=== PATIENT | male | born 1950 | race Caucasian/White ===

== ENCOUNTER → 2016-09-26 | Outpatient (CLI) | payer MEDICARE, OTHER ==
--- NOTE | 2016-09-27 17:20 | CR ---
EXAM DATE: 09/26/16 PATIENT'S AGE: 66 Patient: KATHERYN RAMIREZ Facility: [place], [place] Site . Site : 1950 Study: XRay Knee Left [id number]/9/2017 10:50:38 AM Ordering Physician: Luisa Tam Final Report: Indication: Osteoarthritis. Technique: Weightbearing AP and lateral views of the left knee as well as a sunrise view. Comparison: None. Findings: No obvious joint effusion. Mild narrowing at all 3 compartments with early marginal osteophyte formation. Mild chondrocalcinosis. Possible 8 mm loose body in the posterolateral aspect of the medial compartment. Impression: 1. Osteoarthritis, as above. 2. Chondrocalcinosis. 3. Possible 8 mm loose body. Dictated by Wilson Layne MD @ Sep 27 2016 2:14PM (Electronic Signature) Report Signed by Proxy and Original Signed Document filed in the Medical Record. JOHN
== END ==
LOC: MW.CHFP 10:22
PROVIDERS: ATTEND Family Medicine
DX: M17.12 Unilateral primary osteoarthritis, left knee (principal); M11.262 Other chondrocalcinosis, left knee
CPT/HCPCS: 20610; 73562-26-LT; 73562-LT; G0463; J3301

== ENCOUNTER → 2016-09-27 | Outpatient (CLI) | payer MEDICARE, OTHER | LOC: MW.CHENT 08:00 | PROVIDERS: ATTEND Otolaryngology | DX: H91.90 Unspecified hearing loss, unspecified ear (principal); H61.20 Impacted cerumen, unspecified ear; Z98.890 Other specified postprocedural states | CPT/HCPCS: 69210; G0463 ==

== ENCOUNTER → 2016-10-10 | Outpatient (CLI) | payer MEDICARE, OTHER ==
--- NOTE | 2016-10-10 12:44 | CR ---
EXAMINATION: Left knee HISTORY: Osteoarthritis COMPARISON: 09/26/2016 TECHNIQUE: PA view FINDINGS/IMPRESSION: There is moderate joint space narrowing within the medial compartment and mild joint space narrowing within the lateral compartment. Chondrocalcinosis is noted, likely CPPD. No fr acture or acute osseous abnormality.
== END ==
LOC: MW.CHORTHO 07:47
PROVIDERS: ATTEND Orthopaedic Surgery
DX: M17.12 Unilateral primary osteoarthritis, left knee (principal)
CPT/HCPCS: 73560-26-LT; 73560-LT; 99203

== ENCOUNTER → 2016-11-05 | Outpatient (CLI) | payer MEDICARE, OTHER | LOC: MW.CHORTHO 08:00 | PROVIDERS: ATTEND Orthopaedic Surgery | DX: M17.12 Unilateral primary osteoarthritis, left knee (principal) | CPT/HCPCS: G0463 ==

== ENCOUNTER 2017-10-13 09:31 | Inpatient (IN) | payer MEDICARE, OTHER ==
[~2017-10-13 09:31] MED LIST: Acetaminophen 1,000 MG in Premix Bag 1 BAG IV SCH; Famotidine 20 MG/2 ML SDV IVPUSH SCH; Ketorolac 30 MG/ML SDV IVPUSH SCH; Ropivacaine 49.25 ML, Ketorolac 30 MG, EPINEPHrine 0.5 MG, cloNIDine 80 MCG in Sodium C... INJECT SCH; Scopolamine 1.5 MG Transdermal Patch TRDERM SCH; Tranexamic Acid 4,000 MG in Sodium Chloride 0.9% 100 ML IV SCH; ceFAZolin 2 GM in Premix Bag 1 BAG IV SCH; oxyCODONE ER 20 MG TAB.ER PO SCH
[2017-10-13] MEDS: Lactated Ringers 1,000 ML IV SCH ×2 (09:54→18:29)
[2017-10-13] MEDS: oxyCODONE ER 10 MG TAB.ER PO SCH ×2 (10:04→20:29)
[2017-10-13] MEDS ORDERED: Propofol 200 MG/20 ML SDV ONE (11:34)
[2017-10-13] MEDS ORDERED: Lidocaine 2% 5 ML SDV ONE (11:34)
--- NOTE | 2017-10-13 11:34 | PCM.PREANE ---
Preanesthetic Assessment - Procedure Proposed Procedure: Left TKR - Anesthesia/Transfusion/Family Hx Anesthesia History: Prior Anesthesia Without Reaction Family History of Anesthesia Reaction: No Intubation History: Unknown - Review of Systems General: Weakness (right side hemiplegia due to stroke >10 years ago) Pulmonary: Other (snores; per - he has sleep apnea but avoids Dx: no CPAP ) Cardiovascular: No Symptoms Gastrointestinal: No Symptoms Neurological: Pre-Existing Deficit (right hemiplegia) Other: Reports: Diabetes - Physical Assessment NPO Status Date: 10/12/17 NPO Status Time: 23:00 O2 Sat by Pulse Oximetry: 95 Respiratory Rate: 16 Vital Signs: Last Vital Signs Temp 96.8 F 10/13/17 09:54 Pulse 59 L 10/13/17 09:54 Resp 16 10/13/17 09:54 BP 147/70 H 10/13/17 09:54 Pulse Ox 95 10/13/17 09:54 Height: 5 ft 9 in Weight: 218 lb ASA Class: 3 Mental Status: Alert & Oriented x3 Airway Class: Mallampati = 2 Dentition: Reports: Normal Dentition, [place](s) (#11) Thyro-Mental Finger Breadths: 3 Mouth Opening Finger Breadths: 3 ROM/Head Extension: Limited/Partial Lungs: Clear to Auscultation, Normal Respiratory Effort Cardiovascular: Regular Rate, Regular Rhythm, No Murmurs - Lab Values: Laboratory Last Values Blood Type A POSITIVE 10/13/17 10:23 Antibody Screen NEGATIVE 10/13/17 10:23 - Allergies Allergies/Adverse Reactions: Allergies Allergy/AdvReac Type Severity Reaction Status Date / Time No Known Allergies Allergy Verified 10/08/17 14:35 - Blood Blood Available: No - Anesthesia Plan Pre-Op Medication Ordered: Other (per surgeon protocol) - Acknowledgements Anesthesia Type Planned: Spinal (sedation/genral PRN) Pt an Appropriate Candidate for the Planned Anesthesia: Yes Alternatives and Risks of Anesthesia Discussed w Pt/Guardian: Yes Pt/Guardian Understands and Agrees with Anesthesia Plan: Yes PreAnesthesia Questionnaire Other HEENT History: top permanent partial, has reading glasses Cardiovascular History: Reports: High Cholesterol, Hypertension Respiratory History: Reports: Sleep Apnea Other Respiratory History: does not use CPAP Gastrointestinal History: Reports: Other (See Below) Other Gastrointestinal History: occasional heartburn Genitourinary History: Reports: BPH Musculoskeletal History: Reports: Osteoarthritis Neurological History: Reports: CVA Other Neuro History: "stroke 12 yrs ago" Psychiatric History: Reports: Anxiety, Depression Endocrine/Metabolic History: Reports: Diabetes, Type II, Obesity/BMI 30+ - Past Surgical History Head Surgeries/Procedures: Reports: None GI Surgical History: Reports: Colonoscopy, Hernia, Abdominal Male Surgical History: Reports: Vasectomy Musculoskeletal Surgical History: Reports: Shoulder Surgery Other Musculoskeletal Surgeries/Procedures:: hx rt ankle fusion and rt rotator cuff repair - SUBSTANCE USE Smoking Status *Q: Never Smoker Recreational Drug Use History: No - HOME MEDS Home Medications: Home Meds Aspirin [[place] Aspirin] 81 mg PO DAILY 10/08/17 [History] Escitalopram Oxalate 20 mg PO DAILY 10/08/17 [History] Lisinopril 20 mg PO DAILY 10/08/17 [History] Meloxicam [Mobic] 7.5 mg PO DAILY 10/08/17 [History] Tamsulosin HCl [Flomax] 0.4 mg PO DAILY 10/08/17 [History] Tolterodine Tartrate [Tolterodine Tartrate ER] 4 mg PO DAILY 10/08/17 [History] atorvaSTATin Calcium [Atorvastatin Calcium] 40 mg PO BEDTIME 10/08/17 [History] metFORMIN HCl [Metformin HCl ER] 500 mg PO BID 10/08/17 [History] traMADol HCl [Tramadol HCl] 1 tab PO ASDIRECTED PRN 10/08/17 [History] - CURRENT (IN HOUSE) MEDS Current Meds: Current Medications Famotidine (Pepcid) 40 mg IVPUSH ONARRIVE [facility] Last Admin: 10/13/17 09:58 Dose: 40 mg Acetaminophen 1,000 mg/ Premix 100 mls @ 400 mls/hr IV ONARRIVE [facility] Last Admin: 10/13/17 10:05 Dose: 400 mls/hr Cefazolin Sodium/Dextrose 2 gm (/ Premix) 50 mls @ 100 mls/hr IV ONCALL [facility] Ropivacaine 49.25 ml/Ketorolac Tromethamine 30 mg/Epinephrine HCl 0.5 mg/ Clonidine HCl 80 mcg/ Sodium Chloride 100 mls @ 50 mls/sec INJECT ASDIRECTED [facility] Lactated Ringer's (Ringers, Lactated) 1,000 mls @ 100 mls/hr IV ASDIRECTED [facility] Last Admin: 10/13/17 09:54 Dose: 100 mls/hr Tranexamic Acid 4,000 mg/ (Sodium Chloride) 140 mls @ 600 mls/hr IV ASDIRECTED TAYE Ketorolac Tromethamine (Toradol) 30 mg IVPUSH ONARRIVE [facility] Last Admin: 10/13/17 09:59 Dose: 30 mg Oxycodone HCl (Oxycontin) 20 mg PO ONARRIVE TAYE Oxycodone HCl (Oxycontin) 10 mg PO ONARRIVE [facility] Last Admin: 10/13/17 10:04 Dose: 10 mg Scopolamine (Transderm-Scop) 1.5 mg TRDERM ONARRIVE [facility] Last Admin: 10/13/17 09:56 Dose: 1.5 mg Discontinued Medications Tranexamic Acid (Cyklokapron) Confirm Administered Dose 4,000 mg .ROUTE .STK- MED ONE Stop: 10/13/17 07:17
[2017-10-13] MEDS ORDERED: fentaNYL 100 MCG/2 ML SDV ONE (11:35)
[2017-10-13] MEDS ORDERED: Ondansetron 4 MG/2 ML SDV ONE (11:35)
[2017-10-13] MEDS ORDERED: ePHEDrine 50 MG/ML SDV ONE (11:35)
[2017-10-13] MEDS ORDERED: Midazolam 1 MG/ML 2 ML SDV ONE (11:35)
[2017-10-13] MEDS ORDERED: ceFAZolin/Dextrose,Iso-Osmotic 2 GM/50 ML Duplex Bag IV ONE (11:35)
[2017-10-13] MEDS ORDERED: Ketorolac 30 MG/ML SDV ONE (11:35)
[2017-10-13] MEDS ORDERED: fentaNYL 100 MCG/2 ML SDV IVPUSH PRN (14:00)
[2017-10-13] MEDS ORDERED: Ondansetron 4 MG/2 ML SDV IV PRN (14:35)
[2017-10-13] MEDS ORDERED: Bisacodyl 10 MG Supp RECTAL PRN (14:36)
[2017-10-13] MEDS ORDERED: Aluminum Hydroxide/Magnesium Hydroxide/Simethicone Susp 30 ML Cup PO PRN (14:36)
[2017-10-13] MEDS ORDERED: diphenhydrAMINE 25 MG Cap PO PRN (14:36)
[2017-10-13] MEDS ORDERED: oxyCODONE 5 MG Tab PO PRN (14:36)
--- NOTE | 2017-10-13 14:36 | PCM.OPNOTE ---
- General Post-Op/Procedure Note Date of Surgery/Procedure: 10/13/17 Operative Procedure(s): L TKA Post-Op Diagnosis: DJD left knee Anesthesia Technique: Moderate Sedation, Spinal Primary Surgeon: Liset Love Disaster Director: Hilda Newberry in mLs: 50 Condition: Good Free Text/Narrative:: tt=61 min #[id number]
[2017-10-13] MEDS ORDERED: Morphine PF 30 MG/30 ML PCA Vial IV SCH (14:45)
--- NOTE | 2017-10-13 15:16 | PCM.POSTAN ---
POST ANESTHESIA ASSESSMENT - MENTAL STATUS Mental Status: Alert, Oriented - RESPIRATORY Respiratory Status: Respiratory Rate WNL, Airway Patent, O2 Saturation Stable, Supplemental Oxygen - CARDIOVASCULAR CV Status: Pulse Rate WNL, Blood Pressure Stable - GASTROINTESTINAL GI Status: No Symptoms - PAIN Pain Score: 0 - POST OP HYDRATION Hydration Status: Adequate & Stable
--- NOTE | 2017-10-13 16:24 | OR ---
SURGEON: Liset Love MD DATE OF PROCEDURE: 10/13/2017 PREOPERATIVE DIAGNOSIS: Degenerative joint disease of left knee, tricompartmental. POSTOPERATIVE DIAGNOSIS: Degenerative joint disease of left knee, tricompartmental. PROCEDURE: Left total knee arthroplasty. BAKERY TEAM LEADER: Hilda Newberry PA-C. ANESTHESIA: Spinal with sedation. ESTIMATED BLOOD LOSS: 50 mL. TOURNIQUET TIME: 61 minutes. COMPLICATIONS: None. DVT PROPHYLAXIS: PAS boot and MIKE hose to the nonoperative leg. IMPLANTS USED: Janiya Persona femoral component size 10 standard (LPS), tibial component size G, 12 mm all-polyethylene articular surface, and 32 mm all-polyethylene patella. INTRAOPERATIVE FINDINGS: Showed severe tricompartmental degenerative changes with osteophyte formation. Multiple loose bodies were noted within the joint. No significant synovitis was noted. BRIEF HISTORY: Russell is a 67-year-old male, who has had complaint of progressive left knee pain. He has attempted conservative treatment, which did not give him lasting improvement. Due to his lack of response to conservative treatment, I did recommend surgical intervention. The risks and goals of the procedure were discussed with the patient and were documented preoperatively. He agreed to proceed. DESCRIPTION OF PROCEDURE: The patient was properly identified and brought to the operating room. The patient was then transferred from the operating room cart and placed on the operating table in a supine position. Anesthesia was administered by the anesthesia staff. After adequate anesthesia was obtained, a well-padded tourniquet was applied to the surgical lower extremity. Patiño catheter was placed. The lower extremity was then prepped in standard fashion using ChloraPrep solution. It was then sterilely draped. A time-out was performed to ensure correct site and procedure. Preoperative antibiotics were given along with one gram tranexamic acid IV. The surgical site had been marked preoperatively. An Esmarch was used to exsanguinate the right lower extremity and the tourniquet was inflated. An incision was made over the anterior aspect of the knee. The subcutaneous tissues were dissected down to the level of the fascia. A medial parapatellar approach to the knee was made. A portion of the infrapatellar fat pad was then excised. The distal femur was then exposed. The step reamer was used to gain access to the intramedullary canal. This was placed in 6 degrees of valgus. Pins were placed. The distal femoral cutting block was placed and the distal femoral cut was made. Instrumentation was then removed. The femur was then sized. Both Whitesides' line and the epicondylar axis were then marked with electrocautery. The 4-in-1 cutting block was placed. This was placed in a slightly externally rotated position, which corresponded well with the previously drawn lines. The cutting guide was then pinned into position. An Crispin wing guide was used to check the depth of resection of our anterior condylar cut and it was felt that no notching would occur. The anterior condylar cut was then made followed by the posterior condylar cut. Both the posterior chamfer and anterior chamfer cuts were then made. The cutting block was then removed along with the excess bony remnants. We then turned our attention to the tibia. The anterior cruciate ligament and posterior cruciate ligament were released and a posterior cruciate ligament retractor was placed to allow the tibia to be pulled anteriorly. The tibial extra-medullary guide was then positioned. We chose to take approximately 2 mm off the lowest side. The proximal tibia cutting guide was then placed and screwed into position. The proximal tibial resection was then made with care being taken to protect the patellar tendon. The bony resection was then removed. The remainder of the medial and lateral meniscus were then excised. Care was taken to protect the popliteus tendon. The tibia was then sized to the appropriate size. The distal femur was then elevated. The posterior capsule was stripped off the distal femur both medially and laterally. The posterior capsule along with the medial and lateral gutters were then injected with a standard mixture consisting of clonidine, epinephrine, Toradol, and ropivacaine unless any allergies were found preoperatively. The femoral component was then placed onto the distal femur in a slightly lateral position. This fit the femur well. A box cut was then made without difficulty. This was then removed. The tibial trial along with the polyethylene liner was then placed. The knee came easily into full extension and was stable to varus and valgus stressing both in full extension and flexion, any additional releases were performed at this time. We then returned our attention to the patella. The patella was everted and towel clamps were used to hold the patella in position. It was resected to a 15 millimeter thickness. It was then sized to the appropriate size. It was prepared in the usual fashion after placing the predetermined size clamps. This was placed in a slightly superior and medial position. The clamp was then removed. The patellar trial button was placed. The knee was taken through a range of motion using the no-touch technique. The patella tracked centrally. A drop keke was then placed to check alignment. All instruments were then removed from the knee. The tibial sizer was then placed on the tibia. The tibia was prepared in the usual fashion using the reamer and broach. This was then removed. All bony surfaces were copiously irrigated with Pulsavac solution. They were then suctioned dry. Cement was prepared on the back table in the usual manner. Antibiotic impregnated cement was used if the patient was diabetic. Once it was prepared, the bone ends were again suctioned dry. The tibia was cemented into place first. This was malleted into position. Excess cement was then cleared. The femur was then placed in a similar manner. We placed the polyethylene trial into place and the knee was brought into full extension. An axial load was placed while keeping the knee in full extension. The patella button was also cemented into position and the clamp was used to hold this in place as the cement was allowed to cure. The wound was copiously irrigated with saline using a Pulsavac supervisor fireworks assembly. Following this, 1 gram of tranexamic acid was applied topically to the wound during the curing process. After we had adequate curing of the cement, the knee was again taken through a range of motion. The size of the polyethylene was then determined. The polyethylene trial was then removed. The tibial tray was suctioned to make sure there was no remaining soft tissue or cement. Excess cement was cleared from around the edges of the prosthesis as well. The tourniquet was then deflated. We were able to observe for any excess bleeding and none was noted. Electrocautery was used to maintain hemostasis. An additional gram of tranexamic acid was given IV. The retractors were again placed and the predetermined polyethylene was then placed. This was locked into position without difficulty. The knee was again taken through a range of motion with no change from the prior exam. The fascial layer was closed with #1 Vicryl. The subcutaneous tissues were closed with 2-0 Vicryl. The skin was closed with daksha. Xeroform gauze was placed over the wound and a bulky dressing was applied. The patient was then awakened from anesthesia and transferred back to the operating room cart. They were brought to the recovery room in stable condition. All needle and sponge counts were correct. LAURITA / NATALIIA /[id number]
--- NOTE | 2017-10-13 16:27 | PCM.CONS ---
H&P History of Present Illness - General Date of Service: 10/13/17 Admit Problem/Dx: Admission Diagnosis/Problem Admission Diagnosis/Problem Replacement of total knee joint Source of Information: Patient, Old Records (Dr Justin Love pre-operative note reviewed) History Limitations: Reports: No Limitations - History of Present Illness Initial Comments - Free Text/Narative: This 67 year old male with pmh of CVA 10+ years ago, DM Type 2, HTN, dyslipidemia, and BPH presented today for L TKA with Dr Love. He recently has arrived to Med/Surg from PACU. He reports he is doing well, no pain at this time. Denies chest pain, SOB or N/V. He is alert, but drowsy from pain medications. and daughter at bedside. Hospitalist service consulted for medical management. - Related Data Allergies/Adverse Reactions: Allergies Allergy/AdvReac Type Severity Reaction Status Date / Time No Known Allergies Allergy Verified 10/13/17 11:55 Home Medications: Home Meds Aspirin [[place] Aspirin] 81 mg PO DAILY 10/08/17 [History] Escitalopram Oxalate 20 mg PO DAILY 10/08/17 [History] Lisinopril 20 mg PO DAILY 10/08/17 [History] Meloxicam [Mobic] 7.5 mg PO DAILY 10/08/17 [History] Tamsulosin HCl [Flomax] 0.4 mg PO DAILY 10/08/17 [History] Tolterodine Tartrate [Tolterodine Tartrate ER] 4 mg PO DAILY 10/08/17 [History] atorvaSTATin Calcium [Atorvastatin Calcium] 40 mg PO BEDTIME 10/08/17 [History] metFORMIN HCl [Metformin HCl ER] 500 mg PO BID 10/08/17 [History] traMADol HCl [Tramadol HCl] 1 tab PO ASDIRECTED PRN 10/08/17 [History] Past Medical History Other HEENT History: top permanent partial, has reading glasses Cardiovascular History: Reports: High Cholesterol, Hypertension. Denies: CAD Respiratory History: Reports: Sleep Apnea Other Respiratory History: does not use CPAP Gastrointestinal History: Reports: Other (See Below) Other Gastrointestinal History: occasional heartburn Genitourinary History: Reports: BPH Musculoskeletal History: Reports: Osteoarthritis Neurological History: Reports: CVA (12 years ago) Psychiatric History: Reports: Anxiety, Depression Endocrine/Metabolic History: Reports: Diabetes, Type II, Obesity/BMI 30+ Oncologic (Cancer) History: Reports: None - Past Surgical History Head Surgeries/Procedures: Reports: None GI Surgical History: Reports: Colonoscopy, Hernia, Abdominal Male Surgical History: Reports: Vasectomy Musculoskeletal Surgical History: Reports: Shoulder Surgery Other Musculoskeletal Surgeries/Procedures:: hx rt ankle fusion and rt rotator cuff repair Social & Family History - Tobacco Use Smoking Status *Q: Never Smoker - Alcohol Use Alcohol Use History: No - Recreational Drug Use Recreational Drug Use: No - Living Situation & Occupation Living situation: Reports: H&P Review of Systems - Review of Systems: Review Of Systems: See Below General: Reports: No Symptoms. Denies: Fever, Chills, Malaise, Weakness, Fatigue Pulmonary: Reports: No Symptoms. Denies: Shortness of Breath Cardiovascular: Reports: No Symptoms. Denies: Chest Pain, Palpitations, Edema, Lightheadedness Gastrointestinal: Reports: No Symptoms. Denies: Abdominal Pain, Black Stool, Bloody Stool, Nausea, Vomiting Genitourinary: Reports: No Symptoms. Denies: Dysuria, Frequency, Burning Musculoskeletal: Reports: No Symptoms. Denies: Joint Pain Skin: Reports: No Symptoms Neurological: Reports: No Symptoms. Denies: Confusion Exam - Exam Exam: See Below - Vital Signs Vital Signs: Last Vital Signs Temp 97.7 F 10/13/17 14:31 Pulse 61 10/13/17 15:06 Resp 13 10/13/17 15:11 BP 119/58 L 10/13/17 15:11 Pulse Ox 97 10/13/17 15:11 Weight: 98.883 kg - Exam Quality Assessment: Supplemental Oxygen, Urinary Catheter, DVT Prophylaxis General: Alert, Oriented, Cooperative HEENT: Conjunctiva Clear, Posterior Pharynx Clear Neck: Supple, Trachea Midline Lungs: Clear to Auscultation, Normal Respiratory Effort Cardiovascular: Regular Rate, Regular Rhythm, Normal S1, Normal S2. No: Systolic Murmur GI/Abdominal Exam: Normal Bowel Sounds, Soft, Non-Tender, No Organomegaly, No Distention, No Abnormal Bruit, No Mass, Pelvis Stable Extremities: Normal Inspection, Normal Range of Motion, Non-Tender, No Pedal Edema, Normal Capillary Refill Skin: Incision (Dressing intact to L knee, polar care in place) Neuro Extensive - Mental Status: Alert, Oriented x3, Normal Mood/Affect Neuro Extensive - Motor, Sensory, Reflexes: CN II-XII Intact Psychiatric: Alert, Normal Affect, Normal Mood - Patient Data Lab Results Last 24 hrs: Laboratory Results - last 24 hr 10/13/17 10/13/17 Range/Units 10:23 14:38 POC Glucose 100 (60-110) mg/dL Blood Type A POSITIVE Antibody Screen NEGATIVE Consult PN Assessment/Plan Procedures: Procedures ASSAY OF BLOOD/URIC ACID (07/02/16) COMPLETE CBC W/AUTO DIFF WBC (09/24/17) COMPREHEN METABOLIC PANEL (04/04/17) GLYCOSYLATED HEMOGLOBIN TEST (09/24/17) IIV4 VACC NO PRSV 0.5 ML IM (04/04/17) LIPID PANEL (04/04/17) METABOLIC PANEL TOTAL CA (09/24/17) MRI JNT OF LWR EXTRE W/O DYE (09/03/17) OFFICE/OUTPATIENT VISIT EST (09/24/17) OFFICE/OUTPATIENT VISIT EST (10/11/15) OFFICE/OUTPATIENT VISIT NEW (07/24/15) PPSV23 VACC 2 YRS+ SUBQ/IM (04/04/17) PROTHROMBIN TIME (09/24/17) RBC SED RATE AUTOMATED (07/02/16) ROUTINE VENIPUNCTURE (09/24/17) THER/PROPH/DIAG INJ SC/IM (04/16/16) UR ALBUMIN SEMIQUANTITATIVE (01/02/17) URINALYSIS AUTO W/SCOPE (09/24/17) X-RAY EXAM CHEST 2 VIEWS (09/24/17) X-RAY EXAM NECK SPINE 2-3 VW (02/06/17) X-RAY EXAM OF ANKLE (05/23/17) X-RAY EXAM OF KNEE 3 (09/26/16) X-RAY EXAM OF SHOULDER (02/06/17) (1) S/P total knee arthroplasty SNOMED Code(s): 6783274035542, 1497653615572 Code(s): Z96.659 - PRESENCE OF UNSPECIFIED ARTIFICIAL KNEE JOINT Current Visit: Yes Qualifiers: Laterality: left Qualified Code(s): Z96.652 - Presence of left artificial knee joint (2) DM type 2 (diabetes mellitus, type 2) SNOMED Code(s): 97888863 Code(s): E11.9 - TYPE 2 DIABETES MELLITUS WITHOUT COMPLICATIONS Current Visit: Yes Qualifiers: Diabetes mellitus chcf insulin use: without chcf use Diabetes mellitus complication status: without complication Qualified Code(s): E11.9 - Type 2 diabetes mellitus without complications (3) HTN (hypertension) SNOMED Code(s): 12192148 Code(s): I10 - ESSENTIAL (PRIMARY) HYPERTENSION Current Visit: Yes Qualifiers: Hypertension type: essential hypertension Qualified Code(s): I10 - Essential (primary) hypertension (4) Dyslipidemia SNOMED Code(s): 212129712 Code(s): E78.5 - HYPERLIPIDEMIA, UNSPECIFIED Current Visit: Yes (5) BPH (benign prostatic hyperplasia) SNOMED Code(s): 621954680 Code(s): N40.0 - BENIGN PROSTATIC HYPERPLASIA WITHOUT LOWER URINRY TRACT SYMP Current Visit: Yes Qualifiers: Lower urinary tract symptom presence: symptoms absent Qualified Code(s): N40.0 - Benign prostatic hyperplasia without lower urinary tract symptoms (6) History of CVA (cerebrovascular accident) SNOMED Code(s): 028579010 Code(s): Z86.73 - PRSNL HX OF TIA (TIA), AND CEREB INFRC W/O RESID DEFICITS Current Visit: Yes (7) Depression SNOMED Code(s): 46824848 Code(s): F32.9 - MAJOR DEPRESSIVE DISORDER, SINGLE EPISODE, UNSPECIFIED Current Visit: Yes Qualifiers: Depression Type: unspecified Qualified Code(s): F32.9 - Major depressive disorder, single episode, unspecified Problem List Initiated/Reviewed/Updated: Yes My Orders Last 24 Hours: My Active Orders 10/13/17 16:15 BMP [BASIC METABOLIC PANEL,BMP] [CHEM] Routine CBC WITH AUTO DIFF [HEME] Routine 10/13/17 16:19 Blood Glucose Check, Bedside [RC] TIDAC 10/13/17 17:00 Insulin Aspart [NovoLOG] See Protocol SUBCUT TIDAC Plan: This 67 year old male admitted with L TKA has pmh of HTN, DM type 2, Hx CVA and BPH. Hospitalist service consulted due to comorbidities 1. S/P L TKA: Per Orthopedics 2. DM Type 2: Controlled Hold Metformin post-operatively. May restart upon discharge home. Novolog SSI low with TIDAC blood sugar checks. Last A1c 6.1. Monitor BMP daily. Patient and family ( and daughter) educated on holding Metformin during stay. 3. HTN: Stable, continue Lisinopril. 4. Hx CVA: Stable. Due to adverse cardiovascular thrombotic events will stop Celebrex and Toradol. Monitor during stay. 5. BPH: Stable on Flomax, continue this during stay. VTE prophylaxis: Would recommended when deemed appropriate by Ortho, currently on ASA BID.
[2017-10-13] MEDS: Acetaminophen 1,000 MG in Premix Bag 1 BAG IV SCH ×2 (16:45→21:38)
--- NOTE | 2017-10-13 16:51 | CR ---
EXAMINATION: Left knee HISTORY: TKA COMPARISON: 09/03/2017 TECHNIQUE: 2 views FINDINGS/IMPRESSION: Left total knee hardware is demonstrated in good position and alignment. Postope rative soft tissue changes noted.
[2017-10-13] MEDS: Insulin Aspart 100 Units/ML 3 ML Pen SUBCUT SCH (17:11)
[2017-10-13 17:46] LABS: CHLORIDE,CL 108 mmol/L (98-107); SODIUM,NA 143 mmol/L (136-148)
[2017-10-13] MEDS ORDERED: Ketorolac 15 MG/ML SDV IVPUSH SCH (20:00)
[2017-10-13] MEDS: Docusate Sodium 100 MG Cap PO SCH (20:29)
[2017-10-13] MEDS: ceFAZolin 2 GM in Premix Bag 1 BAG IV SCH (20:30)
[2017-10-13] MEDS ORDERED: atorvaSTATin 40 MG Tab PO SCH (21:00)
[2017-10-13] MEDS ORDERED: metFORMIN 500 MG Tab.ER PO SCH (21:00)
[2017-10-14] MEDS: Insulin Aspart 100 Units/ML 3 ML Pen SUBCUT SCH ×3 (07:30→16:56)
[2017-10-14] MEDS ORDERED: Acetaminophen/oxyCODONE 325-5 MG Tab PO PRN (08:00)
[2017-10-14] MEDS ORDERED: Morphine 4 MG/ML Syringe IVPUSH PRN (08:00)
[2017-10-14] MEDS: Famotidine 20 MG Tab PO SCH (09:00)
[2017-10-14] MEDS ORDERED: Aspirin 325 MG Tab PO SCH (09:00)
[2017-10-14] MEDS: Docusate Sodium 100 MG Cap PO SCH ×2 (09:00→21:28)
[2017-10-14] MEDS: Tamsulosin 0.4 MG Cap.ER PO SCH (09:00)
[2017-10-14] MEDS: Lisinopril 10 MG Tab PO SCH (09:00)
[2017-10-14] MEDS: Escitalopram 10 MG Tab PO SCH (09:00)
[2017-10-14] MEDS: Tolterodine 2 MG Cap.ER PO SCH (09:00)
[2017-10-14] MEDS ORDERED: Celecoxib 100 MG Cap PO SCH (09:00)
[2017-10-14] MEDS ORDERED: Sodium Chloride 0.9% 10 ML Syringe FLUSH PRN (09:43)
[2017-10-14] MEDS ORDERED: Sodium Chloride 0.9% 2.5 ML Syringe FLUSH PRN (09:43)
--- NOTE | 2017-10-14 09:43 | PCM.CONSN ---
- General Info Date of Service: 10/14/17 Admission Dx/Problem (Free Text): Admission Diagnosis/Problem Admission Diagnosis/Problem Replacement of total knee joint Subjective Update: Laying in bed this morning, reports feeling ok. No chest pain or SOB. Knee pain is tolerable. Slight confusion noted. Encouraged to use IS. Functional Status: Reports: Pain Controlled, Tolerating Diet, Ambulating - Review of Systems General: Reports: No Symptoms. Denies: Fever, Fatigue Pulmonary: Reports: No Symptoms. Denies: Shortness of Breath Cardiovascular: Reports: No Symptoms. Denies: Chest Pain Gastrointestinal: Reports: No Symptoms. Denies: Abdominal Pain, Nausea, Vomiting Musculoskeletal: Reports: Joint Pain (L knee pain tolerable.) Neurological: Reports: Confusion. Denies: Dizziness, Numbness, Trouble Speaking , Weakness, Change in Speech - Patient Data Vitals - Most Recent: Last Vital Signs Temp 96.8 F 10/14/17 00:06 Pulse 62 10/14/17 00:06 Resp 18 10/14/17 00:06 BP 110/58 L 10/14/17 00:06 Pulse Ox 93 L 10/14/17 00:06 Weight - Most Recent: 98.883 kg I&O - Last 24 Hours: Intake & Output 10/13/17 10/14/17 10/14/17 22:59 06:59 14:59 Intake Total 2900 Output Total 290 Balance 2610 Lab Results Last 24 Hours: Laboratory Results - last 24 hr 10/13/17 10/13/17 10/13/17 Range/Units 10:23 14:38 16:43 WBC (4.0-11.0) K/uL RBC (4.50-5.90) M/uL Hgb (13.0-17.0) g/dL Hct (38.0-50.0) % MCV (80.0-98.0) fL MCH (27.0-32.0) pg MCHC (31.0-37.0) g/dL RDW Std Deviation (28.0-62.0) fl RDW Coeff of Shea (11.0-15.0) % Plt Count (150-400) K/uL MPV (7.40-12.00) fL Add Manual Diff Neutrophils % (Manual) (48.0-80.0) % Lymphocytes % (Manual) (16.0-40.0) % Monocytes % (Manual) (0.0-15.0) % Nucleated RBC % /100WBC Absolute Seg Neuts (1.4-5.7) Lymphocytes # (Manual) (0.6-2.4) Monocytes # (Manual) (0.0-0.8) Nucleated RBCs # K/uL Sodium (136-148) mmol/L Potassium (3.5-5.1) mmol/L Chloride (98-107) mmol/L Carbon Dioxide (21.0-32.0) mmol/L BUN (7.0-18.0) mg/dL Creatinine (0.8-1.3) mg/dL Est Cr Clr Drug Dosing mL/min Estimated GFR (MDRD) ml/min Glucose (74-106) mg/dL POC Glucose 100 84 (60-110) mg/dL Calcium (8.5-10.1) mg/dL Blood Type A POSITIVE Antibody Screen NEGATIVE 10/13/17 10/13/17 Range/Units 16:55 16:55 WBC 4.99 (4.0-11.0) K/uL RBC 4.03 L (4.50-5.90) M/uL Hgb 12.3 L (13.0-17.0) g/dL Hct 37.9 L (38.0-50.0) % MCV 94.0 (80.0-98.0) fL MCH 30.5 (27.0-32.0) pg MCHC 32.5 (31.0-37.0) g/dL RDW Std Deviation 47.3 (28.0-62.0) fl RDW Coeff of Shea 14 (11.0-15.0) % Plt Count 163 (150-400) K/uL MPV 8.90 (7.40-12.00) fL Add Manual Diff YES Neutrophils % (Manual) 38 L (48.0-80.0) % Lymphocytes % (Manual) 46 H (16.0-40.0) % Monocytes % (Manual) 16 H (0.0-15.0) % Nucleated RBC % 0.0 /100WBC Absolute Seg Neuts 1.9 (1.4-5.7) Lymphocytes # (Manual) 2.3 (0.6-2.4) Monocytes # (Manual) 0.8 (0.0-0.8) Nucleated RBCs # 0 K/uL Sodium 143 (136-148) mmol/L Potassium 4.6 (3.5-5.1) mmol/L Chloride 108 H (98-107) mmol/L Carbon Dioxide 29.5 (21.0-32.0) mmol/L BUN 22 H (7.0-18.0) mg/dL Creatinine 0.8 (0.8-1.3) mg/dL Est Cr Clr Drug Dosing 88.38 mL/min Estimated GFR (MDRD) > 60.0 ml/min Glucose 81 (74-106) mg/dL POC Glucose (60-110) mg/dL Calcium 8.0 L (8.5-10.1) mg/dL Blood Type Antibody Screen Med Orders - Current: Current Medications Al Hydroxide/Mg Hydroxide (Mag-Al Plus) 30 ml PO Q4H PRN PRN Reason: indigestion Aspirin (Aspirin) 325 mg PO BID [facility] Atorvastatin Calcium (Lipitor) 40 mg PO BEDTIME [facility] Last Admin: 10/13/17 20:30 Dose: 40 mg Bisacodyl (Dulcolax) 10 mg RECTAL DAILY PRN PRN Reason: Constipation Diphenhydramine HCl (Benadryl) 25 - 50 mg PO Q6H PRN PRN Reason: Itching Docusate Sodium (Colace) 100 mg PO BID [facility] Last Admin: 10/13/17 20:29 Dose: 100 mg Escitalopram Oxalate (Lexapro) 20 mg PO DAILY [facility] Famotidine (Pepcid) 40 mg IVPUSH ONARRIVE [facility] Last Admin: 10/13/17 09:58 Dose: 40 mg Famotidine (Pepcid) 40 mg PO DAILY [facility] Fentanyl (Sublimaze) 50 mcg IVPUSH Q5M PRN PRN Reason: Pain (severe 7-10) Stop: 10/14/17 14:00 Acetaminophen 1,000 mg/ Premix 100 mls @ 400 mls/hr IV ONARRIVE [facility] Last Admin: 10/13/17 10:05 Dose: 400 mls/hr Cefazolin Sodium/Dextrose 2 gm (/ Premix) 50 mls @ 100 mls/hr IV ONCALL [facility] Ropivacaine 49.25 ml/Ketorolac Tromethamine 30 mg/Epinephrine HCl 0.5 mg/ Clonidine HCl 80 mcg/ Sodium Chloride 100 mls @ 50 mls/sec INJECT ASDIRECTED [facility] Lactated Ringer's (Ringers, Lactated) 1,000 mls @ 100 mls/hr IV ASDIRECTED [facility] Last Admin: 10/13/17 18:29 Dose: 100 mls/hr Tranexamic Acid 4,000 mg/ (Sodium Chloride) 140 mls @ 600 mls/hr IV ASDIRECTED [facility] Insulin Aspart (Novolog) 0 unit SUBCUT TIDAC [facility]; Protocol Last Admin: 10/13/17 17:11 Dose: Not Given Ketorolac Tromethamine (Toradol) 30 mg IVPUSH ONARRIVE [facility] Last Admin: 10/13/17 09:59 Dose: 30 mg Lisinopril (Prinivil) 20 mg PO DAILY [facility] Morphine Sulfate (Morphine) 1 - 3 mg IVPUSH Q3H PRN PRN Reason: Pain Ondansetron HCl (Zofran) 4 mg IV Q6HR PRN PRN Reason: NAUSEA/VOMITING Oxycodone HCl (Oxycontin) 20 mg PO ONARRIVE [facility] Oxycodone HCl (Oxycontin) 10 mg PO ONARRIVE [facility] Last Admin: 10/13/17 10:04 Dose: 10 mg Oxycodone HCl (Oxycontin) 10 mg PO Q12HR [facility] Last Admin: 10/13/17 20:29 Dose: 10 mg Oxycodone/Acetaminophen (Percocet 325-5 Mg) 1 - 2 tab PO Q4H PRN PRN Reason: Pain Scopolamine (Transderm-Scop) 1.5 mg TRDERM ONARRIVE [facility] Last Admin: 10/13/17 09:56 Dose: 1.5 mg Tamsulosin HCl (Flomax) 0.4 mg PO DAILY [facility] Tolterodine Tartrate (Detrol La 24 Hr) 4 mg PO DAILY [facility] Discontinued Medications Cefazolin Sodium/Dextrose (Ancef) Confirm Administered Dose 2 gm IV .STK-MED ONE Stop: 10/13/17 11:36 Celecoxib (Celebrex) 200 mg PO BID [facility] Ephedrine Sulfate (Ephedrine Sulfate) Confirm Administered Dose 50 mg .ROUTE .STK-MED ONE Stop: 10/13/17 11:36 Fentanyl (Sublimaze) Confirm Administered Dose 100 mcg .ROUTE .STK-MED ONE Stop: 10/13/17 11:36 Acetaminophen 1,000 mg/ Premix 100 mls @ 400 mls/hr IV Q6H [facility] Stop: 10/14/17 04:14 Last Admin: 10/13/17 21:38 Dose: 400 mls/hr Cefazolin Sodium/Dextrose 2 gm (/ Premix) 50 mls @ 100 mls/hr IV Q8H [facility] Stop: 10/14/17 04:59 Last Admin: 10/13/17 20:30 Dose: 100 mls/hr Ketorolac Tromethamine (Toradol) Confirm Administered Dose 30 mg .ROUTE .STK- MED ONE Stop: 10/13/17 11:36 Ketorolac Tromethamine (Toradol) 15 mg IVPUSH Q6H [facility] Stop: 10/14/17 04:00 Lidocaine (Xylocaine-Mpf 2%) Confirm Administered Dose 10 ml .ROUTE .STK-MED ONE Stop: 10/13/17 11:35 Metformin HCl (Glucophage Xr) 500 mg PO BID [facility] Midazolam HCl (Versed 1 Mg/Ml) Confirm Administered Dose 2 mg .ROUTE .STK-MED ONE Stop: 10/13/17 11:36 Morphine Sulfate (Morphine [employer] 30 Mg In 30 Ml) 30 mg IV ASDIRECTED [facility]; Protocol Stop: 10/14/17 08:00 Last Admin: 10/13/17 14:56 Dose: 30 mg Ondansetron HCl (Zofran) Confirm Administered Dose 4 mg .ROUTE .STK-MED ONE Stop: 10/13/17 11:36 Oxycodone HCl (Oxycodone) 5 - 10 mg PO Q4H PRN PRN Reason: Pain Stop: 10/14/17 08:00 Propofol (Diprivan 20 Ml) Confirm Administered Dose 400 mg .ROUTE .STK-MED ONE Stop: 10/13/17 11:35 Tranexamic Acid (Cyklokapron) Confirm Administered Dose 4,000 mg .ROUTE .STK- MED ONE Stop: 10/13/17 07:17 - Exam Quality Assessment: Supplemental Oxygen, Urine Catheter, DVT Prophylaxis General: Alert, Oriented (but slightly confused, thinks he is going home and up moving in room without calling for assistance.), Cooperative, No Acute Distress Lungs: Clear to Auscultation, Normal Respiratory Effort Cardiovascular: Regular Rate, Regular Rhythm GI/Abdominal Exam: Normal Bowel Sounds, Soft, Non-Tender, No Organomegaly, No Distention, No Abnormal Bruit, No Mass, Pelvis Stable Extremities: Normal Inspection, Normal Range of Motion, Non-Tender, No Pedal Edema, Normal Capillary Refill Neurological: Normal Gait, Normal Speech, Normal Tone, Strength Equal Bilateral Psy/Mental Status: Alert Consult PN Assessment/Plan Procedures: Procedures ASSAY OF BLOOD/URIC ACID (07/02/16) COMPLETE CBC W/AUTO DIFF WBC (09/24/17) COMPREHEN METABOLIC PANEL (04/04/17) GLYCOSYLATED HEMOGLOBIN TEST (09/24/17) IIV4 VACC NO PRSV 0.5 ML IM (04/04/17) LIPID PANEL (04/04/17) METABOLIC PANEL TOTAL CA (09/24/17) MRI JNT OF LWR EXTRE W/O DYE (09/03/17) OFFICE/OUTPATIENT VISIT EST (09/24/17) OFFICE/OUTPATIENT VISIT EST (10/11/15) OFFICE/OUTPATIENT VISIT NEW (07/24/15) PPSV23 VACC 2 YRS+ SUBQ/IM (04/04/17) PROTHROMBIN TIME (09/24/17) RBC SED RATE AUTOMATED (07/02/16) ROUTINE VENIPUNCTURE (09/24/17) THER/PROPH/DIAG INJ SC/IM (04/16/16) UR ALBUMIN SEMIQUANTITATIVE (01/02/17) URINALYSIS AUTO W/SCOPE (09/24/17) X-RAY EXAM CHEST 2 VIEWS (09/24/17) X-RAY EXAM NECK SPINE 2-3 VW (02/06/17) X-RAY EXAM OF ANKLE (05/23/17) X-RAY EXAM OF KNEE 3 (09/26/16) X-RAY EXAM OF SHOULDER (02/06/17) (1) S/P total knee arthroplasty SNOMED Code(s): 5926111560160, 051426360, 3690138797144 Code(s): Z96.659 - PRESENCE OF UNSPECIFIED ARTIFICIAL KNEE JOINT Current Visit: Yes Qualifiers: Laterality: left Qualified Code(s): Z96.652 - Presence of left artificial knee joint (2) DM type 2 (diabetes mellitus, type 2) SNOMED Code(s): 09225657 Code(s): E11.9 - TYPE 2 DIABETES MELLITUS WITHOUT COMPLICATIONS Current Visit: Yes Qualifiers: Diabetes mellitus assisted insulin use: without assisted use Diabetes mellitus complication status: without complication Qualified Code(s): E11.9 - Type 2 diabetes mellitus without complications (3) HTN (hypertension) SNOMED Code(s): 88487722 Code(s): I10 - ESSENTIAL (PRIMARY) HYPERTENSION Current Visit: Yes Qualifiers: Hypertension type: essential hypertension Qualified Code(s): I10 - Essential (primary) hypertension (4) Dyslipidemia SNOMED Code(s): 690165846 Code(s): E78.5 - HYPERLIPIDEMIA, UNSPECIFIED Current Visit: Yes (5) BPH (benign prostatic hyperplasia) SNOMED Code(s): 298538087 Code(s): N40.0 - BENIGN PROSTATIC HYPERPLASIA WITHOUT LOWER URINRY TRACT SYMP Current Visit: Yes Qualifiers: Lower urinary tract symptom presence: symptoms absent Qualified Code(s): N40.0 - Benign prostatic hyperplasia without lower urinary tract symptoms (6) History of CVA (cerebrovascular accident) SNOMED Code(s): 176613554 Code(s): Z86.73 - PRSNL HX OF TIA (TIA), AND CEREB INFRC W/O RESID DEFICITS Current Visit: Yes (7) Depression SNOMED Code(s): 61071113 Code(s): F32.9 - MAJOR DEPRESSIVE DISORDER, SINGLE EPISODE, UNSPECIFIED Current Visit: Yes Qualifiers: Depression Type: unspecified Qualified Code(s): F32.9 - Major depressive disorder, single episode, unspecified Problem List Initiated/Reviewed/Updated: Yes My Orders Last 24 Hours: My Active Orders 10/13/17 16:19 Blood Glucose Check, Bedside [RC] TIDA 10/13/17 17:00 Insulin Aspart [NovoLOG] See Protocol SUBCUT [facility] 10/14/17 05:11 BMP [BASIC METABOLIC PANEL,BMP] [CHEM] AM 10/15/17 05:11 BMP [BASIC METABOLIC PANEL,BMP] [CHEM] AM 10/16/17 05:11 BMP [BASIC METABOLIC PANEL,BMP] [CHEM] AM Plan: This 67 year old male admitted with L TKA has pmh of HTN, DM type 2, Hx CVA and BPH. Hospitalist service consulted due to comorbidities 1. S/P L TKA: Per Orthopedics. Some confusion noted this morning. [employer] being discontinued, may be related to narcotics. Will monitor. Will have them remove scopalamine patch. Some hypoxia noted on room air, sats 88%. Monitor with decrease in narcotics, LS clear. Encouarge IS use 10 x Q1hr. 2. DM Type 2: Controlled Hold Metformin post-operatively. May restart upon discharge home. Novolog SSI low with TIDAC blood sugar checks. Last A1c 6.1. Monitor BMP daily. Patient and family ( and daughter) educated on holding Metformin during stay. 3. HTN: Stable, continue Lisinopril. 4. Hx CVA: Stable. Due to adverse cardiovascular thrombotic events will stop Celebrex and Toradol. Monitor during stay. 5. BPH: Stable on Flomax, continue this during stay. VTE prophylaxis: Would recommended when deemed appropriate by Ortho, currently on ASA BID.
[2017-10-14] MEDS: oxyCODONE ER 10 MG TAB.ER PO SCH ×3 (10:46→23:43)
--- NOTE | 2017-10-14 11:33 | PCM48HPAN ---
Post Anesthesia Note - EVALUATION WITHIN 48HRS OF ANESTHETIC Vital Signs in Normal Range: Yes Patient Participated in Evaluation: Yes Respiratory Function Stable: Yes Airway Patent: Yes Cardiovascular Function Stable: Yes Hydration Status Stable: Yes Pain Control Satisfactory: Yes Nausea and Vomiting Control Satisfactory: Yes Mental Status Recovered: No (family reports pt somewhat confused today) Resp Rate: 16 Blood Pressure: 110/54
[2017-10-14] MEDS: ceFAZolin 2 GM in Premix Bag 1 BAG IV SCH (12:44)
[2017-10-14] MEDS: Acetaminophen 1,000 MG in Premix Bag 1 BAG IV SCH (12:44)
[2017-10-14 13:17] LABS: CHLORIDE,CL 105 mmol/L (98-107); SODIUM,NA 140 mmol/L (136-148)
--- NOTE | 2017-10-14 17:00 | PCM.SURGPN ---
- General Info Date of Service: 10/14/17 POD#: 1 Functional Status: Reports: Pain Controlled - Review of Systems General: Reports: No Symptoms HEENT: Reports: No Symptoms Pulmonary: Reports: No Symptoms Cardiovascular: Reports: No Symptoms Gastrointestinal: Reports: No Symptoms Genitourinary: Reports: No Symptoms Systems Review Comment:: Patient seen and examined at 1300. Patient currently in bed. He states he was up with physical therapy earlier today. He states his pain is better controlled. He has no other complaints at this time. - Patient Data Vitals - Most Recent: Last Vital Signs Temp 96.6 F 10/14/17 12:00 Pulse 60 10/14/17 12:00 Resp 16 10/14/17 12:00 BP 148/65 H 10/14/17 12:00 Pulse Ox 94 L 10/14/17 12:00 Weight - Most Recent: 98.883 kg I&O - Last 24 Hours: Intake & Output 10/14/17 10/14/17 10/14/17 06:59 14:59 22:59 Intake Total 336 500 Output Total 400 Balance 336 100 Lab Results Last 24 Hrs: Laboratory Results - last 24 hr 10/13/17 10/13/17 10/14/17 Range/Units 16:55 16:55 06:25 WBC 4.99 (4.0-11.0) K/uL RBC 4.03 L (4.50-5.90) M/uL Hgb 12.3 L 12.3 L (13.0-17.0) g/dL Hct 37.9 L 38.2 (38.0-50.0) % MCV 94.0 (80.0-98.0) fL MCH 30.5 (27.0-32.0) pg MCHC 32.5 (31.0-37.0) g/dL RDW Std Deviation 47.3 (28.0-62.0) fl RDW Coeff of Shea 14 (11.0-15.0) % Plt Count 163 (150-400) K/uL MPV 8.90 (7.40-12.00) fL Add Manual Diff YES Neutrophils % (Manual) 38 L (48.0-80.0) % Lymphocytes % (Manual) 46 H (16.0-40.0) % Monocytes % (Manual) 16 H (0.0-15.0) % Nucleated RBC % 0.0 /100WBC Absolute Seg Neuts 1.9 (1.4-5.7) Lymphocytes # (Manual) 2.3 (0.6-2.4) Monocytes # (Manual) 0.8 (0.0-0.8) Nucleated RBCs # 0 K/uL Sodium 143 (136-148) mmol/L Potassium 4.6 (3.5-5.1) mmol/L Chloride 108 H (98-107) mmol/L Carbon Dioxide 29.5 (21.0-32.0) mmol/L BUN 22 H (7.0-18.0) mg/dL Creatinine 0.8 (0.8-1.3) mg/dL Est Cr Clr Drug Dosing 88.38 mL/min Estimated GFR (MDRD) > 60.0 ml/min Glucose 81 (74-106) mg/dL Calcium 8.0 L (8.5-10.1) mg/dL 10/14/17 Range/Units 06:25 WBC (4.0-11.0) K/uL RBC (4.50-5.90) M/uL Hgb (13.0-17.0) g/dL Hct (38.0-50.0) % MCV (80.0-98.0) fL MCH (27.0-32.0) pg MCHC (31.0-37.0) g/dL RDW Std Deviation (28.0-62.0) fl RDW Coeff of Shea (11.0-15.0) % Plt Count (150-400) K/uL MPV (7.40-12.00) fL Add Manual Diff Neutrophils % (Manual) (48.0-80.0) % Lymphocytes % (Manual) (16.0-40.0) % Monocytes % (Manual) (0.0-15.0) % Nucleated RBC % /100WBC Absolute Seg Neuts (1.4-5.7) Lymphocytes # (Manual) (0.6-2.4) Monocytes # (Manual) (0.0-0.8) Nucleated RBCs # K/uL Sodium 140 (136-148) mmol/L Potassium 4.4 (3.5-5.1) mmol/L Chloride 105 (98-107) mmol/L Carbon Dioxide 30.5 (21.0-32.0) mmol/L BUN 21 H (7.0-18.0) mg/dL Creatinine 0.8 (0.8-1.3) mg/dL Est Cr Clr Drug Dosing 88.38 mL/min Estimated GFR (MDRD) > 60.0 ml/min Glucose 103 (74-106) mg/dL Calcium 8.2 L (8.5-10.1) mg/dL Med Orders - Current: Current Medications Al Hydroxide/Mg Hydroxide (Mag-Al Plus) 30 ml PO Q4H PRN PRN Reason: indigestion Aspirin (Aspirin) 325 mg PO BID [facility] Last Admin: 10/14/17 09:00 Dose: 325 mg Atorvastatin Calcium (Lipitor) 40 mg PO BEDTIME [facility] Last Admin: 10/13/17 20:30 Dose: 40 mg Bisacodyl (Dulcolax) 10 mg RECTAL DAILY PRN PRN Reason: Constipation Diphenhydramine HCl (Benadryl) 25 - 50 mg PO Q6H PRN PRN Reason: Itching Docusate Sodium (Colace) 100 mg PO BID [facility] Last Admin: 10/14/17 09:00 Dose: 100 mg Escitalopram Oxalate (Lexapro) 20 mg PO DAILY [facility] Last Admin: 10/14/17 09:00 Dose: 20 mg Famotidine (Pepcid) 40 mg IVPUSH ONARRIVE [facility] Last Admin: 10/13/17 09:58 Dose: 40 mg Famotidine (Pepcid) 40 mg PO DAILY [facility] Last Admin: 10/14/17 09:00 Dose: 40 mg Acetaminophen 1,000 mg/ Premix 100 mls @ 400 mls/hr IV ONARRIVE [facility] Last Admin: 10/13/17 10:05 Dose: 400 mls/hr Cefazolin Sodium/Dextrose 2 gm (/ Premix) 50 mls @ 100 mls/hr IV ONCALL [facility] Ropivacaine 49.25 ml/Ketorolac Tromethamine 30 mg/Epinephrine HCl 0.5 mg/ Clonidine HCl 80 mcg/ Sodium Chloride 100 mls @ 50 mls/sec INJECT ASDIRECTED [facility] Lactated Ringer's (Ringers, Lactated) 1,000 mls @ 100 mls/hr IV ASDIRECTED [facility] Last Admin: 10/13/17 18:29 Dose: 100 mls/hr Tranexamic Acid 4,000 mg/ (Sodium Chloride) 140 mls @ 600 mls/hr IV ASDIRECTED [facility] Insulin Aspart (Novolog) 0 unit SUBCUT TIDAC [facility]; Protocol Last Admin: 10/14/17 12:00 Dose: Not Given Ketorolac Tromethamine (Toradol) 30 mg IVPUSH ONARRIVE [facility] Last Admin: 10/13/17 09:59 Dose: 30 mg Lisinopril (Prinivil) 20 mg PO DAILY [facility] Last Admin: 10/14/17 09:00 Dose: 20 mg Morphine Sulfate (Morphine) 1 - 3 mg IVPUSH Q3H PRN PRN Reason: Pain Ondansetron HCl (Zofran) 4 mg IV Q6HR PRN PRN Reason: NAUSEA/VOMITING Oxycodone HCl (Oxycontin) 20 mg PO ONARRIVE [facility] Oxycodone HCl (Oxycontin) 10 mg PO ONARRIVE [facility] Last Admin: 10/13/17 10:04 Dose: 10 mg Oxycodone HCl (Oxycontin) 10 mg PO Q12HR [facility] Last Admin: 10/14/17 10:46 Dose: 10 mg Oxycodone/Acetaminophen (Percocet 325-5 Mg) 1 - 2 tab PO Q4H PRN PRN Reason: Pain Sodium Chloride (Saline Flush) 10 ml FLUSH ASDIRECTED PRN PRN Reason: Keep Vein Open Sodium Chloride (Saline Flush) 2.5 ml FLUSH ASDIRECTED PRN PRN Reason: Keep Vein Open Tamsulosin HCl (Flomax) 0.4 mg PO DAILY [facility] Last Admin: 10/14/17 09:00 Dose: 0.4 mg Tolterodine Tartrate (Detrol La 24 Hr) 4 mg PO DAILY [facility] Last Admin: 10/14/17 09:00 Dose: 4 mg Discontinued Medications Cefazolin Sodium/Dextrose (Ancef) Confirm Administered Dose 2 gm IV .STK-MED ONE Stop: 10/13/17 11:36 Celecoxib (Celebrex) 200 mg PO BID [facility] Ephedrine Sulfate (Ephedrine Sulfate) Confirm Administered Dose 50 mg .ROUTE .STK-MED ONE Stop: 10/13/17 11:36 Fentanyl (Sublimaze) Confirm Administered Dose 100 mcg .ROUTE .STK-MED ONE Stop: 10/13/17 11:36 Fentanyl (Sublimaze) 50 mcg IVPUSH Q5M PRN PRN Reason: Pain (severe 7-10) Stop: 10/14/17 14:00 Acetaminophen 1,000 mg/ Premix 100 mls @ 400 mls/hr IV Q6H [facility] Stop: 10/14/17 04:14 Last Admin: 10/14/17 12:44 Dose: Not Given Cefazolin Sodium/Dextrose 2 gm (/ Premix) 50 mls @ 100 mls/hr IV Q8H [facility] Stop: 10/14/17 04:59 Last Admin: 10/14/17 12:44 Dose: Not Given Ketorolac Tromethamine (Toradol) Confirm Administered Dose 30 mg .ROUTE .STK- MED ONE Stop: 10/13/17 11:36 Ketorolac Tromethamine (Toradol) 15 mg IVPUSH Q6H [facility] Stop: 10/14/17 04:00 Lidocaine (Xylocaine-Mpf 2%) Confirm Administered Dose 10 ml .ROUTE .STK-MED ONE Stop: 10/13/17 11:35 Metformin HCl (Glucophage Xr) 500 mg PO BID [facility] Midazolam HCl (Versed 1 Mg/Ml) Confirm Administered Dose 2 mg .ROUTE .STK-MED ONE Stop: 10/13/17 11:36 Morphine Sulfate (Morphine Sales Appointment Coordinator 30 Mg In 30 Ml) 30 mg IV ASDIRECTED [facility]; Protocol Stop: 10/14/17 08:00 Last Admin: 10/13/17 14:56 Dose: 30 mg Ondansetron HCl (Zofran) Confirm Administered Dose 4 mg .ROUTE .STK-MED ONE Stop: 10/13/17 11:36 Oxycodone HCl (Oxycodone) 5 - 10 mg PO Q4H PRN PRN Reason: Pain Stop: 10/14/17 08:00 Propofol (Diprivan 20 Ml) Confirm Administered Dose 400 mg .ROUTE .STK-MED ONE Stop: 10/13/17 11:35 Scopolamine (Transderm-Scop) 1.5 mg TRDERM ONARRIVE [facility] Last Admin: 10/13/17 09:56 Dose: 1.5 mg Tranexamic Acid (Cyklokapron) Confirm Administered Dose 4,000 mg .ROUTE .STK- MED ONE Stop: 10/13/17 07:17 - Exam Wound/Incisions: Healing Well General: Alert, Oriented Neurological: No New Focal Deficit Psy/Mental Status: Alert, Normal Affect, Normal Mood Physical Findings Comment:: Exam of the left lower extremity shows the dressing to be dry and intact. He has no calf tenderness. AT/EHL/gastroc 5/5. Sensation grossly intact. DP/PT pulses 2+. - Problem List Review Problem List Initiated/Reviewed/Updated: Yes - My Orders Last 24 Hours: Active Orders 24 hr Category Date Time Status Patient Status [ADT] Routine ADT 10/14/17 16:47 Ordered Blood Glucose Check, Bedside [] TIDAC Care 10/13/17 16:19 Active Communication Order [] ROUTINE Care 10/14/17 13:23 Active Remove Patiño Catheter [Urinary Catheter Removal] [] Care 10/14/17 09:43 Active Per Unit Routine BMP [BASIC METABOLIC PANEL,BMP] [CHEM] AM Lab 10/15/17 05:11 Ordered BMP [BASIC METABOLIC PANEL,BMP] [CHEM] AM Lab 10/16/17 05:11 Ordered HEMOGLOBIN/HEMATOCRIT,HH [HEME] DAILY Lab 10/15/17 06:00 Ordered HEMOGLOBIN/HEMATOCRIT,HH [HEME] DAILY Lab 10/16/17 06:00 Ordered Acetaminophen/oxyCODONE [Percocet 325-5 MG] Med 10/14/17 08:00 Active 1 - 2 tab PO Q4H PRN Aspirin Med 10/14/17 09:00 Active 325 mg PO BID Docusate Sodium [Colace] Med 10/13/17 21:00 Active 100 mg PO BID Escitalopram [Lexapro] Med 10/14/17 09:00 Active 20 mg PO DAILY Famotidine [Pepcid] Med 10/14/17 09:00 Active 40 mg PO DAILY Insulin Aspart [NovoLOG] Med 10/13/17 17:00 Active See Protocol SUBCUT TIDAC Lisinopril [Prinivil] Med 10/14/17 09:00 Active 20 mg PO DAILY Morphine Med 10/14/17 08:00 Active 1 - 3 mg IVPUSH Q3H PRN Sodium Chloride 0.9% [Saline Flush] Med 10/14/17 09:43 Active 10 ml FLUSH ASDIRECTED PRN Sodium Chloride 0.9% [Saline Flush] Med 10/14/17 09:43 Active 2.5 ml FLUSH ASDIRECTED PRN Tamsulosin [Flomax] Med 10/14/17 09:00 Active 0.4 mg PO DAILY Tolterodine [Detrol LA 24 Hr] Med 10/14/17 09:00 Active 4 mg PO DAILY atorvaSTATin [Lipitor] Med 10/13/17 21:00 Active 40 mg PO BEDTIME oxyCODONE ER [OxyCONTIN] Med 10/13/17 21:00 Active 10 mg PO Q12HR Convert IV to Saline Lock [OM.PC] Routine Ot 10/14/17 09:43 Ordered Peripheral IV Discontinue [OM.PC] Routine Oth 10/14/17 09:42 Ordered Medication Orders Al Hydroxide/Mg Hydroxide (Mag-Al Plus) 30 ml PO Q4H PRN PRN Reason: indigestion Aspirin (Aspirin) 325 mg PO BID [facility] Last Admin: 10/14/17 09:00 Dose: 325 mg Atorvastatin Calcium (Lipitor) 40 mg PO BEDTIME [facility] Last Admin: 10/13/17 20:30 Dose: 40 mg Bisacodyl (Dulcolax) 10 mg RECTAL DAILY PRN PRN Reason: Constipation Diphenhydramine HCl (Benadryl) 25 - 50 mg PO Q6H PRN PRN Reason: Itching Docusate Sodium (Colace) 100 mg PO BID [facility] Last Admin: 10/14/17 09:00 Dose: 100 mg Admin: 10/13/17 20:29 Dose: 100 mg Escitalopram Oxalate (Lexapro) 20 mg PO DAILY [facility] Last Admin: 10/14/17 09:00 Dose: 20 mg Famotidine (Pepcid) 40 mg IVPUSH ONARRIVE [facility] Last Admin: 10/13/17 09:58 Dose: 40 mg Famotidine (Pepcid) 40 mg PO DAILY [facility] Last Admin: 10/14/17 09:00 Dose: 40 mg Acetaminophen 1,000 mg/ Premix 100 mls @ 400 mls/hr IV ONARRIVE [facility] Last Admin: 10/13/17 10:05 Dose: 400 mls/hr Cefazolin Sodium/Dextrose 2 gm (/ Premix) 50 mls @ 100 mls/hr IV ONCALL [facility] Ropivacaine 49.25 ml/Ketorolac Tromethamine 30 mg/Epinephrine HCl 0.5 mg/ Clonidine HCl 80 mcg/ Sodium Chloride 100 mls @ 50 mls/sec INJECT ASDIRECTED [facility] Lactated Ringer's (Ringers, Lactated) 1,000 mls @ 100 mls/hr IV ASDIRECTED [facility] Last Admin: 10/13/17 18:29 Dose: 100 mls/hr Infusion: 10/13/17 18:29 Dose: 100 mls/hr Admin: 10/13/17 09:54 Dose: 100 mls/hr Tranexamic Acid 4,000 mg/ (Sodium Chloride) 140 mls @ 600 mls/hr IV ASDIRECTED [facility] Insulin Aspart (Novolog) 0 unit SUBCUT TIDAC [facility]; Protocol Last Admin: 10/14/17 12:00 Dose: Not Given Admin: 10/14/17 07:30 Dose: Not Given Admin: 10/13/17 17:11 Dose: Not Given Ketorolac Tromethamine (Toradol) 30 mg IVPUSH ONARRIVE [facility] Last Admin: 10/13/17 09:59 Dose: 30 mg Lisinopril (Prinivil) 20 mg PO DAILY [facility] Last Admin: 10/14/17 09:00 Dose: 20 mg Morphine Sulfate (Morphine) 1 - 3 mg IVPUSH Q3H PRN PRN Reason: Pain Ondansetron HCl (Zofran) 4 mg IV Q6HR PRN PRN Reason: NAUSEA/VOMITING Oxycodone HCl (Oxycontin) 20 mg PO ONARRIVE [facility] Oxycodone HCl (Oxycontin) 10 mg PO ONARRIVE [facility] Last Admin: 10/13/17 10:04 Dose: 10 mg Oxycodone HCl (Oxycontin) 10 mg PO Q12HR [facility] Last Admin: 10/14/17 10:46 Dose: 10 mg Admin: 10/13/17 20:29 Dose: 10 mg Oxycodone/Acetaminophen (Percocet 325-5 Mg) 1 - 2 tab PO Q4H PRN PRN Reason: Pain Sodium Chloride (Saline Flush) 10 ml FLUSH ASDIRECTED PRN PRN Reason: Keep Vein Open Sodium Chloride (Saline Flush) 2.5 ml FLUSH ASDIRECTED PRN PRN Reason: Keep Vein Open Tamsulosin HCl (Flomax) 0.4 mg PO DAILY [facility] Last Admin: 10/14/17 09:00 Dose: 0.4 mg Tolterodine Tartrate (Detrol La 24 Hr) 4 mg PO DAILY [facility] Last Admin: 10/14/17 09:00 Dose: 4 mg - Plan Plan (Free Text/Narrative):: 1. hgb stable 2. continue to increase activity as tolerated--slow with PT this am, will benefit from additional inpatient therapy tomorrow 3. pain controlled, IV and po meds for management 4. ASA for DVT prophylaxis 5. appreciate hospitalist management of medical comorbidities 6. possible discharge home tomorrow
[2017-10-14] MEDS ORDERED: atorvaSTATin 40 MG Tab PO SCH (21:00)
[2017-10-14] MEDS: Aspirin 325 MG Tab PO SCH (21:28)
[2017-10-15] MEDS ORDERED: Acetaminophen/oxyCODONE 325-5 MG Tab PO PRN (03:30)
[2017-10-15 06:20] LABS: CHLORIDE,CL 104 mmol/L (98-107); SODIUM,NA 140 mmol/L (136-148)
[2017-10-15] MEDS: Insulin Aspart 100 Units/ML 3 ML Pen SUBCUT SCH (06:54)
[2017-10-15] MEDS: Docusate Sodium 100 MG Cap PO SCH (08:41)
[2017-10-15] MEDS: Escitalopram 10 MG Tab PO SCH (08:42)
[2017-10-15] MEDS: oxyCODONE ER 10 MG TAB.ER PO SCH (08:42)
[2017-10-15] MEDS: Famotidine 20 MG Tab PO SCH (08:42)
[2017-10-15] MEDS: Tamsulosin 0.4 MG Cap.ER PO SCH (08:42)
[2017-10-15] MEDS: Aspirin 325 MG Tab PO SCH (08:42)
[2017-10-15] MEDS: Tolterodine 2 MG Cap.ER PO SCH (08:43)
[2017-10-15] MEDS: Lisinopril 10 MG Tab PO SCH (08:43)
--- NOTE | 2017-10-15 09:00 | PCM.SURGPN ---
- General Info Date of Service: 10/15/17 Date of Surgery/Procedure: 10/13/17 POD#: 2 Functional Status: Reports: Pain Controlled, Tolerating Diet, Ambulating, Urinating - Review of Systems General: Reports: No Symptoms Musculoskeletal: Reports: Leg Pain Systems Review Comment:: pt up to chair for breakfast tolerating PO intake well pain controlled with PO pain medications nursing/hospitalist feels he is still slightly confused - tries to ambulate independently without walker no specific concerns from the patient today would like d/ch to home after therapy - Patient Data Vitals - Most Recent: Last Vital Signs Temp 99 F 10/15/17 04:00 Pulse 83 10/15/17 04:00 Resp 18 10/15/17 04:00 BP 123/59 L 10/15/17 08:43 Pulse Ox 96 10/15/17 04:00 Weight - Most Recent: 98.883 kg I&O - Last 24 Hours: Intake & Output 10/14/17 10/15/17 10/15/17 22:59 06:59 14:59 Intake Total 500 400 Output Total 400 500 Balance 100 -100 Lab Results Last 24 Hrs: Laboratory Results - last 24 hr 10/14/17 10/14/17 10/14/17 Range/Units 06:09 06:22 06:25 Hgb 12.3 L (13.0-17.0) g/dL Hct 38.2 (38.0-50.0) % Sodium (136-148) mmol/L Potassium (3.5-5.1) mmol/L Chloride (98-107) mmol/L Carbon Dioxide (21.0-32.0) mmol/L BUN (7.0-18.0) mg/dL Creatinine (0.8-1.3) mg/dL Est Cr Clr Drug Dosing mL/min Estimated GFR (MDRD) ml/min Glucose (74-106) mg/dL POC Glucose 183 H 114 H (60-110) mg/dL Calcium (8.5-10.1) mg/dL 10/14/17 10/14/17 10/14/17 Range/Units 06:25 11:19 16:06 Hgb (13.0-17.0) g/dL Hct (38.0-50.0) % Sodium 140 (136-148) mmol/L Potassium 4.4 (3.5-5.1) mmol/L Chloride 105 (98-107) mmol/L Carbon Dioxide 30.5 (21.0-32.0) mmol/L BUN 21 H (7.0-18.0) mg/dL Creatinine 0.8 (0.8-1.3) mg/dL Est Cr Clr Drug Dosing 88.38 mL/min Estimated GFR (MDRD) > 60.0 ml/min Glucose 103 (74-106) mg/dL POC Glucose 144 H 129 H (60-110) mg/dL Calcium 8.2 L (8.5-10.1) mg/dL 10/14/17 10/15/17 10/15/17 Range/Units 22:31 05:40 05:40 Hgb 11.3 L (13.0-17.0) g/dL Hct 34.6 L (38.0-50.0) % Sodium 140 (136-148) mmol/L Potassium 3.9 (3.5-5.1) mmol/L Chloride 104 (98-107) mmol/L Carbon Dioxide 30.1 (21.0-32.0) mmol/L BUN 18 (7.0-18.0) mg/dL Creatinine 0.8 (0.8-1.3) mg/dL Est Cr Clr Drug Dosing 88.38 mL/min Estimated GFR (MDRD) > 60.0 ml/min Glucose 115 H (74-106) mg/dL POC Glucose 116 H (60-110) mg/dL Calcium 8.5 (8.5-10.1) mg/dL Med Orders - Current: Current Medications Al Hydroxide/Mg Hydroxide (Mag-Al Plus) 30 ml PO Q4H PRN PRN Reason: indigestion Aspirin (Aspirin) 325 mg PO BID [facility] Last Admin: 10/15/17 08:42 Dose: 325 mg Atorvastatin Calcium (Lipitor) 40 mg PO BEDTIME [facility] Last Admin: 10/14/17 21:30 Dose: 40 mg Bisacodyl (Dulcolax) 10 mg RECTAL DAILY PRN PRN Reason: Constipation Diphenhydramine HCl (Benadryl) 25 - 50 mg PO Q6H PRN PRN Reason: Itching Docusate Sodium (Colace) 100 mg PO BID [facility] Last Admin: 10/15/17 08:41 Dose: 100 mg Escitalopram Oxalate (Lexapro) 20 mg PO DAILY [facility] Last Admin: 10/15/17 08:42 Dose: 20 mg Famotidine (Pepcid) 40 mg IVPUSH ONARRIVE [facility] Last Admin: 10/13/17 09:58 Dose: 40 mg Famotidine (Pepcid) 40 mg PO DAILY [facility] Last Admin: 10/15/17 08:42 Dose: 40 mg Acetaminophen 1,000 mg/ Premix 100 mls @ 400 mls/hr IV ONARRIVE [facility] Last Admin: 10/13/17 10:05 Dose: 400 mls/hr Cefazolin Sodium/Dextrose 2 gm (/ Premix) 50 mls @ 100 mls/hr IV ONCALL [facility] Ropivacaine 49.25 ml/Ketorolac Tromethamine 30 mg/Epinephrine HCl 0.5 mg/ Clonidine HCl 80 mcg/ Sodium Chloride 100 mls @ 50 mls/sec INJECT ASDIRECTED [facility] Lactated Ringer's (Ringers, Lactated) 1,000 mls @ 100 mls/hr IV ASDIRECTED [facility] Last Admin: 10/13/17 18:29 Dose: 100 mls/hr Tranexamic Acid 4,000 mg/ (Sodium Chloride) 140 mls @ 600 mls/hr IV ASDIRECTED [facility] Insulin Aspart (Novolog) 0 unit SUBCUT TIDAC [facility]; Protocol Last Admin: 10/15/17 06:54 Dose: Not Given Ketorolac Tromethamine (Toradol) 30 mg IVPUSH ONARRIVE [facility] Last Admin: 10/13/17 09:59 Dose: 30 mg Lisinopril (Prinivil) 20 mg PO DAILY [facility] Last Admin: 10/15/17 08:43 Dose: 20 mg Morphine Sulfate (Morphine) 1 - 3 mg IVPUSH Q3H PRN PRN Reason: Pain Ondansetron HCl (Zofran) 4 mg IV Q6HR PRN PRN Reason: NAUSEA/VOMITING Oxycodone HCl (Oxycontin) 20 mg PO ONARRIVE [facility] Oxycodone HCl (Oxycontin) 10 mg PO ONARRIVE [facility] Last Admin: 10/14/17 21:28 Dose: 10 mg Oxycodone/Acetaminophen (Percocet 325-5 Mg) 1 - 2 tab PO Q4H PRN PRN Reason: Pain Last Admin: 10/15/17 03:36 Dose: 2 tab Sodium Chloride (Saline Flush) 10 ml FLUSH ASDIRECTED PRN PRN Reason: Keep Vein Open Sodium Chloride (Saline Flush) 2.5 ml FLUSH ASDIRECTED PRN PRN Reason: Keep Vein Open Tamsulosin HCl (Flomax) 0.4 mg PO DAILY [facility] Last Admin: 10/15/17 08:42 Dose: 0.4 mg Tolterodine Tartrate (Detrol La 24 Hr) 4 mg PO DAILY [facility] Last Admin: 10/15/17 08:43 Dose: 4 mg Discontinued Medications Aspirin (Aspirin) 325 mg PO BID [facility] Last Admin: 10/14/17 09:00 Dose: 325 mg Atorvastatin Calcium (Lipitor) 40 mg PO BEDTIME [facility] Last Admin: 10/13/17 20:30 Dose: 40 mg Cefazolin Sodium/Dextrose (Ancef) Confirm Administered Dose 2 gm IV .STK-MED ONE Stop: 10/13/17 11:36 Celecoxib (Celebrex) 200 mg PO BID [facility] Docusate Sodium (Colace) 100 mg PO BID [facility] Last Admin: 10/14/17 09:00 Dose: 100 mg Ephedrine Sulfate (Ephedrine Sulfate) Confirm Administered Dose 50 mg .ROUTE .STK-MED ONE Stop: 10/13/17 11:36 Fentanyl (Sublimaze) Confirm Administered Dose 100 mcg .ROUTE .STK-MED ONE Stop: 10/13/17 11:36 Fentanyl (Sublimaze) 50 mcg IVPUSH Q5M PRN PRN Reason: Pain (severe 7-10) Stop: 10/14/17 14:00 Acetaminophen 1,000 mg/ Premix 100 mls @ 400 mls/hr IV Q6H [facility] Stop: 10/14/17 04:14 Last Admin: 10/14/17 12:44 Dose: Not Given Cefazolin Sodium/Dextrose 2 gm (/ Premix) 50 mls @ 100 mls/hr IV Q8H [facility] Stop: 10/14/17 04:59 Last Admin: 10/14/17 12:44 Dose: Not Given Ketorolac Tromethamine (Toradol) Confirm Administered Dose 30 mg .ROUTE .STK- MED ONE Stop: 10/13/17 11:36 Ketorolac Tromethamine (Toradol) 15 mg IVPUSH Q6H [facility] Stop: 10/14/17 04:00 Lidocaine (Xylocaine-Mpf 2%) Confirm Administered Dose 10 ml .ROUTE .STK-MED ONE Stop: 10/13/17 11:35 Metformin HCl (Glucophage Xr) 500 mg PO BID [facility] Midazolam HCl (Versed 1 Mg/Ml) Confirm Administered Dose 2 mg .ROUTE .STK-MED ONE Stop: 10/13/17 11:36 Morphine Sulfate (Morphine Diffusion Furnace Operator 30 Mg In 30 Ml) 30 mg IV ASDIRECTED [facility]; Protocol Stop: 10/14/17 08:00 Last Admin: 10/13/17 14:56 Dose: 30 mg Ondansetron HCl (Zofran) Confirm Administered Dose 4 mg .ROUTE .STK-MED ONE Stop: 10/13/17 11:36 Oxycodone HCl (Oxycodone) 5 - 10 mg PO Q4H PRN PRN Reason: Pain Stop: 10/14/17 08:00 Oxycodone HCl (Oxycontin) 10 mg PO Q12HR [facility] Last Admin: 10/14/17 10:46 Dose: 10 mg Oxycodone HCl (Oxycontin) 10 mg PO Q12HR [facility] Last Admin: 10/15/17 08:42 Dose: 10 mg Oxycodone/Acetaminophen (Percocet 325-5 Mg) 1 - 2 tab PO Q4H PRN PRN Reason: Pain Last Admin: 10/14/17 16:59 Dose: 1 tab Propofol (Diprivan 20 Ml) Confirm Administered Dose 400 mg .ROUTE .STK-MED ONE Stop: 10/13/17 11:35 Scopolamine (Transderm-Scop) 1.5 mg TRDER ONARRIVE [facility] Last Admin: 10/13/17 09:56 Dose: 1.5 mg Tranexamic Acid (Cyklokapron) Confirm Administered Dose 4,000 mg .ROUTE .STK- MED ONE Stop: 10/13/17 07:17 - Exam Wound/Incisions: Dressing Dry and Intact. No: Drainage, Erythema General: Alert, Oriented Cardiovascular: Regular Rate, Regular Rhythm Extremities: Other (exam LLE - at/ehl/gastroc 5/5, dp 2+, sensation intact distally) Physical Findings Comment:: vss, afeb o2 sat mid 90s on 2L NC hgb 11.3 - Problem List Review Problem List Initiated/Reviewed/Updated: Yes - My Orders Last 24 Hours: Active Orders 24 hr Category Date Time Status Patient Status [ADT] Routine ADT 10/14/17 16:47 Active Communication Order [RC] ROUTINE Care 10/14/17 13:23 Active Remove Patiño Catheter [Urinary Catheter Removal] [RC] Care 10/14/17 09:43 Active Per Unit Routine BMP [BASIC METABOLIC PANEL,BMP] [CHEM] AM Lab 10/16/17 05:11 Ordered HEMOGLOBIN/HEMATOCRIT,HH [HEME] DAILY Lab 10/16/17 06:00 Ordered Acetaminophen/oxyCODONE [Percocet 325-5 MG] Med 10/15/17 03:30 Active 1 - 2 tab PO Q4H PRN Aspirin Med 10/14/17 21:00 Active 325 mg PO BID Docusate Sodium [Colace] Med 10/14/17 21:00 Active 100 mg PO BID Escitalopram [Lexapro] Med 10/14/17 09:00 Active 20 mg PO DAILY Famotidine [Pepcid] Med 10/14/17 09:00 Active 40 mg PO DAILY Lisinopril [Prinivil] Med 10/14/17 09:00 Active 20 mg PO DAILY Morphine Med 10/14/17 08:00 Active 1 - 3 mg IVPUSH Q3H PRN Sodium Chloride 0.9% [Saline Flush] Med 10/14/17 09:43 Active 10 ml FLUSH ASDIRECTED PRN Sodium Chloride 0.9% [Saline Flush] Med 10/14/17 09:43 Active 2.5 ml FLUSH ASDIRECTED PRN Tamsulosin [Flomax] Med 10/14/17 09:00 Active 0.4 mg PO DAILY Tolterodine [Detrol LA 24 Hr] Med 10/14/17 09:00 Active 4 mg PO DAILY atorvaSTATin [Lipitor] Med 10/14/17 21:00 Active 40 mg PO BEDTIME Convert IV to Saline Lock [OM.PC] Routine Oth 10/14/17 09:43 Ordered Peripheral IV Discontinue [OM.PC] Routine Oth 10/14/17 09:42 Ordered Medication Orders Al Hydroxide/Mg Hydroxide (Mag-Al Plus) 30 ml PO Q4H PRN PRN Reason: indigestion Aspirin (Aspirin) 325 mg PO BID [facility] Last Admin: 10/15/17 08:42 Dose: 325 mg Admin: 10/14/17 21:28 Dose: 325 mg Atorvastatin Calcium (Lipitor) 40 mg PO BEDTIME [facility] Last Admin: 10/14/17 21:30 Dose: 40 mg Bisacodyl (Dulcolax) 10 mg RECTAL DAILY PRN PRN Reason: Constipation Diphenhydramine HCl (Benadryl) 25 - 50 mg PO Q6H PRN PRN Reason: Itching Docusate Sodium (Colace) 100 mg PO BID [facility] Last Admin: 10/15/17 08:41 Dose: 100 mg Admin: 10/14/17 21:28 Dose: 100 mg Escitalopram Oxalate (Lexapro) 20 mg PO DAILY [facility] Last Admin: 10/15/17 08:42 Dose: 20 mg Admin: 10/14/17 09:00 Dose: 20 mg Famotidine (Pepcid) 40 mg IVPUSH ONARRIVE [facility] Last Admin: 10/13/17 09:58 Dose: 40 mg Famotidine (Pepcid) 40 mg PO DAILY [facility] Last Admin: 10/15/17 08:42 Dose: 40 mg Admin: 10/14/17 09:00 Dose: 40 mg Acetaminophen 1,000 mg/ Premix 100 mls @ 400 mls/hr IV ONARRIVE [facility] Last Admin: 10/13/17 10:05 Dose: 400 mls/hr Cefazolin Sodium/Dextrose 2 gm (/ Premix) 50 mls @ 100 mls/hr IV ONCALL [facility] Ropivacaine 49.25 ml/Ketorolac Tromethamine 30 mg/Epinephrine HCl 0.5 mg/ Clonidine HCl 80 mcg/ Sodium Chloride 100 mls @ 50 mls/sec INJECT ASDIRECTED [facility] Lactated Ringer's (Ringers, Lactated) 1,000 mls @ 100 mls/hr IV ASDIRECTED [facility] Last Admin: 10/13/17 18:29 Dose: 100 mls/hr Infusion: 10/13/17 18:29 Dose: 100 mls/hr Admin: 10/13/17 09:54 Dose: 100 mls/hr Tranexamic Acid 4,000 mg/ (Sodium Chloride) 140 mls @ 600 mls/hr IV ASDIRECTED [facility] Insulin Aspart (Novolog) 0 unit SUBCUT TIDAC [facility]; Protocol Last Admin: 10/15/17 06:54 Dose: Not Given Admin: 10/14/17 16:56 Dose: Not Given Admin: 10/14/17 12:00 Dose: Not Given Admin: 10/14/17 07:30 Dose: Not Given Admin: 10/13/17 17:11 Dose: Not Given Ketorolac Tromethamine (Toradol) 30 mg IVPUSH ONARRIVE [facility] Last Admin: 10/13/17 09:59 Dose: 30 mg Lisinopril (Prinivil) 20 mg PO DAILY [facility] Last Admin: 10/15/17 08:43 Dose: 20 mg Admin: 10/14/17 09:00 Dose: 20 mg Morphine Sulfate (Morphine) 1 - 3 mg IVPUSH Q3H PRN PRN Reason: Pain Ondansetron HCl (Zofran) 4 mg IV Q6HR PRN PRN Reason: NAUSEA/VOMITING Oxycodone HCl (Oxycontin) 20 mg PO ONARRIVE [facility] Oxycodone HCl (Oxycontin) 10 mg PO ONARRIVE [facility] Last Admin: 10/14/17 21:28 Dose: 10 mg Admin: 10/13/17 10:04 Dose: 10 mg Oxycodone/Acetaminophen (Percocet 325-5 Mg) 1 - 2 tab PO Q4H PRN PRN Reason: Pain Last Admin: 10/15/17 03:36 Dose: 2 tab Sodium Chloride (Saline Flush) 10 ml FLUSH ASDIRECTED PRN PRN Reason: Keep Vein Open Sodium Chloride (Saline Flush) 2.5 ml FLUSH ASDIRECTED PRN PRN Reason: Keep Vein Open Tamsulosin HCl (Flomax) 0.4 mg PO DAILY [facility] Last Admin: 10/15/17 08:42 Dose: 0.4 mg Admin: 10/14/17 09:00 Dose: 0.4 mg Tolterodine Tartrate (Detrol La 24 Hr) 4 mg PO DAILY [facility] Last Admin: 10/15/17 08:43 Dose: 4 mg Admin: 10/14/17 09:00 Dose: 4 mg - Assessment Assessment (Free Text/Narrative):: POD#2 L TKA acute posthemorrhagic anemia - Plan Plan (Free Text/Narrative):: d/c oxycontin - hopefully will alleviate slight confusion and increase o2 sats continue PT and pain management if able to complete PT, pain is controlled, and tolerating diet, will consider d /ch to home this afternoon dressing changed
--- NOTE | 2017-10-15 09:14 | PCM.CONSN ---
- General Info Date of Service: 10/15/17 Admission Dx/Problem (Free Text): Admission Diagnosis/Problem Admission Diagnosis/Problem Replacement of total knee joint Subjective Update: Sitting up in the chair, reports he is doing well today. No chest pain or SOB. Functional Status: Reports: Pain Controlled, Tolerating Diet, Ambulating, Urinating - Review of Systems Pulmonary: Reports: No Symptoms. Denies: Shortness of Breath Cardiovascular: Reports: No Symptoms. Denies: Chest Pain Gastrointestinal: Reports: No Symptoms. Denies: Abdominal Pain, Nausea, Vomiting Musculoskeletal: Reports: No Symptoms Skin: Reports: No Symptoms Neurological: Reports: No Symptoms Psychiatric: Reports: No Symptoms - Patient Data Vitals - Most Recent: Last Vital Signs Temp 97.0 F 10/15/17 08:00 Pulse 88 10/15/17 08:00 Resp 16 10/15/17 08:00 BP 123/59 L 10/15/17 08:43 Pulse Ox 93 L 10/15/17 08:00 Weight - Most Recent: 98.883 kg I&O - Last 24 Hours: Intake & Output 10/14/17 10/15/17 10/15/17 22:59 06:59 14:59 Intake Total 500 400 Output Total 400 500 Balance 100 -100 Lab Results Last 24 Hours: Laboratory Results - last 24 hr 10/14/17 10/14/17 10/14/17 Range/Units 06:09 06:22 06:25 Hgb 12.3 L (13.0-17.0) g/dL Hct 38.2 (38.0-50.0) % Sodium (136-148) mmol/L Potassium (3.5-5.1) mmol/L Chloride (98-107) mmol/L Carbon Dioxide (21.0-32.0) mmol/L BUN (7.0-18.0) mg/dL Creatinine (0.8-1.3) mg/dL Est Cr Clr Drug Dosing mL/min Estimated GFR (MDRD) ml/min Glucose (74-106) mg/dL POC Glucose 183 H 114 H (60-110) mg/dL Calcium (8.5-10.1) mg/dL 10/14/17 10/14/17 10/14/17 Range/Units 06:25 11:19 16:06 Hgb (13.0-17.0) g/dL Hct (38.0-50.0) % Sodium 140 (136-148) mmol/L Potassium 4.4 (3.5-5.1) mmol/L Chloride 105 (98-107) mmol/L Carbon Dioxide 30.5 (21.0-32.0) mmol/L BUN 21 H (7.0-18.0) mg/dL Creatinine 0.8 (0.8-1.3) mg/dL Est Cr Clr Drug Dosing 88.38 mL/min Estimated GFR (MDRD) > 60.0 ml/min Glucose 103 (74-106) mg/dL POC Glucose 144 H 129 H (60-110) mg/dL Calcium 8.2 L (8.5-10.1) mg/dL 10/14/17 10/15/17 10/15/17 Range/Units 22:31 05:40 05:40 Hgb 11.3 L (13.0-17.0) g/dL Hct 34.6 L (38.0-50.0) % Sodium 140 (136-148) mmol/L Potassium 3.9 (3.5-5.1) mmol/L Chloride 104 (98-107) mmol/L Carbon Dioxide 30.1 (21.0-32.0) mmol/L BUN 18 (7.0-18.0) mg/dL Creatinine 0.8 (0.8-1.3) mg/dL Est Cr Clr Drug Dosing 88.38 mL/min Estimated GFR (MDRD) > 60.0 ml/min Glucose 115 H (74-106) mg/dL POC Glucose 116 H (60-110) mg/dL Calcium 8.5 (8.5-10.1) mg/dL Med Orders - Current: Current Medications Al Hydroxide/Mg Hydroxide (Mag-Al Plus) 30 ml PO Q4H PRN PRN Reason: indigestion Aspirin (Aspirin) 325 mg PO BID [facility] Last Admin: 10/15/17 08:42 Dose: 325 mg Atorvastatin Calcium (Lipitor) 40 mg PO BEDTIME [facility] Last Admin: 10/14/17 21:30 Dose: 40 mg Bisacodyl (Dulcolax) 10 mg RECTAL DAILY PRN PRN Reason: Constipation Diphenhydramine HCl (Benadryl) 25 - 50 mg PO Q6H PRN PRN Reason: Itching Docusate Sodium (Colace) 100 mg PO BID [facility] Last Admin: 10/15/17 08:41 Dose: 100 mg Escitalopram Oxalate (Lexapro) 20 mg PO DAILY [facility] Last Admin: 10/15/17 08:42 Dose: 20 mg Famotidine (Pepcid) 40 mg IVPUSH ONARRIVE [facility] Last Admin: 10/13/17 09:58 Dose: 40 mg Famotidine (Pepcid) 40 mg PO DAILY [facility] Last Admin: 10/15/17 08:42 Dose: 40 mg Acetaminophen 1,000 mg/ Premix 100 mls @ 400 mls/hr IV ONARRIVE [facility] Last Admin: 10/13/17 10:05 Dose: 400 mls/hr Cefazolin Sodium/Dextrose 2 gm (/ Premix) 50 mls @ 100 mls/hr IV ONCALL [facility] Ropivacaine 49.25 ml/Ketorolac Tromethamine 30 mg/Epinephrine HCl 0.5 mg/ Clonidine HCl 80 mcg/ Sodium Chloride 100 mls @ 50 mls/sec INJECT ASDIRECTED [facility] Lactated Ringer's (Ringers, Lactated) 1,000 mls @ 100 mls/hr IV ASDIRECTED [facility] Last Admin: 10/13/17 18:29 Dose: 100 mls/hr Tranexamic Acid 4,000 mg/ (Sodium Chloride) 140 mls @ 600 mls/hr IV ASDIRECTED [facility] Insulin Aspart (Novolog) 0 unit SUBCUT TIDAC [facility]; Protocol Last Admin: 10/15/17 06:54 Dose: Not Given Ketorolac Tromethamine (Toradol) 30 mg IVPUSH ONARRIVE [facility] Last Admin: 10/13/17 09:59 Dose: 30 mg Lisinopril (Prinivil) 20 mg PO DAILY [facility] Last Admin: 10/15/17 08:43 Dose: 20 mg Morphine Sulfate (Morphine) 1 - 3 mg IVPUSH Q3H PRN PRN Reason: Pain Ondansetron HCl (Zofran) 4 mg IV Q6HR PRN PRN Reason: NAUSEA/VOMITING Oxycodone HCl (Oxycontin) 20 mg PO ONARRIVE [facility] Oxycodone HCl (Oxycontin) 10 mg PO ONARRIVE [facility] Last Admin: 10/14/17 21:28 Dose: 10 mg Oxycodone/Acetaminophen (Percocet 325-5 Mg) 1 - 2 tab PO Q4H PRN PRN Reason: Pain Last Admin: 10/15/17 03:36 Dose: 2 tab Sodium Chloride (Saline Flush) 10 ml FLUSH ASDIRECTED PRN PRN Reason: Keep Vein Open Sodium Chloride (Saline Flush) 2.5 ml FLUSH ASDIRECTED PRN PRN Reason: Keep Vein Open Tamsulosin HCl (Flomax) 0.4 mg PO DAILY [facility] Last Admin: 10/15/17 08:42 Dose: 0.4 mg Tolterodine Tartrate (Detrol La 24 Hr) 4 mg PO DAILY [facility] Last Admin: 10/15/17 08:43 Dose: 4 mg Discontinued Medications Aspirin (Aspirin) 325 mg PO BID [facility] Last Admin: 10/14/17 09:00 Dose: 325 mg Atorvastatin Calcium (Lipitor) 40 mg PO BEDTIME [facility] Last Admin: 10/13/17 20:30 Dose: 40 mg Cefazolin Sodium/Dextrose (Ancef) Confirm Administered Dose 2 gm IV .STK-MED ONE Stop: 10/13/17 11:36 Celecoxib (Celebrex) 200 mg PO BID [facility] Docusate Sodium (Colace) 100 mg PO BID [facility] Last Admin: 10/14/17 09:00 Dose: 100 mg Ephedrine Sulfate (Ephedrine Sulfate) Confirm Administered Dose 50 mg .ROUTE .STK-MED ONE Stop: 10/13/17 11:36 Fentanyl (Sublimaze) Confirm Administered Dose 100 mcg .ROUTE .STK-MED ONE Stop: 10/13/17 11:36 Fentanyl (Sublimaze) 50 mcg IVPUSH Q5M PRN PRN Reason: Pain (severe 7-10) Stop: 10/14/17 14:00 Acetaminophen 1,000 mg/ Premix 100 mls @ 400 mls/hr IV Q6H [facility] Stop: 10/14/17 04:14 Last Admin: 10/14/17 12:44 Dose: Not Given Cefazolin Sodium/Dextrose 2 gm (/ Premix) 50 mls @ 100 mls/hr IV Q8H [facility] Stop: 10/14/17 04:59 Last Admin: 10/14/17 12:44 Dose: Not Given Ketorolac Tromethamine (Toradol) Confirm Administered Dose 30 mg .ROUTE .STK- MED ONE Stop: 10/13/17 11:36 Ketorolac Tromethamine (Toradol) 15 mg IVPUSH Q6H [facility] Stop: 10/14/17 04:00 Lidocaine (Xylocaine-Mpf 2%) Confirm Administered Dose 10 ml .ROUTE .STK-MED ONE Stop: 10/13/17 11:35 Metformin HCl (Glucophage Xr) 500 mg PO BID [facility] Midazolam HCl (Versed 1 Mg/Ml) Confirm Administered Dose 2 mg .ROUTE .STK-MED ONE Stop: 10/13/17 11:36 Morphine Sulfate (Morphine Hand Cutter 30 Mg In 30 Ml) 30 mg IV ASDIRECTED [facility]; Protocol Stop: 10/14/17 08:00 Last Admin: 10/13/17 14:56 Dose: 30 mg Ondansetron HCl (Zofran) Confirm Administered Dose 4 mg .ROUTE .STK-MED ONE Stop: 10/13/17 11:36 Oxycodone HCl (Oxycodone) 5 - 10 mg PO Q4H PRN PRN Reason: Pain Stop: 10/14/17 08:00 Oxycodone HCl (Oxycontin) 10 mg PO Q12HR [facility] Last Admin: 10/14/17 10:46 Dose: 10 mg Oxycodone HCl (Oxycontin) 10 mg PO Q12HR [facility] Last Admin: 10/15/17 08:42 Dose: 10 mg Oxycodone/Acetaminophen (Percocet 325-5 Mg) 1 - 2 tab PO Q4H PRN PRN Reason: Pain Last Admin: 10/14/17 16:59 Dose: 1 tab Propofol (Diprivan 20 Ml) Confirm Administered Dose 400 mg .ROUTE .STK-MED ONE Stop: 10/13/17 11:35 Scopolamine (Transderm-Scop) 1.5 mg TRDERM ONARRIVE [facility] Last Admin: 10/13/17 09:56 Dose: 1.5 mg Tranexamic Acid (Cyklokapron) Confirm Administered Dose 4,000 mg .ROUTE .STK- MED ONE Stop: 10/13/17 07:17 - Exam Quality Assessment: Supplemental Oxygen, DVT Prophylaxis General: Alert, Oriented, Cooperative, No Acute Distress Neck: Supple Lungs: Clear to Auscultation, Normal Respiratory Effort Cardiovascular: Regular Rate, Regular Rhythm GI/Abdominal Exam: Normal Bowel Sounds, Soft, Non-Tender, No Organomegaly, No Distention, No Abnormal Bruit, No Mass, Pelvis Stable Extremities: Normal Inspection, Normal Range of Motion, Non-Tender, No Pedal Edema, Normal Capillary Refill Wound/Incisions: Dressing Dry and Intact (Aquacel dressing intact to L leg.) Neurological: Other (continued slight confusion today, improved from yesterday.) Psy/Mental Status: Alert, Normal Affect, Normal Mood Consult PN Assessment/Plan Procedures: Procedures ASSAY OF BLOOD/URIC ACID (07/02/16) COMPLETE CBC W/AUTO DIFF WBC (09/24/17) COMPREHEN METABOLIC PANEL (04/04/17) GLYCOSYLATED HEMOGLOBIN TEST (09/24/17) IIV4 VACC NO PRSV 0.5 ML IM (04/04/17) LIPID PANEL (04/04/17) METABOLIC PANEL TOTAL CA (09/24/17) MRI JNT OF LWR EXTRE W/O DYE (09/03/17) OFFICE/OUTPATIENT VISIT EST (09/24/17) OFFICE/OUTPATIENT VISIT EST (10/11/15) OFFICE/OUTPATIENT VISIT NEW (07/24/15) PPSV23 VACC 2 YRS+ SUBQ/IM (04/04/17) PROTHROMBIN TIME (09/24/17) RBC SED RATE AUTOMATED (07/02/16) ROUTINE VENIPUNCTURE (09/24/17) THER/PROPH/DIAG INJ SC/IM (04/16/16) UR ALBUMIN SEMIQUANTITATIVE (01/02/17) URINALYSIS AUTO W/SCOPE (09/24/17) X-RAY EXAM CHEST 2 VIEWS (09/24/17) X-RAY EXAM NECK SPINE 2-3 VW (02/06/17) X-RAY EXAM OF ANKLE (05/23/17) X-RAY EXAM OF KNEE 3 (09/26/16) X-RAY EXAM OF SHOULDER (02/06/17) (1) S/P total knee arthroplasty SNOMED Code(s): 4774325677324, 929890358, 8627463290487 Code(s): Z96.659 - PRESENCE OF UNSPECIFIED ARTIFICIAL KNEE JOINT Current Visit: Yes Qualifiers: Laterality: left Qualified Code(s): Z96.652 - Presence of left artificial knee joint (2) DM type 2 (diabetes mellitus, type 2) SNOMED Code(s): 02979522 Code(s): E11.9 - TYPE 2 DIABETES MELLITUS WITHOUT COMPLICATIONS Current Visit: Yes Qualifiers: Diabetes mellitus prison insulin use: without prison use Diabetes mellitus complication status: without complication Qualified Code(s): E11.9 - Type 2 diabetes mellitus without complications (3) HTN (hypertension) SNOMED Code(s): 18212086 Code(s): I10 - ESSENTIAL (PRIMARY) HYPERTENSION Current Visit: Yes Qualifiers: Hypertension type: essential hypertension Qualified Code(s): I10 - Essential (primary) hypertension (4) Dyslipidemia SNOMED Code(s): 153421791 Code(s): E78.5 - HYPERLIPIDEMIA, UNSPECIFIED Current Visit: Yes (5) BPH (benign prostatic hyperplasia) SNOMED Code(s): 511207980 Code(s): N40.0 - BENIGN PROSTATIC HYPERPLASIA WITHOUT LOWER URINRY TRACT SYMP Current Visit: Yes Qualifiers: Lower urinary tract symptom presence: symptoms absent Qualified Code(s): N40.0 - Benign prostatic hyperplasia without lower urinary tract symptoms (6) History of CVA (cerebrovascular accident) SNOMED Code(s): 888712023 Code(s): Z86.73 - PRSNL HX OF TIA (TIA), AND CEREB INFRC W/O RESID DEFICITS Current Visit: Yes (7) Depression SNOMED Code(s): 47435001 Code(s): F32.9 - MAJOR DEPRESSIVE DISORDER, SINGLE EPISODE, UNSPECIFIED Current Visit: Yes Qualifiers: Depression Type: unspecified Qualified Code(s): F32.9 - Major depressive disorder, single episode, unspecified Problem List Initiated/Reviewed/Updated: Yes My Orders Last 24 Hours: My Active Orders 10/14/17 13:23 Communication Order [RC] ROUTINE 10/16/17 05:11 BMP [BASIC METABOLIC PANEL,BMP] [CHEM] AM Plan: This 67 year old male admitted with L TKA has pmh of HTN, DM type 2, Hx CVA and BPH. Hospitalist service consulted due to comorbidities 1. S/P L TKA: Per Orthopedics. Slight confusion continues this morning. Ortho stopping Oxycontin. Will monitor. Scopalamine patch removed yesterday. RA sats still high 80s, 2 l NC at this time. LS clear, no cough. Encouraged IS use 10 x Q1hr. 2. DM Type 2: BS well controlled. Hold Metformin post-operatively. May restart upon discharge home. Novolog SSI low with TIDAC blood sugar checks. Last A1c 6.1. Monitor BMP daily. Patient and family ( and daughter) educated on holding Metformin during stay. 3. HTN: Stable, continue Lisinopril. 4. Hx CVA: Stable. Due to adverse cardiovascular thrombotic events will stop Celebrex and Toradol. Monitor during stay. 5. BPH: Stable on Flomax, continue this during stay. VTE prophylaxis: Would recommended when deemed appropriate by Ortho, currently on ASA BID.
--- NOTE | 2017-10-15 14:31 | PCM.SN ---
- Free Text/Narrative Note: pt would benefit from home health for the first few weeks s/p L TKA done 3 due to LLE pain/weakness/decreased mobility and history of R sided hemiplegia s/p CVA. He would require physical therapy 3-5 times per week for 2- 3 weeks along with nursing services for wound care for 2-3 weeks.
--- NOTE | 2017-10-16 11:00 | DISCH ---
DATE OF DISCHARGE: 10/15/2017 PRIMARY CARE PHYSICIAN: Tramaine Moran M.D. ADMITTING DIAGNOSIS: Degenerative joint disease, left knee, tricompartmental. OTHER MEDICAL DIAGNOSES: 1. Hypertension. 2. Benign prostatic hyperplasia. 3. Diabetes mellitus, type 2. 4. Hyperlipidemia. 5. History of cerebrovascular accident. 6. Anxiety/depression. DISCHARGE DIAGNOSES: 1. Degenerative joint disease, left knee, tricompartmental. 2. Hypertension. 3. Benign prostatic hyperplasia. 4. Diabetes mellitus, type 2. 5. Hyperlipidemia. 6. History of cerebrovascular accident. 7. Anxiety/depression. 8. Acute post hemorrhagic anemia. BRIEF HISTORY: Russell is a 67-year-old male, who has had progressive complaints of left knee pain. He has tried and failed conservative treatment. At that time, surgical treatment was recommended. On October 13, 2017, the patient underwent a left total knee arthroplasty using standard instrumentation done by Dr. Liset Love. This was under spinal anesthesia with sedation. Estimated blood loss was 50 milliliters. Tourniquet time was 61 minutes. There were no complications. Upon completion of the procedure, the patient was transferred to the PACU and subsequently to [facility] postoperative care. HOSPITAL COURSE: Postoperatively, the patient did well. He received two doses of antibiotics postoperatively for total of 24 hours of antibiotic coverage. Hospitalist Service followed him through his hospital stay. Physical Therapy followed him through his hospital stay. His pain was controlled with a combination of oral and IV pain medications. Aspirin 325 mg was started on postoperative day #1 as DVT prophylaxis. His vital signs have been stable. He has been afebrile. His hemoglobin on the morning of October 15 was 11.3. He is ambulating well with a wheeled walker. He feels comfortable with discharge to home. DISCHARGE MEDICATIONS: 1. OxyContin 10 mg. 2. Percocet 5/325. 3. Colace 100 mg. 4. Aspirin 325 mg. DISCHARGE INSTRUCTIONS: 1. Followup in clinic 10 to 14 days from the date of procedure. This appointment has been made for the patient. 2. Outpatient physical therapy 2 to 3 times per week for 4 to 6 weeks. 3. No driving while taking narcotics. 4. Polar Care to the left knee as needed. 5. MIKE hose, on in the morning, off in the evening. 6. He is to change his dressing on Thursday, October 19, 2017. He should place a new Aquacel dressing and leave that in place until followup. 7. It is okay to shower over the Aquacel dressing. For complete medication reconciliation and discharge instructions, please refer back to the patient's EHR. Should he have questions or concerns prior to followup, he has been advised to return to clinic or call. LEONARDO WILLIAM /[id number]
== END 2017-10-15 11:45 | disposition home or self-care (01) | DRG 941 ==
LOC: MW.SDS 09:31 → MW.MS 16:13 → MW.SDS 10-14 16:47
PROVIDERS: ADMIT Orthopaedic Surgery; ATTEND Orthopaedic Surgery
PROC: 0SRD0J9 Replacement of Left Knee Joint with Synthetic Substitute, Cemented, Open Approach (ICD-10-PCS; principal; 2017-10-13)
DX: M17.12 Unilateral primary osteoarthritis, left knee (principal); M25.762 Osteophyte, left knee; M23.42 Loose body in knee, left knee; G89.18 Other acute postprocedural pain; Z47.1 Aftercare following joint replacement surgery; I10 Essential (primary) hypertension; E78.00 Pure hypercholesterolemia, unspecified; E11.9 Type 2 diabetes mellitus without complications; E78.5 Hyperlipidemia, unspecified; N40.0 Benign prostatic hyperplasia without lower urinary tract symptoms; F41.8 Other specified anxiety disorders; Z79.899 Other long term (current) drug therapy; Z86.73 Personal history of transient ischemic attack (TIA), and cerebral infarction without residual deficits
CPT/HCPCS: 27447; 36415 ×2; 73560; 80048 ×2; 82962 ×6; 85014; 85018; 85025; 86850; 86900; 86901; 97110 ×2; 97161; 97530; A9270 ×13; C1713; C1776 ×4; J0171; J0690 ×2; J0735; J1885 ×2; J2250; J2274; J2405; J2795; J3010; J7050; J7120 ×2; 88304; 88311; J2704

== ENCOUNTER 2018-07-29 10:54 | Day surgery (SDC) | payer MEDICARE, OTHER ==
[~2018-07-29 10:54] MED LIST changes: -Acetaminophen 1,000 MG in Premix Bag 1 BAG IV SCH; -Famotidine 20 MG/2 ML SDV IVPUSH SCH; -Ketorolac 30 MG/ML SDV IVPUSH SCH; +Lactated Ringers 1,000 ML IV SCH; +Midazolam 1 MG/ML 2 ML SDV ONE; +Propofol 200 MG/20 ML SDV ONE; -Ropivacaine 49.25 ML, Ketorolac 30 MG, EPINEPHrine 0.5 MG, cloNIDine 80 MCG in Sodium C... INJECT SCH; -Scopolamine 1.5 MG Transdermal Patch TRDERM SCH; -Tranexamic Acid 4,000 MG in Sodium Chloride 0.9% 100 ML IV SCH; -ceFAZolin 2 GM in Premix Bag 1 BAG IV SCH; +cefOXitin 2 GM in Premix Bag 1 BAG IV ONE; +fentaNYL 100 MCG/2 ML SDV ONE; -oxyCODONE ER 20 MG TAB.ER PO SCH
--- NOTE | 2018-07-29 11:34 | PCM.PREANE ---
Preanesthetic Assessment - Anesthesia/Transfusion/Family Hx Anesthesia History: Prior Anesthesia Without Reaction Family History of Anesthesia Reaction: No Transfusion History: No Prior Transfusion(s) Intubation History: Unknown - Review of Systems General: No Symptoms Pulmonary: No Symptoms Cardiovascular: No Symptoms Gastrointestinal: No Symptoms Neurological: No Symptoms Other: Reports: None - Physical Assessment NPO Status Date: 07/28/18 Height: 1.75 m Weight: 93.894 kg ASA Class: 2 Mental Status: Alert & Oriented x3 Airway Class: Mallampati = 1 Dentition: Reports: Normal Dentition ROM/Head Extension: Full Lungs: Clear to Auscultation, Normal Respiratory Effort Cardiovascular: Regular Rate, Regular Rhythm - Allergies Allergies/Adverse Reactions: Allergies Allergy/AdvReac Type Severity Reaction Status Date / Time No Known Allergies Allergy Verified 07/23/18 15:56 - Blood Blood Available: No - Anesthesia Plan Pre-Op Medication Ordered: None - Acknowledgements Anesthesia Type Planned: MAC Pt an Appropriate Candidate for the Planned Anesthesia: Yes Alternatives and Risks of Anesthesia Discussed w Pt/Guardian: Yes Pt/Guardian Understands and Agrees with Anesthesia Plan: Yes Additional Comments: PMH: DM@, BPH, HTN PLAN: MAC/TIVA PreAnesthesia Questionnaire Other HEENT History: uses reading glasses Cardiovascular History: Reports: High Cholesterol, Hypertension Respiratory History: Reports: Sleep Apnea Other Respiratory History: does not use CPAP Gastrointestinal History: Reports: Colon Polyp Genitourinary History: Reports: BPH Musculoskeletal History: Reports: Osteoarthritis Neurological History: Reports: CVA Other Neuro History: "stroke 12 yrs ago" Psychiatric History: Reports: Anxiety, Depression Endocrine/Metabolic History: Reports: Diabetes, Type II, Obesity/BMI 30+ Oncologic (Cancer) History: Reports: None - Past Surgical History Head Surgeries/Procedures: Reports: None HEENT Surgical History: Reports: Other (See Below) Other HEENT Surgeries/Procedures: hx ear surgery as a child GI Surgical History: Reports: Colonoscopy, Hernia, Abdominal Male Surgical History: Reports: Vasectomy Musculoskeletal Surgical History: Reports: Knee Replacement, Shoulder Surgery Other Musculoskeletal Surgeries/Procedures:: hx rt ankle fusion and rt rotator cuff repair, left TKA - SUBSTANCE USE Smoking Status *Q: Never Smoker Recreational Drug Use History: No - HOME MEDS Home Medications: Home Meds Escitalopram Oxalate 20 mg PO DAILY 10/08/17 [History] Lisinopril 20 mg PO DAILY 10/08/17 [History] Tamsulosin HCl [Flomax] 0.4 mg PO DAILY 10/08/17 [History] Tolterodine Tartrate [Tolterodine Tartrate ER] 4 mg PO DAILY 10/08/17 [History] atorvaSTATin Calcium [Atorvastatin Calcium] 40 mg PO BEDTIME 10/08/17 [History] metFORMIN HCl [Metformin HCl ER] 500 mg PO BID 10/08/17 [History] Aspirin 81 mg PO BID 07/03/18 [History] - CURRENT (IN HOUSE) MEDS Current Meds: Current Medications Lactated Ringer's (Ringers, Lactated) 1,000 mls @ 125 mls/hr IV ASDIRECTED TAYE Discontinued Medications Fentanyl (Sublimaze) Confirm Administered Dose 100 mcg .ROUTE .STK-MED ONE Stop: 07/29/18 08:20 Cefoxitin Sodium 2 gm/ Premix 50 mls @ 100 mls/hr IV ONETIME ONE Stop: 07/29/18 07:29 Midazolam HCl (Versed 1 Mg/Ml) Confirm Administered Dose 2 mg .ROUTE .STK-MED ONE Stop: 07/29/18 08:20 Propofol (Diprivan 20 Ml) Confirm Administered Dose 200 mg .ROUTE .STK-MED ONE Stop: 07/29/18 08:20
[2018-07-29] MEDS ORDERED: Propofol 200 MG/20 ML SDV ONE ×2 (12:29)
--- NOTE | 2018-07-29 13:22 | PCM.OPNOTE ---
- General Post-Op/Procedure Note Date of Surgery/Procedure: 07/29/18 Operative Procedure(s): Colonoscopy Pre Op Diagnosis: Personal history of colon polyps Post-Op Diagnosis: No evidence of neoplasia Anesthesia Technique: MAC (ASA II) Primary Surgeon: Vance Orozco Condition: Good Free Text/Narrative:: DICTATION [id number] CPT CODE [id number]
--- NOTE | 2018-07-29 13:25 | PCM.POSTAN ---
POST ANESTHESIA ASSESSMENT - MENTAL STATUS Mental Status: Alert, Oriented - RESPIRATORY Respiratory Status: Respiratory Rate WNL, Airway Patent, O2 Saturation Stable - CARDIOVASCULAR CV Status: Pulse Rate WNL, Blood Pressure Stable - GASTROINTESTINAL GI Status: No Symptoms - POST OP HYDRATION Hydration Status: Adequate & Stable
[2018-07-29] MEDS ORDERED: Lactated Ringers 1,000 ML IV SCH (13:30)
--- NOTE | 2018-07-29 13:42 | PCM48HPAN ---
Post Anesthesia Note - EVALUATION WITHIN 48HRS OF ANESTHETIC Vital Signs in Normal Range: Yes Patient Participated in Evaluation: Yes Respiratory Function Stable: Yes Airway Patent: Yes Cardiovascular Function Stable: Yes Hydration Status Stable: Yes Pain Control Satisfactory: Yes Nausea and Vomiting Control Satisfactory: Yes Mental Status Recovered: Yes Pulse Rate: 65 SaO2: 94 Resp Rate: 12 Blood Pressure: 105/53 - COMMENTS/OBSERVATIONS Free Text/Narrative:: awake and alert. Passing gas. Eating peanut butter and jelly sandwich. Drinking water. doing well in Phase II.
--- NOTE | 2018-07-29 14:15 | OR ---
SURGEON: Vance Orozco M.D. DATE OF PROCEDURE: 07/29/2018 OPERATION PERFORMED: Colonoscopy. ANESTHESIA: MAC. ASA CLASSIFICATION: II. PREOPERATIVE DIAGNOSIS: Personal history of colon polyps. POSTOPERATIVE DIAGNOSIS: No evidence of neoplasia. DESCRIPTION OF PROCEDURE: The patient was taken to the endoscopy room and positioned on the endoscopy table in the left lateral decubitus position. Time-out was called for appropriate identification of the patient and procedure. Monitored anesthesia care was provided. The colonoscope was inserted into the rectum and advanced with minimal difficulty to the cecum where the colonoscope was retroflexed to visualize the ascending colon from below. The colonoscope was then straightened and slowly withdrawn. The cecum, ascending colon, hepatic flexure, transverse colon, splenic flexure, descending colon, sigmoid colon, and rectum were very well visualized. No tumors, polyps, diverticula, or angiodysplastic changes were noted anywhere throughout the lower gastrointestinal tract. Once the colonoscope was withdrawn to the rectum, it was retroflexed to visualize the anal orifice from above. Again, no tumors or polyps were encountered in the distal rectum. There were no acute hemorrhoidal changes. The colonoscope was then straightened, the rectum aspirated, and the colonoscope removed. The patient tolerated the procedure well and was taken to recovery room in stable condition. SIN / NATALIIA /[id number]
== END 2018-07-29 14:20 | disposition home or self-care (01) ==
LOC: MW.SDS 10:54
PROVIDERS: ATTEND Surgery
DX: Z12.11 Encounter for screening for malignant neoplasm of colon (principal); E11.9 Type 2 diabetes mellitus without complications; I10 Essential (primary) hypertension; E66.3 Overweight; Z68.30 Body mass index [BMI] 30.0-30.9, adult; H91.90 Unspecified hearing loss, unspecified ear; F32.9 Major depressive disorder, single episode, unspecified; Z86.010 Personal history of colon polyps; Z86.73 Personal history of transient ischemic attack (TIA), and cerebral infarction without residual deficits; Z79.82 Long term (current) use of aspirin; Z79.84 Long term (current) use of oral hypoglycemic drugs; Z79.899 Other long term (current) drug therapy
CPT/HCPCS: 82962; G0105; J2250; J2704; J3010; J7120

== ENCOUNTER 2021-01-09 08:36 | Day surgery (SDC) | payer MEDICARE, OTHER ==
[~2021-01-09 08:36] MED LIST changes: +Albuterol 0.083% 2.5 MG/3 ML Neb Soln NEB PRN; -Lactated Ringers 1,000 ML IV SCH; +Lidocaine 2% 5 ML SDV ONE; -Midazolam 1 MG/ML 2 ML SDV ONE; +Ondansetron 4 MG/2 ML SDV IVPUSH PRN; +Ondansetron 4 MG/2 ML SDV ONE; -cefOXitin 2 GM in Premix Bag 1 BAG IV ONE
[2021-01-09] MEDS ORDERED: Lactated Ringers 1,000 ML IV SCH (09:30)
--- NOTE | 2021-01-09 09:30 | PCM.PREANE ---
Preanesthetic Assessment - Anesthesia/Transfusion/Family Hx Anesthesia History: Prior Anesthesia Without Reaction Family History of Anesthesia Reaction: No Transfusion History: No Prior Transfusion(s) Intubation History: Unknown - Review of Systems General: No Symptoms Pulmonary: No Symptoms Cardiovascular: No Symptoms Gastrointestinal: No Symptoms Neurological: Pre-Existing Deficit, Difficulty Walking, Gait Disturbance Other: Reports: None - Physical Assessment NPO Status Date: 01/09/21 NPO Status Time: 00:00 Vital Signs: Last Vital Signs Temp 96.8 F L 01/09/21 08:46 Pulse 75 01/09/21 08:46 Resp 15 01/09/21 08:46 BP 138/75 01/09/21 08:46 Pulse Ox 94 L 01/09/21 08:46 Height: 5 ft 8 in Weight: 189 lb ASA Class: 3 Mental Status: Alert & Oriented x3 Airway Class: Mallampati = 2 Dentition: Reports: Normal Dentition ROM/Head Extension: Full Lungs: Clear to Auscultation, Normal Respiratory Effort Cardiovascular: Regular Rate, Regular Rhythm - Lab Values: Laboratory Last Values POC Glucose 89 mg/dL (70-99) 01/09/21 09:21 - Allergies Allergies/Adverse Reactions: Allergies Allergy/AdvReac Type Severity Reaction Status Date / Time No Known Allergies Allergy Verified 01/05/21 08:44 - Blood Blood Available: No - Acknowledgements Anesthesia Type Planned: General Anesthesia Pt an Appropriate Candidate for the Planned Anesthesia: Yes Alternatives and Risks of Anesthesia Discussed w Pt/Guardian: Yes Pt/Guardian Understands and Agrees with Anesthesia Plan: Yes PreAnesthesia Questionnaire HEENT History: Reports: Other (See Below) Other HEENT History: wears glasses Cardiovascular History: Reports: High Cholesterol, Hypertension Respiratory History: Reports: None Gastrointestinal History: Reports: Colon Polyp Other Gastrointestinal History: occasional heartburn, loss of appetite, weight loss Genitourinary History: Reports: BPH, Prostate Disorder Musculoskeletal History: Reports: Fracture, Osteoarthritis Neurological History: Reports: CVA Other Neuro History: "stroke 15 yrs ago", slight left sided weakness Psychiatric History: Reports: Anxiety, Depression Endocrine/Metabolic History: Reports: Diabetes, Type II Hematologic History: Reports: Iron Deficiency Immunologic History: Reports: None Oncologic (Cancer) History: Reports: None Dermatologic History: Reports: None - Past Surgical History Head Surgeries/Procedures: Reports: None HEENT Surgical History: Reports: Other (See Below) Other HEENT Surgeries/Procedures: hx ear surgery as a child Cardiovascular Surgical History: Reports: None Respiratory Surgical History: Reports: None GI Surgical History: Reports: Colonoscopy, Hernia, Abdominal Male Surgical History: Reports: Vasectomy Endocrine Surgical History: Reports: None Neurological Surgical History: Reports: None Musculoskeletal Surgical History: Reports: Knee Replacement, Shoulder Surgery Other Musculoskeletal Surgeries/Procedures:: hx rt ankle fusion and rt rotator cuff repair, left TKA Oncologic Surgical History: Reports: None Dermatological Surgical History: Reports: None - SUBSTANCE USE Tobacco Use Status *Q: Never Tobacco User - HOME MEDS Home Medications: Home Meds Escitalopram Oxalate 20 mg PO DAILY 10/08/17 [History] Lisinopril 20 mg PO DAILY 10/08/17 [History] Tamsulosin HCl [Flomax] 0.4 mg PO DAILY 10/08/17 [History] Tolterodine Tartrate [Tolterodine Tartrate ER] 4 mg PO DAILY 10/08/17 [History] atorvaSTATin Calcium [Atorvastatin Calcium] 40 mg PO BEDTIME 10/08/17 [History] metFORMIN HCl [Metformin HCl ER] 500 mg PO BIDMEALS 10/08/17 [History] Aspirin 81 mg PO DAILY 07/03/18 [History] Ferrous Sulfate 5 ml PO DAILY 01/05/21 [History] Meloxicam 7.5 mg PO DAILY 01/05/21 [History] - CURRENT (IN HOUSE) MEDS Current Meds: Current Medications Albuterol (Albuterol 0.083% 2.5 Mg/3 Ml Neb Soln) 2.5 mg NEB ONETIME PRN PRN Reason: Wheezing Lactated Ringer's (Ringers, Lactated) 1,000 mls @ 100 mls/hr IV ASDIRECTED [facility] Ondansetron HCl (Ondansetron 4 Mg/2 Ml Sdv) 4 mg IVPUSH ONETIME PRN PRN Reason: Nausea/Vomiting Discontinued Medications Fentanyl (Fentanyl 100 Mcg/2 Ml Sdv) Confirm Administered Dose 100 mcg .ROUTE .STK-MED ONE Stop: 01/09/21 08:23 Lidocaine (Lidocaine 2% 5 Ml Sdv) Confirm Administered Dose 5 ml .ROUTE .STK-MED ONE Stop: 01/09/21 08:26 Ondansetron HCl (Ondansetron 4 Mg/2 Ml Sdv) Confirm Administered Dose 4 mg .ROUTE .STK-MED ONE Stop: 01/09/21 08:26 Propofol (Propofol 200 Mg/20 Ml Sdv) Confirm Administered Dose 200 mg .ROUTE .STK-MED ONE Stop: 01/09/21 08:21
--- NOTE | 2021-01-09 11:48 | PCM.POSTAN ---
POST ANESTHESIA ASSESSMENT - MENTAL STATUS Mental Status: Alert, Oriented - VITAL SIGNS Vital Signs: Last Vital Signs Temp 96.8 F L 01/09/21 08:46 Pulse 61 01/09/21 11:44 Resp 10 L 01/09/21 11:44 BP 116/62 01/09/21 11:44 Pulse Ox 92 L 01/09/21 11:44 - RESPIRATORY Respiratory Status: Respiratory Rate WNL, Airway Patent, O2 Saturation Stable - CARDIOVASCULAR CV Status: Pulse Rate WNL, Blood Pressure Stable - GASTROINTESTINAL GI Status: No Symptoms - POST OP HYDRATION Hydration Status: Adequate & Stable
--- NOTE | 2021-01-09 11:49 | PCM48HPAN ---
Post Anesthesia Note - EVALUATION WITHIN 48HRS OF ANESTHETIC Vital Signs in Normal Range: Yes Patient Participated in Evaluation: Yes Respiratory Function Stable: Yes Airway Patent: Yes Cardiovascular Function Stable: Yes Hydration Status Stable: Yes Pain Control Satisfactory: Yes Nausea and Vomiting Control Satisfactory: Yes Mental Status Recovered: Yes Vital Signs: Last Vital Signs Temp 96.8 F L 01/09/21 08:46 Pulse 61 01/09/21 11:44 Resp 10 L 01/09/21 11:44 BP 116/62 01/09/21 11:44 Pulse Ox 92 L 01/09/21 11:44
--- NOTE | 2021-01-09 13:54 | PCM.OPNOTE ---
- General Post-Op/Procedure Note Date of Surgery/Procedure: 01/09/21 Operative Procedure(s): Diagnostic EGD Findings: Stomach half full of undigested food. Refluxing into the esophagus. Pre Op Diagnosis: Unintentional weight loss Post-Op Diagnosis: Gastroparesis Anesthesia Technique: MAC Primary Surgeon: Maranda Sams Condition: Stable Free Text/Narrative:: Intake & Output 01/08/21 01/09/21 01/09/21 22:59 06:59 14:59 Intake Total 975 Balance 975
--- NOTE | 2021-01-10 20:21 | OR ---
SURGEON: MARANDA SAMS MD DATE OF PROCEDURE: 01/09/2021 PREOPERATIVE DIAGNOSIS: Unintentional weight loss. POSTOPERATIVE DIAGNOSIS: Gastroparesis. PROCEDURE PERFORMED: Diagnostic esophagogastroduodenoscopy. PRIMARY SURGEON: Maranda Sams MD ANESTHESIA: MAC. INSTRUMENT USED: Olympus endoscope. EXTENT OF THE EXAM: To the first portion of the duodenum. PREPARATION: Poor. LIMITATIONS: Stomach and intestines had liquid and food in them. COMPLICATIONS: None. INDICATIONS: The patient is a 70-year-old male who has had an unintentional weight loss and early satiety for several months. The patient was sent to me for workup. He has had a recent colonoscopy in the past and no changes in his bowel habits, so the decision was made to proceed with a diagnostic EGD. I explained the procedure, expected perioperative course, and the risks. He verbalized understanding and wishes to proceed. PROCEDURE IN DETAIL: The patient was brought in to the endoscopy suite and placed in a beach chair position. A time-out was completed verifying the patient's name, age, date of , allergies, and procedure to be performed. A bite block was placed in the patient's mouth. Monitored anesthesia care was induced and continuous oxygen was provided via nasal cannula throughout the procedure. After adequate sedation was achieved, a well-lubricated endoscope was placed in the patient's mouth and advanced under direct visualization. Upon entering the esophagus, I could see food particles from the proximal esophagus down to the distal esophagus. Upon entering the stomach, I noticed that there was solid food and liquid filling more than half of the stomach itself. I alerted our Anesthesia team who sat him into a 90-degree position on the table to avoid any aspiration. I attempted to suction out as much fluid as I could. However, given the large amount of food in the stomach, I was unable to suction it all out. I was able to get into the first portion of the duodenum which appeared normal. However, there was a large amount of food and liquid in there as well. I quickly retracted the scope while examining what mucosa I could see. Biopsies were taken of the antrum, body, and fundus and sent for histologic review and H pylori testing. No ulceration was noted in the areas I could examine. The scope was then brought into the distal esophagus. A biopsy was taken here as well. The scope was quickly removed to avoid any aspiration. The procedure was terminated. The patient tolerated the procedure well, had no obvious episodes of aspiration, and was taken to PACU in stable condition. ENDOSCOPIC DIAGNOSIS: Gastroparesis. RECOMMENDATIONS: I visited with the patient's in the visitors room. We will begin workup for gastroparesis as a possible cause of the patient's early satiety and weight loss. GREY WILLIAM /[id number]
== END 2021-01-09 12:20 | disposition home or self-care (01) ==
LOC: MW.SDS 08:36
PROVIDERS: ATTEND Surgery
DX: K29.30 Chronic superficial gastritis without bleeding (principal); R63.4 Abnormal weight loss; K31.84 Gastroparesis; B96.81 Helicobacter pylori [H. pylori] as the cause of diseases classified elsewhere; K20.90 Esophagitis, unspecified without bleeding; E11.43 Type 2 diabetes mellitus with diabetic autonomic (poly)neuropathy; N40.1 Benign prostatic hyperplasia with lower urinary tract symptoms; N13.8 Other obstructive and reflux uropathy; D50.9 Iron deficiency anemia, unspecified; I10 Essential (primary) hypertension; E78.00 Pure hypercholesterolemia, unspecified; Z79.899 Other long term (current) drug therapy; Z79.82 Long term (current) use of aspirin; Z79.84 Long term (current) use of oral hypoglycemic drugs; Z98.890 Other specified postprocedural states
CPT/HCPCS: 43239; 82947; 88305; 88312; 88342; J2405; J2704; J3010; J7120; 00731; 99100

== ENCOUNTER 2021-01-11 15:13 | Inpatient (IN) | payer MEDICARE, OTHER ==
--- NOTE | 2021-01-11 15:43 | EDM.PDOC ---
ED HPI GENERAL MEDICAL PROBLEM - General Chief Complaint: Abdominal Pain Stated Complaint: pancreatitis Time Seen by Provider: 01/11/21 15:21 Source of Information: Reports: Patient History Limitations: Reports: No Limitations - History of Present Illness INITIAL COMMENTS - FREE TEXT/NARRATIVE: Patient is a 70-year-old male who was sent in from general surgery they did outpatient work-up showing patient has a pancreatitis and possible gastroparesis was introsusception. Patient states that for the past few months he had a 40 pound weight loss has not had any appetite. Patient is able to tolerate some fluids and liquids but does not feel hungry. Patient still have urinary output via small amount of bowel movements. Patient denies any fever chills any nausea vomiting chest pain or other concerning symptoms. abdomen Pain Score (Numeric/FACES): 5 - Related Data Allergies Allergy/AdvReac Type Severity Reaction Status Date / Time No Known Allergies Allergy Verified 01/11/21 15:24 Home Meds: Home Meds Escitalopram Oxalate 20 mg PO DAILY 10/08/17 [History] Lisinopril 10 mg PO DAILY 10/08/17 [History] Tamsulosin HCl [Flomax] 0.4 mg PO DAILY 10/08/17 [History] Tolterodine Tartrate [Tolterodine Tartrate ER] 4 mg PO DAILY 10/08/17 [History] atorvaSTATin Calcium [Atorvastatin Calcium] 40 mg PO BEDTIME 10/08/17 [History] metFORMIN HCl [Metformin HCl ER] 500 mg PO BIDMEALS 10/08/17 [History] Ferrous Sulfate 5 ml PO DAILY 01/05/21 [History] Meloxicam 7.5 mg PO DAILY 01/05/21 [History] Finasteride 5 mg PO DAILY 01/11/21 [History] Latanoprost 1 drop EYEBOTH BEDTIME 01/11/21 [History] Past Medical History HEENT History: Reports: Other (See Below) Other HEENT History: wears glasses Cardiovascular History: Reports: High Cholesterol, Hypertension Respiratory History: Reports: None Gastrointestinal History: Reports: Colon Polyp, GERD Other Gastrointestinal History: loss of appetite, weight loss Genitourinary History: Reports: BPH, Prostate Disorder Musculoskeletal History: Reports: Fracture, Osteoarthritis Neurological History: Reports: CVA Other Neuro History: "stroke 15 yrs ago", slight left sided weakness Psychiatric History: Reports: Anxiety, Depression Endocrine/Metabolic History: Reports: Diabetes, Type II Hematologic History: Reports: Iron Deficiency Immunologic History: Reports: None Oncologic (Cancer) History: Reports: None Dermatologic History: Reports: None - Infectious Disease History Infectious Disease History: Reports: None - Past Surgical History Head Surgeries/Procedures: Reports: None HEENT Surgical History: Reports: Other (See Below) Other HEENT Surgeries/Procedures: hx ear surgery as a child Cardiovascular Surgical History: Reports: None Respiratory Surgical History: Reports: None GI Surgical History: Reports: Colonoscopy, Hernia, Abdominal Male Surgical History: Reports: Vasectomy Endocrine Surgical History: Reports: None Neurological Surgical History: Reports: None Musculoskeletal Surgical History: Reports: Knee Replacement, Shoulder Surgery Other Musculoskeletal Surgeries/Procedures:: hx rt ankle fusion and rt rotator cuff repair, left TKA Oncologic Surgical History: Reports: None Dermatological Surgical History: Reports: None Social & Family History - Family History Family Medical History: No Pertinent Family History - Tobacco Use Tobacco Use Status *Q: Never Tobacco User - Caffeine Use Caffeine Use: Reports: Coffee - Recreational Drug Use Recreational Drug Use: No - Living Situation & Occupation Living situation: Reports: ED ROS GENERAL - Review of Systems Review Of Systems: See Below Constitutional: Reports: No Symptoms HEENT: Reports: No Symptoms Respiratory: Reports: No Symptoms Cardiovascular: Reports: No Symptoms Endocrine: Reports: No Symptoms GI/Abdominal: Reports: Abdominal Pain : Reports: No Symptoms Musculoskeletal: Reports: No Symptoms Skin: Reports: No Symptoms Neurological: Reports: No Symptoms Psychiatric: Reports: No Symptoms Hematologic/Lymphatic: Reports: No Symptoms Immunologic: Reports: No Symptoms ED EXAM, GI/ABD - Physical Exam Exam: See Below Exam Limited By: No Limitations General Appearance: Alert, WD/WN, No Apparent Distress Head: Atraumatic Neck: Normal Inspection Respiratory/Chest: No Respiratory Distress, Lungs Clear, Normal Breath Sounds Cardiovascular: Normal Peripheral Pulses, Regular Rate, Rhythm GI/Abdominal Exam: Soft, Non-Tender, No Distention Extremities: Normal Inspection Neurological: Alert, Oriented, CN II-XII Intact, Normal Cognition, Normal Gait #1 Interpretation EKG Date: 01/11/21 Time: 16:12 Rhythm: NSR Rate (Beats/Min): 62 ST-T: Normal Course - Vital Signs Last Recorded V/S: Last Vital Signs Temp 97.5 F 01/11/21 15:24 Pulse 58 L 01/11/21 17:05 Resp 17 06/24/21 17:05 BP 139/68 01/11/21 17:05 Pulse Ox 94 L 01/11/21 17:05 - Orders/Labs/Meds Orders: Active Orders 24 hr Category Date Time Status Patient Status [ADT] Routine ADT 01/11/21 18:09 Ordered EKG Documentation Completion [RC] STAT Care 01/11/21 15:40 Active Sodium Chloride 0.9% [Normal Saline] 1,000 ml Med 01/11/21 18:15 Active IV ASDIRECTED Medication Orders Sodium Chloride (Normal Saline) 1,000 mls @ 150 mls/hr IV ASDIRECTED TAYE Labs: Laboratory Tests 01/11/21 01/11/21 01/11/21 Range/Units 16:00 16:00 16:00 WBC 7.02 (4.0-11.0) K/uL RBC 3.99 L (4.50-5.90) M/uL Hgb 11.2 L (13.0-17.0) g/dL Hct 35.2 L (38.0-50.0) % MCV 88.2 (80.0-98.0) fL MCH 28.1 (27.0-32.0) pg MCHC 31.8 (31.0-37.0) g/dL RDW Std Deviation 49.2 (28.0-62.0) fl RDW Coeff of Shea 16 H (11.0-15.0) % Plt Count 205 (150-400) K/uL MPV 9.50 (7.40-12.00) fL Add Manual Diff YES Neutrophils % (Manual) 58 (48.0-80.0) % Lymphocytes % (Manual) 23 (16.0-40.0) % Monocytes % (Manual) 19 H (0.0-15.0) % Absolute Seg Neuts 4.1 (1.4-5.7) Lymphocytes # (Manual) 1.6 (0.6-2.4) Monocytes # (Manual) 1.3 H (0.0-0.8) Sodium 143 (136-148) mmol/L Potassium 3.8 (3.5-5.1) mmol/L Chloride 106 (98-107) mmol/L Carbon Dioxide 28.1 (21.0-32.0) mmol/L BUN 15 (7.0-18.0) mg/dL Creatinine 0.7 L (0.8-1.3) mg/dL Est Cr Clr Drug Dosing 93.64 mL/min Estimated GFR (MDRD) > 60.0 ml/min Glucose 121 H (74-106) mg/dL Lactic Acid 1.3 (0.4-2.0) mmol/L Calcium 8.7 (8.5-10.1) mg/dL Phosphorus 4.0 (2.6-4.7) mg/dL Magnesium 2.0 (1.8-2.4) mg/dL Total Bilirubin 0.4 (0.2-1.0) mg/dL AST 16 (15-37) IU/L ALT 15 (14-63) IU/L Alkaline Phosphatase 78 (46-116) U/L Creatine Kinase 77 (26-308) U/L Troponin I < 0.050 (0.000-0.056) ng/mL Total Protein 7.1 (6.4-8.2) g/dL Albumin 3.6 (3.4-5.0) g/dL Globulin 3.5 (2.6-4.0) g/dL Albumin/Globulin Ratio 1.0 (0.9-1.6) Lipase 149 (73-393) U/L Meds: Medications Generic Name Dose Route Start Last Admin Trade Name Freq PRN Reason Stop Dose Admin Sodium Chloride 1,000 mls @ 150 mls/hr 01/11/21 18:15 Normal Saline IV ASDIRECTED TAYE Departure - Departure Time of Disposition: 18:10 Disposition: Home, Self-Care 01 Condition: Good Clinical Impression: Pancreatitis - Discharge Information *PRESCRIPTION DRUG MONITORING PROGRAM REVIEWED*: Not Applicable *COPY OF PRESCRIPTION DRUG MONITORING REPORT IN PATIENT ZENAIDA: Not Applicable Referrals: Tramaine Moran MD [Primary Care Provider] - Forms: ED Department Discharge Sepsis Event Note (ED) - Evaluation Sepsis Screening Result: No Definite Risk - Focused Exam Vital Signs: Vital Signs Temp Pulse Resp BP Pulse Ox 01/11/21 17:05 58 L 17 139/68 94 L 01/11/21 15:24 97.5 F 58 L 17 146/64 H 94 L - My Orders Last 24 Hours: My Active Orders 01/11/21 15:40 EKG Documentation Completion [RC] STAT 01/11/21 18:09 Patient Status [ADT] Routine 01/11/21 18:15 Sodium Chloride 0.9% [Normal Saline] 1,000 ml IV ASDIRECTED - Assessment/Plan Last 24 Hours: My Active Orders 01/11/21 15:40 EKG Documentation Completion [RC] STAT 01/11/21 18:09 Patient Status [ADT] Routine 01/11/21 18:15 Sodium Chloride 0.9% [Normal Saline] 1,000 ml IV ASDIRECTED Plan: Patient is a 70-year-old female who is presenting from surgery clinic after having a pancreatitis with interception and gastroparesis. Patient is no abdominal tenderness on exam. Will obtain labs ultrasound and reassess patient as he is not a drinker.
[2021-01-11 16:46] LABS: BLOOD UREA NITROGEN,BUN 15 mg/dL (7.0-18.0); CARBON DIOXIDE,CO2 28.1 mmol/L (21.0-32.0); CHLORIDE,CL 106 mmol/L (98-107); GLUCOSE RANDOM 121 mg/dL (74-106); LIPASE 149 U/L (73-393); POTASSIUM,K 3.8 mmol/L (3.5-5.1); SODIUM,NA 143 mmol/L (136-148)
--- NOTE | 2021-01-11 18:08 | US ---
INDICATION: Non alcoholic pancreatitis TECHNIQUE: Ultrasound abdomen limited. Sonographic images of the right upper quadrant were obtained using lo-scale and color Doppler images. COMPARISON: CT abdomen pelvis January 10, 2021 FINDINGS: Liver: Normal in size and echotexture. No masses. No intrahepatic biliary dilatation. Gallbladder: The gallbladder appears contracted. No gallstones identified. Common bile duct: 2.6 mm. Pancreas: No pancreatic mass. Right kidney: 10.6 cm. Normal echotexture and cortex. No masses, stones, or hydronephrosis. IMPRESSION: Limited study. The gallbladder is contracted. No definite gallstones identified. Recommend repeat study after 8 hour fast. Dictated by Zaria Evans MD @ 01/11/2021 6:08:[address] Zaria Evans @ Jan 11 2021 6:08PM
[2021-01-11] MEDS ORDERED: Sodium Chloride 0.9% 1,000 ML IV SCH (18:15)
[2021-01-11] MEDS ORDERED: Ondansetron 4 MG Tab.DIS PO PRN (19:22)
[2021-01-11] MEDS ORDERED: Docusate Sodium 100 MG Cap PO PRN (19:22)
[2021-01-11] MEDS ORDERED: Acetaminophen 325 MG Tab PO PRN (19:22)
--- NOTE | 2021-01-11 19:43 | PCM.HP.2 ---
<Pham Sullivan - Last Filed: 01/11/21 19:54> H&P History of Present Illness - General Date of Service: 01/11/21 Admit Problem/Dx: Admission Diagnosis/Problem Admission Diagnosis/Problem Pancreatitis Source of Information: Patient, Provider - History of Present Illness Initial Comments - Free Text/Narative: Patient is a 70-year-old gentleman with past medical history of diabetes mellitus, hypertension, hyperlipidemia, BPH, CVA 15 years ago. Was seen earlier today by Dr. Sams in surgery clinic for outpatient EGD found to have gastroparesis followed by abdominal CT indicating pancreatitis and possible intussusception. Patient was seen due to approximately 40 pound weight loss in the last few months. Continues to have decreased appetite, but denies any abdominal pain, nausea, vomiting, diarrhea, fever, chills, yellowing of his skin. Patient denies any other associated symptoms, denies any GI or complaints, denies any recent travel or sick contacts. ER course: CBCmild anemia of 11.2, CMPwithin normal limits, mag, Phos, lactic acid, AST, ALT, lipase and troponin all within normal limits. abdomen Pain Score (Numeric/FACES): 5 - Related Data Allergies/Adverse Reactions: Allergies Allergy/AdvReac Type Severity Reaction Status Date / Time No Known Allergies Allergy Verified 01/11/21 21:10 Home Medications: Home Meds Escitalopram Oxalate 20 mg PO DAILY 10/08/17 [History] Lisinopril 10 mg PO DAILY 10/08/17 [History] Tamsulosin HCl [Flomax] 0.4 mg PO DAILY 10/08/17 [History] Tolterodine Tartrate [Tolterodine Tartrate ER] 4 mg PO DAILY 10/08/17 [History] atorvaSTATin Calcium [Atorvastatin Calcium] 40 mg PO BEDTIME 10/08/17 [History] metFORMIN HCl [Metformin HCl ER] 500 mg PO BIDMEALS 10/08/17 [History] Ferrous Sulfate 5 ml PO DAILY 01/05/21 [History] Meloxicam 7.5 mg PO DAILY 01/05/21 [History] Finasteride 5 mg PO DAILY 01/11/21 [History] Latanoprost 1 drop EYEBOTH BEDTIME 01/11/21 [History] Past Medical History HEENT History: Reports: Other (See Below) Other HEENT History: wears glasses Cardiovascular History: Reports: High Cholesterol, Hypertension Respiratory History: Reports: None Gastrointestinal History: Reports: Colon Polyp, GERD Other Gastrointestinal History: loss of appetite, weight loss Genitourinary History: Reports: BPH, Prostate Disorder Musculoskeletal History: Reports: Fracture, Osteoarthritis Neurological History: Reports: CVA Other Neuro History: "stroke 15 yrs ago", slight left sided weakness Psychiatric History: Reports: Anxiety, Depression Endocrine/Metabolic History: Reports: Diabetes, Type II Hematologic History: Reports: Iron Deficiency Immunologic History: Reports: None Oncologic (Cancer) History: Reports: None Dermatologic History: Reports: None - Infectious Disease History Infectious Disease History: Reports: None - Past Surgical History Head Surgeries/Procedures: Reports: None HEENT Surgical History: Reports: Other (See Below) Other HEENT Surgeries/Procedures: hx ear surgery as a child Cardiovascular Surgical History: Reports: None Respiratory Surgical History: Reports: None GI Surgical History: Reports: Colonoscopy, Hernia, Abdominal Male Surgical History: Reports: Vasectomy Endocrine Surgical History: Reports: None Neurological Surgical History: Reports: None Musculoskeletal Surgical History: Reports: Knee Replacement, Shoulder Surgery Other Musculoskeletal Surgeries/Procedures:: hx rt ankle fusion and rt rotator cuff repair, left TKA Oncologic Surgical History: Reports: None Dermatological Surgical History: Reports: None Social & Family History - Family History Family Medical History: No Pertinent Family History - Tobacco Use Tobacco Use Status *Q: Never Tobacco User - Caffeine Use Caffeine Use: Reports: Coffee - Recreational Drug Use Recreational Drug Use: No - Living Situation & Occupation Living situation: Reports: H&P Review of Systems - Review of Systems: Review Of Systems: See Below General: Reports: No Symptoms HEENT: Reports: No Symptoms Pulmonary: Reports: No Symptoms Cardiovascular: Reports: No Symptoms Gastrointestinal: Reports: Constipation, Decreased Appetite. Denies: Abdominal Pain, Anorexia, Black Stool, Bloody Stool, Diarrhea, Difficulty Swallowing, Distension, Flatus, Hematemesis, Hematochezia, Melena, Mucous in Stool, Nausea, Stool Incontinence, Vomiting Genitourinary: Reports: No Symptoms Musculoskeletal: Reports: No Symptoms Skin: Reports: No Symptoms Psychiatric: Reports: No Symptoms Neurological: Reports: No Symptoms Hematologic/Lymphatic: Reports: No Symptoms Immunologic: Reports: No Symptoms Exam - Exam Exam: See Below - Vital Signs Vital Signs: Last Vital Signs Temp 97.5 F 01/11/21 15:24 Pulse 53 L 01/11/21 18:46 Resp 17 01/11/21 18:46 BP 139/60 01/11/21 18:46 Pulse Ox 95 01/11/21 18:46 Weight: 84.368 kg - Exam Quality Assessment: Supplemental Oxygen General: Alert, Oriented, Cooperative HEENT: Conjunctiva Clear, EACs Clear, EOMI, Hearing Intact, PERRLA Neck: Supple, Trachea Midline Lungs: Clear to Auscultation, Normal Respiratory Effort Cardiovascular: Regular Rate, Regular Rhythm GI/Abdominal Exam: Normal Bowel Sounds, Soft, Non-Tender, No Organomegaly, No Distention, No Abnormal Bruit, No Mass Back Exam: Normal Inspection, Full Range of Motion Extremities: Normal Inspection, Normal Range of Motion, Non-Tender, No Pedal Edema, Normal Capillary Refill Peripheral Pulses: 2+: Carotid (L), Carotid (R), Dorsalis Pedis (L), Dorsalis Pedis (R) Skin: Warm, Dry, Intact Neurological: Cranial Nerves Intact, Reflexes Equal Bilateral Neuro Extensive - Mental Status: Alert, Oriented x3, Normal Mood/Affect, Normal Cognition, Memory Intact Neuro Extensive - Motor, Sensory, Reflexes: CN II-XII Intact, Normal Gait, Normal Reflexes DTR: 2+: Bicep (L), Bicep (R), Achilles (L), Achilles (R) Psychiatric: Alert, Normal Affect, Normal Mood - Patient Data Lab Results Last 24 hrs: Laboratory Results - last 24 hr 01/11/21 01/11/21 01/11/21 Range/Units 16:00 16:00 16:00 WBC 7.02 (4.0-11.0) K/uL RBC 3.99 L (4.50-5.90) M/uL Hgb 11.2 L (13.0-17.0) g/dL Hct 35.2 L (38.0-50.0) % MCV 88.2 (80.0-98.0) fL MCH 28.1 (27.0-32.0) pg MCHC 31.8 (31.0-37.0) g/dL RDW Std Deviation 49.2 (28.0-62.0) fl RDW Coeff of Shea 16 H (11.0-15.0) % Plt Count 205 (150-400) K/uL MPV 9.50 (7.40-12.00) fL Add Manual Diff YES Neutrophils % (Manual) 58 (48.0-80.0) % Lymphocytes % (Manual) 23 (16.0-40.0) % Monocytes % (Manual) 19 H (0.0-15.0) % Absolute Seg Neuts 4.1 (1.4-5.7) Lymphocytes # (Manual) 1.6 (0.6-2.4) Monocytes # (Manual) 1.3 H (0.0-0.8) Sodium 143 (136-148) mmol/L Potassium 3.8 (3.5-5.1) mmol/L Chloride 106 (98-107) mmol/L Carbon Dioxide 28.1 (21.0-32.0) mmol/L BUN 15 (7.0-18.0) mg/dL Creatinine 0.7 L (0.8-1.3) mg/dL Est Cr Clr Drug Dosing 93.64 mL/min Estimated GFR (MDRD) > 60.0 ml/min Glucose 121 H (74-106) mg/dL Lactic Acid 1.3 (0.4-2.0) mmol/L Calcium 8.7 (8.5-10.1) mg/dL Phosphorus 4.0 (2.6-4.7) mg/dL Magnesium 2.0 (1.8-2.4) mg/dL Total Bilirubin 0.4 (0.2-1.0) mg/dL AST 16 (15-37) IU/L ALT 15 (14-63) IU/L Alkaline Phosphatase 78 (46-116) U/L Creatine Kinase 77 (26-308) U/L Troponin I < 0.050 (0.000-0.056) ng/mL Total Protein 7.1 (6.4-8.2) g/dL Albumin 3.6 (3.4-5.0) g/dL Globulin 3.5 (2.6-4.0) g/dL Albumin/Globulin Ratio 1.0 (0.9-1.6) Lipase 149 (73-393) U/L Result Diagrams: 01/11/21 16:00 01/11/21 16:00 Sepsis Event Note - Evaluation Sepsis Screening Result: No Definite Risk - Focused Exam Vital Signs: Vital Signs Temp Pulse Resp BP Pulse Ox 01/11/21 18:46 53 L 17 139/60 95 01/11/21 17:05 58 L 17 139/68 94 L 01/11/21 15:24 97.5 F 58 L 17 146/64 H 94 L - Problem List (1) Pancreatitis SNOMED Code(s): 22376798 ICD Code: K85.90 - ACUTE PANCREATITIS WITHOUT NECROSIS OR INFECTION, UNSP Status: Acute Current Visit: Yes (2) BPH (benign prostatic hyperplasia) SNOMED Code(s): 943163042 ICD Code: N40.0 - BENIGN PROSTATIC HYPERPLASIA WITHOUT LOWER URINRY TRACT SYMP Status: Acute Current Visit: No Qualifiers: Lower urinary tract symptom presence: symptoms absent Qualified Code(s): N40.0 - Benign prostatic hyperplasia without lower urinary tract symptoms (3) DM type 2 (diabetes mellitus, type 2) SNOMED Code(s): 51407566 ICD Code: E11.9 - TYPE 2 DIABETES MELLITUS WITHOUT COMPLICATIONS Status: Acute Current Visit: No Qualifiers: Diabetes mellitus [facility] insulin use: without terminal computer operator use Diabetes mellitus complication status: without complication Qualified Code(s): E11.9 - Type 2 diabetes mellitus without complications (4) Degenerative joint disease (DJD) of hip SNOMED Code(s): 860973179 ICD Code: M16.9 - OSTEOARTHRITIS OF HIP, UNSPECIFIED Status: Acute Current Visit: No (5) Depression SNOMED Code(s): 36785142 ICD Code: F32.9 - MAJOR DEPRESSIVE DISORDER, SINGLE EPISODE, UNSPECIFIED Status: Acute Current Visit: No Qualifiers: Depression Type: unspecified Qualified Code(s): F32.9 - Major depressive disorder, single episode, unspecified (6) Dyslipidemia SNOMED Code(s): 275401823 ICD Code: E78.5 - HYPERLIPIDEMIA, UNSPECIFIED Status: Acute Current Visit: No (7) Gastroparesis SNOMED Code(s): 137303130 ICD Code: K31.84 - GASTROPARESIS Status: Acute Current Visit: No (8) HTN (hypertension) SNOMED Code(s): 22760086 ICD Code: I10 - ESSENTIAL (PRIMARY) HYPERTENSION Status: Acute Current Visit: No Qualifiers: Hypertension type: essential hypertension Qualified Code(s): I10 - Essential (primary) hypertension Problem List Initiated/Reviewed/Updated: Yes Orders Last 24hrs: Active Orders 24 hr Category Date Time Status Patient Status [ADT] Routine ADT 01/11/21 18:09 Active Antiembolic Devices [RC] PER UNIT ROUTINE Care 01/11/21 19:24 Ordered Blood Glucose Check, Bedside [RC] Q6HR Care 01/11/21 19:22 Ordered EKG Documentation Completion [RC] STAT Care 01/11/21 15:40 Active Oxygen Therapy [RC] PRN Care 01/11/21 19:22 Ordered Oxygen Therapy [RC] PRN Care 01/11/21 19:25 Ordered Up ad Shirley [RC] ASDIRECTED Care 01/11/21 19:22 Ordered VTE/DVT Education [RC] PER UNIT ROUTINE Care 01/11/21 19:22 Ordered VTE/DVT Education [RC] PER UNIT ROUTINE Care 01/11/21 19:25 Ordered Vital Signs [RC] Q4H Care 01/11/21 19:22 Ordered Vital Signs [RC] Q4H Care 01/11/21 19:25 Ordered Nothing per Oral Now Diet [DIET] Diet 01/11/21 Dinner Ordered CBC WITH AUTO DIFF [HEME] AM Lab 01/12/21 05:11 Ordered COMPREHENSIVE METABOLIC PN,CMP [CHEM] AM Lab 01/12/21 05:11 Ordered COMPREHENSIVE METABOLIC PN,CMP [CHEM] AM Lab 01/13/21 05:11 Ordered COMPREHENSIVE METABOLIC PN,CMP [CHEM] AM Lab 01/14/21 05:11 Ordered GLYCOSYLATED HEMOGLOBIN,HGBA1C [CHEM] Routine Lab 01/11/21 19:27 Ordered LIPID PANEL [CHEM] Routine Lab 01/11/21 19:27 Ordered TSH [CHEM] Routine Lab 01/11/21 19:27 Ordered Acetaminophen [TylenoL] Med 01/11/21 19:22 Ordered 650 mg PO Q4H PRN Docusate Sodium [Colace] Med 01/11/21 19:22 Ordered 100 mg PO BID PRN Enoxaparin [Lovenox] Med 01/11/21 19:30 Ordered 40 mg SUBCUT Q24H Escitalopram Oxalate Med 01/12/21 09:00 Ordered 20 mg PO DAILY Ferrous Sulfate Med 01/12/21 09:00 Ordered 300 mg PO DAILY Finasteride [Proscar] Med 01/12/21 09:00 Ordered 5 mg PO DAILY Lactated Ringers @ 125 MLS/HR(1000ml) Med 01/11/21 19:30 Ordered Lactated Ringers [Ringers, Lactated] 1,000 ml IV ASDIRECTED Latanoprost [Xalatan 0.005% Ophth Soln] Med 01/11/21 21:00 Ordered 1 drop EYEBOTH BEDTIME Lisinopril Med 01/12/21 09:00 Stop Req 10 mg PO DAILY Ondansetron [Zofran ODT] Med 01/11/21 19:22 Ordered 4 mg PO Q4H PRN Sodium Chloride 0.9% [Normal Saline] 1,000 ml Med 01/11/21 18:15 Active IV ASDIRECTED Tamsulosin [Flomax] Med 01/12/21 09:00 Ordered 0.4 mg PO DAILY Tolterodine Tartrate [Tolterodine Tartrate ER] Med 01/12/21 09:00 Ordered 4 mg PO DAILY atorvaSTATin [Lipitor] Med 01/11/21 21:00 Ordered 40 mg PO BEDTIME Sequential Compression Device [OM.PC] Per Unit Routine Oth 01/11/21 19:23 Ord ered Resuscitation Status Routine Resus Stat 01/11/21 19:22 Ordered Medication Orders Acetaminophen (Acetaminophen 325 Mg Tab) 650 mg PO Q4H PRN PRN Reason: Pain (Mild 1-3)/fever Atorvastatin Calcium (Atorvastatin 40 Mg Tab) 40 mg PO BEDTIME TAYE Docusate Sodium (Docusate Sodium 100 Mg Cap) 100 mg PO BID PRN PRN Reason: Constipation Enoxaparin Sodium (Enoxaparin 40 Mg/0.4 Ml Syringe) 40 mg SUBCUT Q24H TAYE Ferrous Sulfate (Ferrous Sulfate Liq 300 Mg/5 Ml Cup) 300 mg PO DAILY TAYE Finasteride (Finasteride 5 Mg Tab) 5 mg PO DAILY TAYE Sodium Chloride (Normal Saline) 1,000 mls @ 150 mls/hr IV ASDIRECTED TAYE Last Admin: 01/11/21 18:10 Dose: 150 mls/hr Documented by: AMAURY Lactated Ringer's (Ringers, Lactated) 1,000 mls @ 125 mls/hr IV ASDIRECTED TAYE Latanoprost (Latanoprost 0.005% Ophth Soln 2.5 Ml Bottle) ml EYEBOTH BEDTIME TAYE Non-Formulary Medication (Escitalopram Oxalate) 20 mg PO DAILY TAYE Non-Formulary Medication (Lisinopril) 10 mg PO DAILY [facility] Non-Formulary Medication (Tolterodine Tartrate [Tolterodine Tartrate Er]) 4 mg PO DAILY [facility] Ondansetron HCl (Ondansetron 4 Mg Tab.Dis) 4 mg PO Q4H PRN PRN Reason: nausea, able to take PO Tamsulosin HCl (Tamsulosin 0.4 Mg Cap.Er) 0.4 mg PO DAILY [facility] Assessment/Plan Comment:: 70-year old gentleman admitted for pancreatitis and pseudocyst. 1. Pancreatitis with pseudocyst: Afebrile, lipase 149 within normal limits, will keep patient n.p.o., fluid hydration LR at 125, patient may have ice chips and resume all home medications except will hold meloxicam and lisinopril as they can contribute to pancreatitis. Surgery has been consulted and is on board. Per CT report from January 10, 2021, there is an acute pancreatitis with possibly developing pseudocyst. Check lipid panel, hemoglobin A1c and TSH for possible underlying cause of weight loss. 2. Past medical history of diabetes mellitus type 2: We will hold home dose of Metformin, and start patient on sliding scale insul in. Currently patient n.p.o., will place patient on diabetic diet once we initiate foods. 3. History of hypertension, hyperlipidemia, BPH, degenerative joint disease: Resume all home meds except will be holding meloxicam and lisinopril. CODE STATUS: Full code DVT prophylaxis: Lovenox 40, SCDs <[place],Hooria - Last Filed: 01/12/21 11:28> H&P History of Present Illness - General Admit Problem/Dx: Admission Diagnosis/Problem Admission Diagnosis/Problem Pancreatitis Exam - Vital Signs Vital Signs: Last Vital Signs Temp 36.4 C 01/12/21 09:00 Pulse 68 01/12/21 09:00 Resp 24 H 01/12/21 09:00 BP 118/56 L 01/12/21 09:00 Pulse Ox 94 L 01/12/21 09:00 - Patient Data Lab Results Last 24 hrs: Laboratory Results - last 24 hr 01/11/21 01/11/21 01/11/21 Range/Units 16:00 16:00 16:00 WBC 7.02 (4.0-11.0) K/uL RBC 3.99 L (4.50-5.90) M/uL Hgb 11.2 L (13.0-17.0) g/dL Hct 35.2 L (38.0-50.0) % MCV 88.2 (80.0-98.0) fL MCH 28.1 (27.0-32.0) pg MCHC 31.8 (31.0-37.0) g/dL RDW Std Deviation 49.2 (28.0-62.0) fl RDW Coeff of Shea 16 H (11.0-15.0) % Plt Count 205 (150-400) K/uL MPV 9.50 (7.40-12.00) fL Add Manual Diff YES Neutrophils % (Manual) 58 (48.0-80.0) % Band Neutrophils % % Lymphocytes % (Manual) 23 (16.0-40.0) % Monocytes % (Manual) 19 H (0.0-15.0) % Eosinophils % (Manual) (0.0-7.0) % Absolute Seg Neuts 4.1 (1.4-5.7) Band Neutrophils # Lymphocytes # (Manual) 1.6 (0.6-2.4) Monocytes # (Manual) 1.3 H (0.0-0.8) Eosinophils # (Manual) (0.0-0.7) Sodium 143 (136-148) mmol/L Potassium 3.8 (3.5-5.1) mmol/L Chloride 106 (98-107) mmol/L Carbon Dioxide 28.1 (21.0-32.0) mmol/L BUN 15 (7.0-18.0) mg/dL Creatinine 0.7 L (0.8-1.3) mg/dL Est Cr Clr Drug Dosing 93.64 mL/min Estimated GFR (MDRD) > 60.0 ml/min Glucose 121 H (74-106) mg/dL POC Glucose (70-99) mg/dL Hemoglobin A1c (4.5 - 6.2) % Lactic Acid 1.3 (0.4-2.0) mmol/L Calcium 8.7 (8.5-10.1) mg/dL Phosphorus 4.0 (2.6-4.7) mg/dL Magnesium 2.0 (1.8-2.4) mg/dL Total Bilirubin 0.4 (0.2-1.0) mg/dL AST 16 (15-37) IU/L ALT 15 (14-63) IU/L Alkaline Phosphatase 78 (46-116) U/L Creatine Kinase 77 (26-308) U/L Troponin I < 0.050 (0.000-0.056) ng/mL Total Protein 7.1 (6.4-8.2) g/dL Albumin 3.6 (3.4-5.0) g/dL Globulin 3.5 (2.6-4.0) g/dL Albumin/Globulin Ratio 1.0 (0.9-1.6) Triglycerides (0-200) mg/dL Cholesterol (50-200) mg/dL LDL Cholesterol, Calc (60-180) mg/dL VLDL Cholesterol (5-55) mg/dL HDL Cholesterol (40-60) mg/dL Cholesterol/HDL Ratio (3.3-6.0) Lipase 149 (73-393) U/L Free T4 (0.76-1.46) ng/dL TSH 3rd Generation (0.36-3.74) uIU/mL 01/11/21 01/11/21 01/11/21 Range/Units 19:41 19:41 22:19 WBC (4.0-11.0) K/uL RBC (4.50-5.90) M/uL Hgb (13.0-17.0) g/dL Hct (38.0-50.0) % MCV (80.0-98.0) fL MCH (27.0-32.0) pg MCHC (31.0-37.0) g/dL RDW Std Deviation (28.0-62.0) fl RDW Coeff of Shea (11.0-15.0) % Plt Count (150-400) K/uL MPV (7.40-12.00) fL Add Manual Diff Neutrophils % (Manual) (48.0-80.0) % Band Neutrophils % % Lymphocytes % (Manual) (16.0-40.0) % Monocytes % (Manual) (0.0-15.0) % Eosinophils % (Manual) (0.0-7.0) % Absolute Seg Neuts (1.4-5.7) Band Neutrophils # Lymphocytes # (Manual) (0.6-2.4) Monocytes # (Manual) (0.0-0.8) Eosinophils # (Manual) (0.0-0.7) Sodium (136-148) mmol/L Potassium (3.5-5.1) mmol/L Chloride (98-107) mmol/L Carbon Dioxide (21.0-32.0) mmol/L BUN (7.0-18.0) mg/dL Creatinine (0.8-1.3) mg/dL Est Cr Clr Drug Dosing mL/min Estimated GFR (MDRD) ml/min Glucose (74-106) mg/dL POC Glucose 92 (70-99) mg/dL Hemoglobin A1c 5.8 (4.5 - 6.2) % Lactic Acid (0.4-2.0) mmol/L Calcium (8.5-10.1) mg/dL Phosphorus (2.6-4.7) mg/dL Magnesium (1.8-2.4) mg/dL Total Bilirubin (0.2-1.0) mg/dL AST (15-37) IU/L ALT (14-63) IU/L Alkaline Phosphatase (46-116) U/L Creatine Kinase (26-308) U/L Troponin I (0.000-0.056) ng/mL Total Protein (6.4-8.2) g/dL Albumin (3.4-5.0) g/dL Globulin (2.6-4.0) g/dL Albumin/Globulin Ratio (0.9-1.6) Triglycerides 54 (0-200) mg/dL Cholesterol 80 (50-200) mg/dL LDL Cholesterol, Calc 31 L (60-180) mg/dL VLDL Cholesterol 10 (5-55) mg/dL HDL Cholesterol 38 L (40-60) mg/dL Cholesterol/HDL Ratio 2.1 L (3.3-6.0) Lipase (73-393) U/L Free T4 (0.76-1.46) ng/dL TSH 3rd Generation 4.59 H (0.36-3.74) uIU/mL 01/12/21 01/12/21 01/12/21 Range/Units 00:43 05:15 05:15 WBC 5.36 (4.0-11.0) K/uL RBC 3.72 L (4.50-5.90) M/uL Hgb 10.2 L (13.0-17.0) g/dL Hct 33.0 L (38.0-50.0) % MCV 88.7 (80.0-98.0) fL MCH 27.4 (27.0-32.0) pg MCHC 30.9 L (31.0-37.0) g/dL RDW Std Deviation 48.8 (28.0-62.0) fl RDW Coeff of Shea 16 H (11.0-15.0) % Plt Count 169 (150-400) K/uL MPV 9.10 (7.40-12.00) fL Add Manual Diff YES Neutrophils % (Manual) 53 (48.0-80.0) % Band Neutrophils % 4 % Lymphocytes % (Manual) 32 (16.0-40.0) % Monocytes % (Manual) 10 (0.0-15.0) % Eosinophils % (Manual) 1 (0.0-7.0) % Absolute Seg Neuts 2.8 (1.4-5.7) Band Neutrophils # 0.2 Lymphocytes # (Manual) 1.7 (0.6-2.4) Monocytes # (Manual) 0.5 (0.0-0.8) Eosinophils # (Manual) 0.1 (0.0-0.7) Sodium 142 (136-148) mmol/L Potassium 3.6 (3.5-5.1) mmol/L Chloride 106 (98-107) mmol/L Carbon Dioxide 25.6 (21.0-32.0) mmol/L BUN 12 (7.0-18.0) mg/dL Creatinine 0.7 L (0.8-1.3) mg/dL Est Cr Clr Drug Dosing 93.64 mL/min Estimated GFR (MDRD) > 60.0 ml/min Glucose 83 (74-106) mg/dL POC Glucose 90 (70-99) mg/dL Hemoglobin A1c (4.5 - 6.2) % Lactic Acid (0.4-2.0) mmol/L Calcium 8.1 L (8.5-10.1) mg/dL Phosphorus (2.6-4.7) mg/dL Magnesium (1.8-2.4) mg/dL Total Bilirubin 0.5 (0.2-1.0) mg/dL AST 12 L (15-37) IU/L ALT 13 L (14-63) IU/L Alkaline Phosphatase 71 (46-116) U/L Creatine Kinase (26-308) U/L Troponin I (0.000-0.056) ng/mL Total Protein 6.1 L (6.4-8.2) g/dL Albumin 3.0 L (3.4-5.0) g/dL Globulin 3.1 (2.6-4.0) g/dL Albumin/Globulin Ratio 1.0 (0.9-1.6) Triglycerides (0-200) mg/dL Cholesterol (50-200) mg/dL LDL Cholesterol, Calc (60-180) mg/dL VLDL Cholesterol (5-55) mg/dL HDL Cholesterol (40-60) mg/dL Cholesterol/HDL Ratio (3.3-6.0) Lipase (73-393) U/L Free T4 (0.76-1.46) ng/dL TSH 3rd Generation (0.36-3.74) uIU/mL 01/12/21 01/12/21 Range/Units 05:15 06:45 WBC (4.0-11.0) K/uL RBC (4.50-5.90) M/uL Hgb (13.0-17.0) g/dL Hct (38.0-50.0) % MCV (80.0-98.0) fL MCH (27.0-32.0) pg MCHC (31.0-37.0) g/dL RDW Std Deviation (28.0-62.0) fl RDW Coeff of Shea (11.0-15.0) % Plt Count (150-400) K/uL MPV (7.40-12.00) fL Add Manual Diff Neutrophils % (Manual) (48.0-80.0) % Band Neutrophils % % Lymphocytes % (Manual) (16.0-40.0) % Monocytes % (Manual) (0.0-15.0) % Eosinophils % (Manual) (0.0-7.0) % Absolute Seg Neuts (1.4-5.7) Band Neutrophils # Lymphocytes # (Manual) (0.6-2.4) Monocytes # (Manual) (0.0-0.8) Eosinophils # (Manual) (0.0-0.7) Sodium (136-148) mmol/L Potassium (3.5-5.1) mmol/L Chloride (98-107) mmol/L Carbon Dioxide (21.0-32.0) mmol/L BUN (7.0-18.0) mg/dL Creatinine (0.8-1.3) mg/dL Est Cr Clr Drug Dosing mL/min Estimated GFR (MDRD) ml/min Glucose (74-106) mg/dL POC Glucose 94 (70-99) mg/dL Hemoglobin A1c (4.5 - 6.2) % Lactic Acid (0.4-2.0) mmol/L Calcium (8.5-10.1) mg/dL Phosphorus (2.6-4.7) mg/dL Magnesium (1.8-2.4) mg/dL Total Bilirubin (0.2-1.0) mg/dL AST (15-37) IU/L ALT (14-63) IU/L Alkaline Phosphatase (46-116) U/L Creatine Kinase (26-308) U/L Troponin I (0.000-0.056) ng/mL Total Protein (6.4-8.2) g/dL Albumin (3.4-5.0) g/dL Globulin (2.6-4.0) g/dL Albumin/Globulin Ratio (0.9-1.6) Triglycerides (0-200) mg/dL Cholesterol (50-200) mg/dL LDL Cholesterol, Calc (60-180) mg/dL VLDL Cholesterol (5-55) mg/dL HDL Cholesterol (40-60) mg/dL Cholesterol/HDL Ratio (3.3-6.0) Lipase (73-393) U/L Free T4 0.99 (0.76-1.46) ng/dL TSH 3rd Generation (0.36-3.74) uIU/mL Result Diagrams: 01/12/21 05:15 01/12/21 05:15 Sepsis Event Note - Focused Exam Vital Signs: Vital Signs Temp Pulse Resp BP Pulse Ox 01/12/21 09:00 36.4 C 68 24 H 118/56 L 94 L 01/12/21 08:00 36.4 C 53 L 16 152/69 H 95 01/12/21 04:00 36.2 C 52 L 17 136/59 L 93 L 01/12/21 00:00 36.5 C 64 18 137/61 94 L Orders Last 24hrs: Active Orders 24 hr Category Date Time Status Patient Status [ADT] Routine ADT 01/11/21 18:09 Active Antiembolic Devices [RC] PER UNIT ROUTINE Care 01/11/21 19:24 Active Blood Glucose Check, Bedside [RC] Q6HR Care 01/11/21 19:22 Active EKG Documentation Completion [RC] STAT Care 01/11/21 15:40 Active Notify Provider Consults [RC] ASDIRECTED Care 01/11/21 19:52 Active Oxygen Therapy [RC] PRN Care 01/11/21 19:22 Active Oxygen Therapy [RC] PRN Care 01/11/21 19:25 Active Up ad Shirley [RC] ASDIRECTED Care 01/11/21 19:22 Active VTE/DVT Education [RC] PER UNIT ROUTINE Care 01/11/21 19:22 Active VTE/DVT Education [RC] PER UNIT ROUTINE Care 01/11/21 19:25 Active Vital Signs [RC] Q4H Care 01/11/21 19:22 Active Consult to Physician [CONS] Routine Cons 01/11/21 19:51 Active Nothing per Oral Now Diet [DIET] Diet 01/11/21 Dinner Active Abdomen w wo Cont [MR] Routine Exams 01/12/21 08:19 Taken COMPREHENSIVE METABOLIC PN,CMP [CHEM] AM Lab 01/13/21 05:11 Ordered COMPREHENSIVE METABOLIC PN,CMP [CHEM] AM Lab 01/14/21 05:11 Ordered Acetaminophen [TylenoL] Med 01/11/21 19:22 Active 650 mg PO Q4H PRN Dextrose 50% in Water Med 01/11/21 19:50 Active 50 ml IVPUSH ASDIRECTED PRN Docusate Sodium [Colace] Med 01/11/21 19:22 Active 100 mg PO BID PRN Enoxaparin [Lovenox] Med 01/11/21 21:00 Active 40 mg SUBCUT Q24H Escitalopram [Lexapro] Med 01/12/21 09:00 Active 20 mg PO DAILY Ferrous Sulfate Med 01/12/21 09:00 Active 300 mg PO DAILY Finasteride [Proscar] Med 01/12/21 09:00 Active 5 mg PO DAILY Glucagon,Human Recombinant [GlucaGen] Med 01/11/21 19:50 Active 1 mg IM ASDIRECTED PRN Insulin Aspart [NovoLOG] Med 01/12/21 07:30 Active See Protocol SUBCUT TIDAC Lactated Ringers [Ringers, Lactated] 1,000 ml Med 01/11/21 19:30 Active IV ASDIRECTED Latanoprost [Xalatan 0.005% Ophth Soln] Med 01/11/21 21:00 Active 0 ml EYEBOTH BEDTIME Ondansetron [Zofran ODT] Med 01/11/21 19:22 Active 4 mg PO Q4H PRN Sodium Chloride 0.9% [Normal Saline] 1,000 ml Med 01/11/21 18:15 Active IV ASDIRECTED Tamsulosin [Flomax] Med 01/12/21 09:00 Active 0.4 mg PO DAILY Tolterodine [Detrol LA 24 Hr] Med 01/12/21 09:00 Active 4 mg PO DAILY atorvaSTATin [Lipitor] Med 01/11/21 21:00 Active 40 mg PO BEDTIME Sequential Compression Device [OM.PC] Per Unit Routine Oth 01/11/21 19:23 Ordered Resuscitation Status Routine Resus Stat 01/11/21 19:22 Ordered Medication Orders Acetaminophen (Acetaminophen 325 Mg Tab) 650 mg PO Q4H PRN PRN Reason: Pain (Mild 1-3)/fever Atorvastatin Calcium (Atorvastatin 40 Mg Tab) 40 mg PO BEDTIME [place] [facility] Last Admin: 01/11/21 21:30 Dose: Not Given Documented by: DEBRA Dextrose/Water (50% Dextrose In Water 50 Ml Syringe) 50 ml IVPUSH ASDIRECTED PRN PRN Reason: Hypoglycemia Docusate Sodium (Docusate Sodium 100 Mg Cap) 100 mg PO BID PRN PRN Reason: Constipation Enoxaparin Sodium (Enoxaparin 40 Mg/0.4 Ml Syringe) 40 mg SUBCUT Q24H TAYE Last Admin: 01/11/21 21:30 Dose: 40 mg Documented by: DEBRA Escitalopram Oxalate (Escitalopram 10 Mg Tab) 20 mg PO DAILY [facility] Ferrous Sulfate (Ferrous Sulfate Liq 300 Mg/5 Ml Cup) 300 mg PO DAILY TAYE Finasteride (Finasteride 5 Mg Tab) 5 mg PO DAILY [facility] Glucagon (Glucagon,Human Recombinant 1 Mg Vial) 1 mg IM ASDIRECTED PRN PRN Reason: Hypoglycemia Sodium Chloride (Normal Saline) 1,000 mls @ 150 mls/hr IV ASDIRECTED TAYE Last Admin: 01/11/21 18:10 Dose: 150 mls/hr Documented by: AMAURY Lactated Ringer's (Ringers, Lactated) 1,000 mls @ 125 mls/hr IV ASDIRECTED TAYE Last Admin: 01/12/21 05:10 Dose: 125 mls/hr Documented by: Infusion: 01/12/21 05:07 Dose: 125 mls/hr Documented by: Admin: 01/11/21 21:07 Dose: 125 mls/hr Documented by: DEBRA Insulin Aspart (Insulin Aspart 100 Units/Ml 3 Ml Pen) 0 unit SUBCUT TIDAC TAYE; Protocol Latanoprost (Latanoprost 0.005% Ophth Soln 2.5 Ml Bottle) 0 ml EYEBOTH BEDTIME TAYE Last Admin: 01/11/21 21:30 Dose: Not Given Documented by: DEBRA Ondansetron HCl (Ondansetron 4 Mg Tab.Dis) 4 mg PO Q4H PRN PRN Reason: nausea, able to take PO Tamsulosin HCl (Tamsulosin 0.4 Mg Cap.Er) 0.4 mg PO DAILY TAYE Tolterodine Tartrate (Tolterodine 2 Mg Cap.Er) 4 mg PO DAILY TAYE Assessment/Plan Comment:: I performed a history and physical exam of the patient and discussed management with resident. I have reviewed the residents note and agree with documented findings and plan unless otherwise specified in my note.
[2021-01-11] MEDS ORDERED: Glucagon,Human Recombinant 1 MG Vial IM PRN (19:50)
[2021-01-11] MEDS ORDERED: 50% Dextrose in Water 50 ML Syringe IVPUSH PRN (19:50)
[2021-01-11 19:55] LABS: HEMOGLOBIN A1C 5.8 %
[2021-01-11] MEDS ORDERED: Latanoprost 0.005% Ophth Soln 2.5 ML Bottle EYEBOTH SCH (21:00)
[2021-01-11] MEDS ORDERED: Enoxaparin 40 MG/0.4 ML Syringe SUBCUT SCH (21:00)
[2021-01-11] MEDS: Lactated Ringers 1,000 ML IV SCH (21:07)
[2021-01-11] MEDS: atorvaSTATin 40 MG Tab PO SCH ×2 (21:30)
[2021-01-12] MEDS: Lactated Ringers 1,000 ML IV SCH (05:10)
[2021-01-12 06:54] LABS: BLOOD UREA NITROGEN,BUN 12 mg/dL (7.0-18.0); CARBON DIOXIDE,CO2 25.6 mmol/L (21.0-32.0); CHLORIDE,CL 106 mmol/L (98-107); GLUCOSE RANDOM 83 mg/dL (74-106); POTASSIUM,K 3.6 mmol/L (3.5-5.1); SODIUM,NA 142 mmol/L (136-148)
[2021-01-12] MEDS ORDERED: Escitalopram 10 MG Tab PO SCH (09:00)
[2021-01-12] MEDS ORDERED: Finasteride 5 MG Tab PO SCH (09:00)
[2021-01-12] MEDS ORDERED: Tamsulosin 0.4 MG Cap.ER PO SCH (09:00)
[2021-01-12] MEDS ORDERED: Ferrous Sulfate Liq 300 MG/5 ML Cup PO SCH (09:00)
[2021-01-12] MEDS ORDERED: Non-Formulary Medication 1 Each (Lisinopril 20 MG Tablet) PO SCH (09:00)
[2021-01-12] MEDS ORDERED: Tolterodine 2 MG Cap.ER PO SCH (09:00)
--- NOTE | 2021-01-12 09:22 | CONS ---
DATE OF CONSULTATION: 01/11/2021 DATE OF : 1950 PRIMARY CARE PHYSICIAN: Tramaine Moran M.D. HISTORY OF PRESENT ILLNESS: The patient is a pleasant 70-year-old gentleman who for the past 4 to 5 months has been losing weight. He reports losing about 40 pounds. He says food just does not taste good anymore. He also says he has some occasional mild nausea and heartburn. He did have upper endoscopy done yesterday, which was somewhat incomplete because of retained food in the stomach and in the second part of the duodenum. Because of this, CT scan of the abdomen and pelvis were done. CT scan did show acute pancreatitis involving the head and neck, small amount of fluid around the anterior aspect. There is a question of developing pseudocyst or potentially underlining mass in the pancreas. He also has distended duodenum and some mild wall thickening up through the proximal jejunum. He then has some thickening in the jejunal wall and potentially small little interception. This looks to be potentially somewhat chronic since he does have a fecalization of material. He also has some reactive inflammation of the duodenum. The patient denies any abdominal tenderness or pain. The patient reports going to the bathroom, although he reports his bowel movements have become smaller and less frequent. The patient says he used to go 3 times a day. Now, he just go once a day. The patient was admitted to Medicine Service because of pancreatitis. Currently, the patient is feeling good. Again, has no pain, nausea, or vomiting. PAST MEDICAL HISTORY: 1. Diabetes. 2. History of CVA. 3. BPH. 4. Hypertension. 5. Hypercholesterolemia. 6. Anxiety and depression. CURRENT HOME MEDICATIONS: 1. Metformin 500 mg p.o. b.i.d. 2. Atorvastatin 40 mg p.o. daily. 3. Tolterodine tartrate 4 mg p.o. daily. 4. Flomax 0.4 mg p.o. daily. 5. Meloxicam 7.5 mg p.o. daily. 6. Lisinopril 10 mg p.o. daily. 7. Finasteride 5 mg p.o. daily. 8. Iron sulfate mg p.o. daily. 9. Escitalopram 20 mg p.o. daily. ALLERGIES: No known drug allergies. PAST SURGICAL HISTORY: 1. Vasectomy. 2. Knee replacement. 3. Shoulder surgery. 4. Left total knee arthroplasty. SOCIAL HISTORY: The patient denies any tobacco use or alcohol use. LABORATORY DATA: White cell count is 7.02, hemoglobin is 11.2, and platelet count is 205. Sodium 143, potassium 3.8, chloride 106, creatinine 0.7, glucose 121, and lipase is 149. LFTs within normal limits. Lactic acid 1.3. PHYSICAL EXAMINATION: GENERAL: The patient is lying comfortably in his hospital bed. He is alert and answers questions appropriately. VITAL SIGNS: Temperature is 97.2, pulse is 54, blood pressure is 143/65, and saturating 96% on room air. LUNGS: Clear to auscultation bilaterally. No rhonchi or wheezing heard. HEART: Regular rate and rhythm. Soft systolic murmur heard. ABDOMEN: Soft, nontender, and nondistended. Good bowel sounds. IMAGING: As per HPI and he also had an ultrasound done, which showed contracted gallbladder, but no gallstones identified. ASSESSMENT AND PLAN: This is a pleasant 70-year-old gentleman, who has been losing weight over the last 4-5 months along with ingested food does not taste good anymore with some slight nausea. He did have a CT scan which showed inflammation around the pancreas with potentially a pancreatic mass versus pseudocyst. He also has thickening of his duodenum up to his duodenum with fecalization of bowel content. This appears to be chronic in nature. There is a question of a small intussusception, but no lead point. We talked to the Medicine Team. The patient should continue to be treated for his pancreatitis. He also needs further workup for this jejunal small bowel. The radiologist questions whether this is a reaction secondary to his pancreatitis. The patient may need further workup of this particularly a small bowel follow-through has resolved. Radiologist also recommends potentially another CT or MRI to further evaluate the pancreas. Discussed with the patient, currently does not seem to be any acute surgical issues since he has no white cell count and no pain. This seems to be going on for the last 4 to 5 months. Discussed with the Medicine Team. I will be leaving and will sign out to Dr. Bae, who will be following. VALENTIN / NATALIIA /[id number]
[2021-01-12] MEDS ORDERED: Gadobenate Dimeglumine 529 MG/ML 20 ML SDV IVPUSH STA (10:34)
--- NOTE | 2021-01-12 12:10 | MR ---
INDICATION: Anorexia and weight loss. Rule out pancreatic cancer. TECHNIQUE: Multiplanar imaging of the abdomen was performed without and with 16 cc of MultiHance contrast material IV. COMPARISON: Abdomen/pelvis CT of 01/10/2021. FINDINGS: Motion artifact degrades multiple images. Mild acute pancreatitis involving primarily head again appears to be present. Edema in the anterior pararenal space is again demonstrated along with a fluid collection superior to the pancreatic head and medial to the caudate lobe (segment 1) of the liver. This collection appears unchanged. No other peripancreatic fluid collection is identified. A trace of pancreatic ascites is present. The pancreatic duct is normal in caliber. No obvious pancreatic neoplasm is identified. No bile duct dilation is evident. Several stones appear to be present in a contracted, compartmentalized gallbladder. As on the previous examination, the stomach is distended with food and fluid. A short stricture of the 2nd portion of the duodenum appears to be present on images 23 and 24 series 701 and on images 26 and 27 of series 501. No mass is evident at this site. In addition, there is persistent dilation of the 3rd and 4th portion of the duodenum with a persistent stricture in the region of the duodenal-jejunal junction. This structure is suspicious for an annular carcinoma and measure roughly 1.5 cm in length. The liver, spleen and adrenal glands are grossly negative. Renal cysts are noted bilaterally. No lymphadenopathy is apparent. IMPRESSION: 1. Mild acute pancreatitis involving primarily the head with unchanged fluid collection superior to the head and medial to the caudate lobe of the liver. No obvious pancreatic neoplasm. 2. 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 3. Short stricture along the 2nd portion of the duodenum without obvious associated mass. Question secondary to previous pancreatitis. 4. Several stones in contracted, compartmentalized gallbladder. Dictated by Wilson Layne MD @ 01/12/2021 12:09:[address] Wilson Layne @ Jan 12 2021 12:09PM
[2021-01-12] MEDS: Insulin Aspart 100 Units/ML 3 ML Pen SUBCUT SCH ×2 (12:52→12:53)
--- NOTE | 2021-01-12 13:23 | PCM.DCSUM1 ---
Discharge Summary - Hospital Course HPI Initial Comments: Patient is a 70-year-old male who was sent in from general surgery they did outpatient work-up showing patient has a pancreatitis and possible gastroparesis was introsusception. Patient states that for the past few months he had a 40 pound weight loss has not had any appetite. Patient is able to tolerate some fluids and liquids but does not feel hungry. Patient still have urinary output via small amount of bowel movements. Patient denies any fever chills any nausea vomiting chest pain or other concerning symptoms. Brief History: Patient is a 70-year-old gentleman with past medical history of diabetes mellitus, hypertension, hyperlipidemia, BPH, CVA 15 years ago. Was seen earlier today by Dr. Sams in surgery clinic for outpatient EGD found to have gastroparesis followed by abdominal CT indicating pancreatitis and possible intussusception. Patient was seen due to approximately 40 pound weight loss in the last few months. Continues to have decreased appetite, but denies any abdominal pain, nausea, vomiting, diarrhea, fever, chills, yellowing of his skin. Patient denies any other associated symptoms, denies any GI or complaints, denies any recent travel or sick contacts. ER course: CBCmild anemia of 11.2, CMPwithin normal limits, mag, Phos, lactic acid, AST, ALT, lipase and troponin all within normal limits. Diagnosis: Stroke: No - Discharge Data Discharge Date: 01/12/21 Discharge Disposition: Home, Self-Care 01 Condition: Good - Referral to Home Health Primary Care Physician: Tramaine Moran MD - Discharge Diagnosis/Problem(s) (1) Pancreatitis SNOMED Code(s): 02784954 ICD Code: K85.90 - ACUTE PANCREATITIS WITHOUT NECROSIS OR INFECTION, UNSP Status: Acute (2) BPH (benign prostatic hyperplasia) SNOMED Code(s): 075211973 ICD Code: N40.0 - BENIGN PROSTATIC HYPERPLASIA WITHOUT LOWER URINRY TRACT SYMP Status: Acute Qualifiers: Lower urinary tract symptom presence: symptoms absent Qualified Code(s): N40.0 - Benign prostatic hyperplasia without lower urinary tract symptoms (3) DM type 2 (diabetes mellitus, type 2) SNOMED Code(s): 47360656 ICD Code: E11.9 - TYPE 2 DIABETES MELLITUS WITHOUT COMPLICATIONS Status: Acute Qualifiers: Diabetes mellitus longwall shearer operator insulin use: without jail use Diabetes mellitus complication status: without complication Qualified Code(s): E11.9 - Type 2 diabetes mellitus without complications (4) Degenerative joint disease (DJD) of hip SNOMED Code(s): 340066555 ICD Code: M16.9 - OSTEOARTHRITIS OF HIP, UNSPECIFIED Status: Acute (5) Depression SNOMED Code(s): 07900288 ICD Code: F32.9 - MAJOR DEPRESSIVE DISORDER, SINGLE EPISODE, UNSPECIFIED Status: Acute Qualifiers: Depression Type: unspecified Qualified Code(s): F32.9 - Major depressive disorder, single episode, unspecified (6) Dyslipidemia SNOMED Code(s): 882247972 ICD Code: E78.5 - HYPERLIPIDEMIA, UNSPECIFIED Status: Acute (7) Gastroparesis SNOMED Code(s): 226547379 ICD Code: K31.84 - GASTROPARESIS Status: Acute (8) HTN (hypertension) SNOMED Code(s): 77573719 ICD Code: I10 - ESSENTIAL (PRIMARY) HYPERTENSION Status: Acute Qualifiers: Hypertension type: essential hypertension Qualified Code(s): I10 - Essential (primary) hypertension - Patient Summary/Data Consults: Consultations 01/11/21 19:51 Consult to Physician [CONS] Routine Hospital Course: Patient was admitted for further work-up and evaluation of possible pancreatitis versus pancreatic mass found on EGD performed by Dr. Sams for history of significant weight loss and decreased appetite in previous months. Patient underwent MRI, found to have intestinal mass. Patient was vitally stable discharged home with appropriate follow-up with general surgeon Dr. Morales. Who will be discussing MRI findings further and discussing next steps at her next appointment next week. Patient and family understood. In the interim advised to continue with eating small meals as tolerated. - Patient Instructions Diet: Diabetic Diet Activity: As Tolerated Showering/Bathing: May Shower Notify Provider of: Fever, Increased Pain, Swelling and Redness, Drainage, Nausea and/or Vomiting Other/Special Instructions: Please return to hospital in the event you develop abdominal pain, inability to tolerate oral intake, weakness, dizziness, jaundice, nausea or vomiting or diarrhea. - Discharge Plan *PRESCRIPTION DRUG MONITORING PROGRAM REVIEWED*: Not Applicable *COPY OF PRESCRIPTION DRUG MONITORING REPORT IN PATIENT ZENAIDA: Not Applicable Home Medications: Home Meds Escitalopram Oxalate 20 mg PO DAILY 10/08/17 [History] Lisinopril 10 mg PO DAILY 10/08/17 [History] Tamsulosin HCl [Flomax] 0.4 mg PO DAILY 10/08/17 [History] Tolterodine Tartrate [Tolterodine Tartrate ER] 4 mg PO DAILY 10/08/17 [History] atorvaSTATin Calcium [Atorvastatin Calcium] 40 mg PO BEDTIME 10/08/17 [History] metFORMIN HCl [Metformin HCl ER] 500 mg PO BIDMEALS 10/08/17 [History] Ferrous Sulfate 5 ml PO DAILY 01/05/21 [History] Meloxicam 7.5 mg PO DAILY 01/05/21 [History] Finasteride 5 mg PO DAILY 01/11/21 [History] Latanoprost 1 drop EYEBOTH BEDTIME 01/11/21 [History] Patient Handouts: Acute Pancreatitis, [id number] Referrals: Beltran Thibodeaux MD [Resident] - 01/30/21 1:30 pm - Discharge Summary/Plan Comment DC Time >30 min.: No Discharge Summary/Plan Comment: Patient is to return to hospital in the event his symptoms return, worsen, patient develop significant abdominal pain, inability to tolerate oral intake, inability to pass stool or gas. Patient will be seen with PCP Dr. Miller is a post hospital follow-up as well as Dr. Sams general surgery to discuss recent MRI results and further work-up and next steps. - Patient Data Vitals - Most Recent: Last Vital Signs Temp 97.5 F 01/12/21 09:00 Pulse 68 01/12/21 09:00 Resp 24 H 01/12/21 09:00 BP 118/56 L 01/12/21 09:00 Pulse Ox 94 L 01/12/21 09:00 Weight - Most Recent: 187 lb I&O - Last 24 hours: Intake & Output 01/11/21 01/12/21 01/12/21 22:59 06:59 14:59 Intake Total 200 Output Total 350 Balance -150 Lab Results - Last 24 hrs: Laboratory Results - last 24 hr 01/11/21 01/11/21 01/11/21 Range/Units 16:00 16:00 16:00 WBC 7.02 (4.0-11.0) K/uL RBC 3.99 L (4.50-5.90) M/uL Hgb 11.2 L (13.0-17.0) g/dL Hct 35.2 L (38.0-50.0) % MCV 88.2 (80.0-98.0) fL MCH 28.1 (27.0-32.0) pg MCHC 31.8 (31.0-37.0) g/dL RDW Std Deviation 49.2 (28.0-62.0) fl RDW Coeff of Shea 16 H (11.0-15.0) % Plt Count 205 (150-400) K/uL MPV 9.50 (7.40-12.00) fL Add Manual Diff YES Neutrophils % (Manual) 58 (48.0-80.0) % Band Neutrophils % % Lymphocytes % (Manual) 23 (16.0-40.0) % Monocytes % (Manual) 19 H (0.0-15.0) % Eosinophils % (Manual) (0.0-7.0) % Absolute Seg Neuts 4.1 (1.4-5.7) Band Neutrophils # Lymphocytes # (Manual) 1.6 (0.6-2.4) Monocytes # (Manual) 1.3 H (0.0-0.8) Eosinophils # (Manual) (0.0-0.7) Sodium 143 (136-148) mmol/L Potassium 3.8 (3.5-5.1) mmol/L Chloride 106 (98-107) mmol/L Carbon Dioxide 28.1 (21.0-32.0) mmol/L BUN 15 (7.0-18.0) mg/dL Creatinine 0.7 L (0.8-1.3) mg/dL Est Cr Clr Drug Dosing 93.64 mL/min Estimated GFR (MDRD) > 60.0 ml/min Glucose 121 H (74-106) mg/dL POC Glucose (70-99) mg/dL Hemoglobin A1c (4.5 - 6.2) % Lactic Acid 1.3 (0.4-2.0) mmol/L Calcium 8.7 (8.5-10.1) mg/dL Phosphorus 4.0 (2.6-4.7) mg/dL Magnesium 2.0 (1.8-2.4) mg/dL Total Bilirubin 0.4 (0.2-1.0) mg/dL AST 16 (15-37) IU/L ALT 15 (14-63) IU/L Alkaline Phosphatase 78 (46-116) U/L Creatine Kinase 77 (26-308) U/L Troponin I < 0.050 (0.000-0.056) ng/mL Total Protein 7.1 (6.4-8.2) g/dL Albumin 3.6 (3.4-5.0) g/dL Globulin 3.5 (2.6-4.0) g/dL Albumin/Globulin Ratio 1.0 (0.9-1.6) Triglycerides (0-200) mg/dL Cholesterol (50-200) mg/dL LDL Cholesterol, Calc (60-180) mg/dL VLDL Cholesterol (5-55) mg/dL HDL Cholesterol (40-60) mg/dL Cholesterol/HDL Ratio (3.3-6.0) Lipase 149 (73-393) U/L Free T4 (0.76-1.46) ng/dL TSH 3rd Generation (0.36-3.74) uIU/mL 01/11/21 01/11/21 01/11/21 Range/Units 19:41 19:41 22:19 WBC (4.0-11.0) K/uL RBC (4.50-5.90) M/uL Hgb (13.0-17.0) g/dL Hct (38.0-50.0) % MCV (80.0-98.0) fL MCH (27.0-32.0) pg MCHC (31.0-37.0) g/dL RDW Std Deviation (28.0-62.0) fl RDW Coeff of Shea (11.0-15.0) % Plt Count (150-400) K/uL MPV (7.40-12.00) fL Add Manual Diff Neutrophils % (Manual) (48.0-80.0) % Band Neutrophils % % Lymphocytes % (Manual) (16.0-40.0) % Monocytes % (Manual) (0.0-15.0) % Eosinophils % (Manual) (0.0-7.0) % Absolute Seg Neuts (1.4-5.7) Band Neutrophils # Lymphocytes # (Manual) (0.6-2.4) Monocytes # (Manual) (0.0-0.8) Eosinophils # (Manual) (0.0-0.7) Sodium (136-148) mmol/L Potassium (3.5-5.1) mmol/L Chloride (98-107) mmol/L Carbon Dioxide (21.0-32.0) mmol/L BUN (7.0-18.0) mg/dL Creatinine (0.8-1.3) mg/dL Est Cr Clr Drug Dosing mL/min Estimated GFR (MDRD) ml/min Glucose (74-106) mg/dL POC Glucose 92 (70-99) mg/dL Hemoglobin A1c 5.8 (4.5 - 6.2) % Lactic Acid (0.4-2.0) mmol/L Calcium (8.5-10.1) mg/dL Phosphorus (2.6-4.7) mg/dL Magnesium (1.8-2.4) mg/dL Total Bilirubin (0.2-1.0) mg/dL AST (15-37) IU/L ALT (14-63) IU/L Alkaline Phosphatase (46-116) U/L Creatine Kinase (26-308) U/L Troponin I (0.000-0.056) ng/mL Total Protein (6.4-8.2) g/dL Albumin (3.4-5.0) g/dL Globulin (2.6-4.0) g/dL Albumin/Globulin Ratio (0.9-1.6) Triglycerides 54 (0-200) mg/dL Cholesterol 80 (50-200) mg/dL LDL Cholesterol, Calc 31 L (60-180) mg/dL VLDL Cholesterol 10 (5-55) mg/dL HDL Cholesterol 38 L (40-60) mg/dL Cholesterol/HDL Ratio 2.1 L (3.3-6.0) Lipase (73-393) U/L Free T4 (0.76-1.46) ng/dL TSH 3rd Generation 4.59 H (0.36-3.74) uIU/mL 01/12/21 01/12/21 01/12/21 Range/Units 00:43 05:15 05:15 WBC 5.36 (4.0-11.0) K/uL RBC 3.72 L (4.50-5.90) M/uL Hgb 10.2 L (13.0-17.0) g/dL Hct 33.0 L (38.0-50.0) % MCV 88.7 (80.0-98.0) fL MCH 27.4 (27.0-32.0) pg MCHC 30.9 L (31.0-37.0) g/dL RDW Std Deviation 48.8 (28.0-62.0) fl RDW Coeff of Shea 16 H (11.0-15.0) % Plt Count 169 (150-400) K/uL MPV 9.10 (7.40-12.00) fL Add Manual Diff YES Neutrophils % (Manual) 53 (48.0-80.0) % Band Neutrophils % 4 % Lymphocytes % (Manual) 32 (16.0-40.0) % Monocytes % (Manual) 10 (0.0-15.0) % Eosinophils % (Manual) 1 (0.0-7.0) % Absolute Seg Neuts 2.8 (1.4-5.7) Band Neutrophils # 0.2 Lymphocytes # (Manual) 1.7 (0.6-2.4) Monocytes # (Manual) 0.5 (0.0-0.8) Eosinophils # (Manual) 0.1 (0.0-0.7) Sodium 142 (136-148) mmol/L Potassium 3.6 (3.5-5.1) mmol/L Chloride 106 (98-107) mmol/L Carbon Dioxide 25.6 (21.0-32.0) mmol/L BUN 12 (7.0-18.0) mg/dL Creatinine 0.7 L (0.8-1.3) mg/dL Est Cr Clr Drug Dosing 93.64 mL/min Estimated GFR (MDRD) > 60.0 ml/min Glucose 83 (74-106) mg/dL POC Glucose 90 (70-99) mg/dL Hemoglobin A1c (4.5 - 6.2) % Lactic Acid (0.4-2.0) mmol/L Calcium 8.1 L (8.5-10.1) mg/dL Phosphorus (2.6-4.7) mg/dL Magnesium (1.8-2.4) mg/dL Total Bilirubin 0.5 (0.2-1.0) mg/dL AST 12 L (15-37) IU/L ALT 13 L (14-63) IU/L Alkaline Phosphatase 71 (46-116) U/L Creatine Kinase (26-308) U/L Troponin I (0.000-0.056) ng/mL Total Protein 6.1 L (6.4-8.2) g/dL Albumin 3.0 L (3.4-5.0) g/dL Globulin 3.1 (2.6-4.0) g/dL Albumin/Globulin Ratio 1.0 (0.9-1.6) Triglycerides (0-200) mg/dL Cholesterol (50-200) mg/dL LDL Cholesterol, Calc (60-180) mg/dL VLDL Cholesterol (5-55) mg/dL HDL Cholesterol (40-60) mg/dL Cholesterol/HDL Ratio (3.3-6.0) Lipase (73-393) U/L Free T4 (0.76-1.46) ng/dL TSH 3rd Generation (0.36-3.74) uIU/mL 01/12/21 01/12/21 01/12/21 Range/Units 05:15 06:45 11:34 WBC (4.0-11.0) K/uL RBC (4.50-5.90) M/uL Hgb (13.0-17.0) g/dL Hct (38.0-50.0) % MCV (80.0-98.0) fL MCH (27.0-32.0) pg MCHC (31.0-37.0) g/dL RDW Std Deviation (28.0-62.0) fl RDW Coeff of Shea (11.0-15.0) % Plt Count (150-400) K/uL MPV (7.40-12.00) fL Add Manual Diff Neutrophils % (Manual) (48.0-80.0) % Band Neutrophils % % Lymphocytes % (Manual) (16.0-40.0) % Monocytes % (Manual) (0.0-15.0) % Eosinophils % (Manual) (0.0-7.0) % Absolute Seg Neuts (1.4-5.7) Band Neutrophils # Lymphocytes # (Manual) (0.6-2.4) Monocytes # (Manual) (0.0-0.8) Eosinophils # (Manual) (0.0-0.7) Sodium (136-148) mmol/L Potassium (3.5-5.1) mmol/L Chloride (98-107) mmol/L Carbon Dioxide (21.0-32.0) mmol/L BUN (7.0-18.0) mg/dL Creatinine (0.8-1.3) mg/dL Est Cr Clr Drug Dosing mL/min Estimated GFR (MDRD) ml/min Glucose (74-106) mg/dL POC Glucose 94 84 (70-99) mg/dL Hemoglobin A1c (4.5 - 6.2) % Lactic Acid (0.4-2.0) mmol/L Calcium (8.5-10.1) mg/dL Phosphorus (2.6-4.7) mg/dL Magnesium (1.8-2.4) mg/dL Total Bilirubin (0.2-1.0) mg/dL AST (15-37) IU/L ALT (14-63) IU/L Alkaline Phosphatase (46-116) U/L Creatine Kinase (26-308) U/L Troponin I (0.000-0.056) ng/mL Total Protein (6.4-8.2) g/dL Albumin (3.4-5.0) g/dL Globulin (2.6-4.0) g/dL Albumin/Globulin Ratio (0.9-1.6) Triglycerides (0-200) mg/dL Cholesterol (50-200) mg/dL LDL Cholesterol, Calc (60-180) mg/dL VLDL Cholesterol (5-55) mg/dL HDL Cholesterol (40-60) mg/dL Cholesterol/HDL Ratio (3.3-6.0) Lipase (73-393) U/L Free T4 0.99 (0.76-1.46) ng/dL TSH 3rd Generation (0.36-3.74) uIU/mL Med Orders - Current: Current Medications Acetaminophen (Acetaminophen 325 Mg Tab) 650 mg PO Q4H PRN PRN Reason: Pain (Mild 1-3)/fever Atorvastatin Calcium (Atorvastatin 40 Mg Tab) 40 mg PO BEDTIME TAYE Last Admin: 01/11/21 21:30 Dose: Not Given Documented by: Dextrose/Water (50% Dextrose In Water 50 Ml Syringe) 50 ml IVPUSH ASDIRECTED PRN PRN Reason: Hypoglycemia Docusate Sodium (Docusate Sodium 100 Mg Cap) 100 mg PO BID PRN PRN Reason: Constipation Enoxaparin Sodium (Enoxaparin 40 Mg/0.4 Ml Syringe) 40 mg SUBCUT Q24H [facility] Last Admin: 01/11/21 21:30 Dose: 40 mg Documented by: Escitalopram Oxalate (Escitalopram 10 Mg Tab) 20 mg PO DAILY [facility] Last Admin: 01/12/21 11:43 Dose: 20 mg Documented by: Ferrous Sulfate (Ferrous Sulfate Liq 300 Mg/5 Ml Cup) 300 mg PO DAILY [facility] Last Admin: 01/12/21 11:43 Dose: 300 mg Documented by: Finasteride (Finasteride 5 Mg Tab) 5 mg PO DAILY [facility] Last Admin: 01/12/21 11:43 Dose: 5 mg Documented by: Glucagon (Glucagon,Human Recombinant 1 Mg Vial) 1 mg IM ASDIRECTED PRN PRN Reason: Hypoglycemia Sodium Chloride (Normal Saline) 1,000 mls @ 150 mls/hr IV ASDIRECTED [facility] Last Admin: 01/11/21 18:10 Dose: 150 mls/hr Documented by: Lactated Ringer's (Ringers, Lactated) 1,000 mls @ 125 mls/hr IV ASDIRECTED [facility] Last Admin: 01/12/21 05:10 Dose: 125 mls/hr Documented by: Insulin Aspart (Insulin Aspart 100 Units/Ml 3 Ml Pen) 0 unit SUBCUT TIDAC [facility]; Protocol Last Admin: 01/12/21 12:53 Dose: Not Given Documented by: Latanoprost (Latanoprost 0.005% Ophth Soln 2.5 Ml Bottle) 0 ml EYEBOTH BEDTIME [facility] Last Admin: 01/11/21 21:30 Dose: Not Given Documented by: Ondansetron HCl (Ondansetron 4 Mg Tab.Dis) 4 mg PO Q4H PRN PRN Reason: nausea, able to take PO Tamsulosin HCl (Tamsulosin 0.4 Mg Cap.Er) 0.4 mg PO DAILY [facility] Last Admin: 01/12/21 11:42 Dose: 0.4 mg Documented by: Tolterodine Tartrate (Tolterodine 2 Mg Cap.Er) 4 mg PO DAILY [facility] Last Admin: 01/12/21 11:42 Dose: 4 mg Documented by: Discontinued Medications Gadobenate Dimeglumine (Gadobenate Dimeglumine 529 Mg/Ml 20 Ml Sdv) 20 ml IVPUSH ONETIME STA Stop: 01/12/21 10:35 Last Admin: 01/12/21 10:35 Dose: 16 ml Documented by: Non-Formulary Medication (Lisinopril) 10 mg PO DAILY TAYE
== END 2021-01-12 13:48 | disposition home or self-care (01) | DRG 439 ==
LOC: MW.ED 15:13 → MW.MS 18:09
PROVIDERS: ADMIT Student in an Organized Health Care Education/Training Program; ATTEND Student in an Organized Health Care Education/Training Program
DX: K85.90 Acute pancreatitis without necrosis or infection, unspecified (principal); H54.7 Unspecified visual loss; K86.3 Pseudocyst of pancreas; I69.354 Hemiplegia and hemiparesis following cerebral infarction affecting left non-dominant side; K56.1 Intussusception; N40.0 Benign prostatic hyperplasia without lower urinary tract symptoms; M19.90 Unspecified osteoarthritis, unspecified site; M16.9 Osteoarthritis of hip, unspecified; F32.9 Major depressive disorder, single episode, unspecified; E78.5 Hyperlipidemia, unspecified; K31.84 Gastroparesis; E11.43 Type 2 diabetes mellitus with diabetic autonomic (poly)neuropathy; I10 Essential (primary) hypertension; K63.9 Disease of intestine, unspecified; D64.9 Anemia, unspecified; E78.00 Pure hypercholesterolemia, unspecified; F41.9 Anxiety disorder, unspecified; Z96.652 Presence of left artificial knee joint; R63.4 Abnormal weight loss; Z79.899 Other long term (current) drug therapy; Z68.28 Body mass index [BMI] 28.0-28.9, adult; K21.9 Gastro-esophageal reflux disease without esophagitis; E61.1 Iron deficiency; Z79.84 Long term (current) use of oral hypoglycemic drugs
CPT/HCPCS: 36415; 74183; 74183-26; 76705; 76705-26; 80053; 80061; 82550; 82947; 83036; 83605; 83690; 83735; 84100; 84439; 84443; 84484; 85025; 93005; 93010; 99283; 99285-25; A9270-GY; A9577; J1650; J7030; J7120

== ENCOUNTER 2021-03-20 06:29 | Day surgery (SDC) | payer MEDICARE, OTHER ==
[2021-03-20] MEDS ORDERED: Lactated Ringers 1,000 ML IV SCH (06:45)
--- NOTE | 2021-03-20 07:05 | PCM.PREANE ---
Preanesthetic Assessment - Procedure Proposed Procedure: Port-a-Cath Placement - Anesthesia/Transfusion/Family Hx Anesthesia History: Prior Anesthesia Without Reaction Transfusion History: No Prior Transfusion(s) Intubation History: Unknown - Review of Systems General: No Symptoms Pulmonary: No Symptoms (JASON does not use CPAP) Cardiovascular: No Symptoms (HTN. 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) Neurological: No Symptoms Other: Reports: Diabetes (NIDDM) - Physical Assessment NPO Status Date: 03/19/21 NPO Status Time: 18:00 Height: 5 ft 8 in Weight: 84.368 kg ASA Class: 3 Mental Status: Alert & Oriented x3 Airway Class: Mallampati = 2 Dentition: Reports: Missing Tooth/Teeth (1 missing, lower Right) Thyro-Mental Finger Breadths: 3 Mouth Opening Finger Breadths: 3 ROM/Head Extension: Full Lungs: Clear to Auscultation, Normal Respiratory Effort Cardiovascular: Regular Rate, Regular Rhythm - Allergies Allergies/Adverse Reactions: Allergies Allergy/AdvReac Type Severity Reaction Status Date / Time No Known Allergies Allergy Verified 03/19/21 10:17 - Acknowledgements Anesthesia Type Planned: MAC Pt an Appropriate Candidate for the Planned Anesthesia: Yes Alternatives and Risks of Anesthesia Discussed w Pt/Guardian: Yes Pt/Guardian Understands and Agrees with Anesthesia Plan: Yes PreAnesthesia Questionnaire HEENT History: Reports: Other (See Below) Other HEENT History: wears reading glasses Cardiovascular History: Reports: High Cholesterol, Hypertension Respiratory History: Reports: None Gastrointestinal History: Reports: Colon Polyp, GERD, Pancreatitis Other Gastrointestinal History: loss of appetite, weight loss Genitourinary History: Reports: BPH, Prostate Disorder Musculoskeletal History: Reports: Fracture, Osteoarthritis Neurological History: Reports: CVA Other Neuro History: "stroke 15 yrs ago", slight left sided weakness Psychiatric History: Reports: Anxiety, Depression Endocrine/Metabolic History: Reports: Diabetes, Type II Hematologic History: Reports: Iron Deficiency Immunologic History: Reports: None Oncologic (Cancer) History: Reports: Colon Dermatologic History: Reports: None - Infectious Disease History Infectious Disease History: Reports: None - Past Surgical History Head Surgeries/Procedures: Reports: None HEENT Surgical History: Reports: Other (See Below) Other HEENT Surgeries/Procedures: hx ear surgery as a child Cardiovascular Surgical History: Reports: None Respiratory Surgical History: Reports: None GI Surgical History: Reports: Colon, Colonoscopy, Hernia, Abdominal Other GI Surgeries/Procedures: recent colon resection Male Surgical History: Reports: Vasectomy Endocrine Surgical History: Reports: None Neurological Surgical History: Reports: None Musculoskeletal Surgical History: Reports: Knee Replacement, Shoulder Surgery, Other (See Below) Other Musculoskeletal Surgeries/Procedures:: hx rt ankle fusion and rt rotator cuff repair, left TKA Oncologic Surgical History: Reports: None Dermatological Surgical History: Reports: None - SUBSTANCE USE Tobacco Use Status *Q: Never Tobacco User Recreational Drug Use History: No - HOME MEDS Home Medications: Home Meds Lisinopril 10 mg PO DAILY 10/08/17 [History] Tamsulosin HCl [Flomax] 0.4 mg PO DAILY 10/08/17 [History] Tolterodine Tartrate [Tolterodine Tartrate ER] 4 mg PO DAILY 10/08/17 [History] atorvaSTATin Calcium [Atorvastatin Calcium] 40 mg PO BEDTIME 10/08/17 [History] metFORMIN HCl [Metformin HCl ER] 500 mg PO BIDMEALS 10/08/17 [History] Meloxicam 7.5 mg PO DAILY 01/05/21 [History] Finasteride 5 mg PO DAILY 01/11/21 [History] Latanoprost 1 drop EYEBOTH BEDTIME 01/11/21 [History] - CURRENT (IN HOUSE) MEDS Current Meds: Current Medications Lactated Ringer's (Ringers, Lactated) 1,000 mls @ 125 mls/hr IV [facility]
[2021-03-20] MEDS ORDERED: Bupivacaine 0.5% 30 ML SDV ONE (07:21)
[2021-03-20] MEDS ORDERED: Lidocaine 1% 20 ML MDV ONE (07:21)
[2021-03-20] MEDS ORDERED: Heparin Sodium 100 Units/ML 3 ML Syringe ONE ×2 (07:21→07:24)
[2021-03-20] MEDS ORDERED: Iopamidol 408 MG/ML 20 ML SDV ONE (07:22)
[2021-03-20] MEDS ORDERED: Octyl 2-Cyanoacrylate 1 Tube ONE (07:22)
[2021-03-20] MEDS ORDERED: Morphine 2 MG/ML SYRINGE IVPUSH PRN (07:28)
[2021-03-20] MEDS ORDERED: Albuterol 0.083% 2.5 MG/3 ML Neb Soln NEB PRN (07:28)
[2021-03-20] MEDS ORDERED: Metoclopramide 10 MG/2 ML SDV IVPUSH PRN (07:28)
[2021-03-20] MEDS ORDERED: Naloxone 0.4 MG/ML Syringe IVPUSH PRN (07:28)
[2021-03-20] MEDS ORDERED: Ondansetron 4 MG/2 ML SDV IVPUSH PRN (07:28)
[2021-03-20] MEDS ORDERED: HYDROmorphone 1 MG/ML Syringe IVPUSH PRN (07:28)
[2021-03-20] MEDS ORDERED: fentaNYL 100 MCG/2 ML SDV IVPUSH PRN (07:28)
[2021-03-20] MEDS ORDERED: fentaNYL 100 MCG/2 ML SDV ONE (07:32)
[2021-03-20] MEDS ORDERED: Propofol 200 MG/20 ML SDV ONE ×2 (07:32→08:28)
--- NOTE | 2021-03-20 09:11 | PCM.POSTAN ---
POST ANESTHESIA ASSESSMENT - MENTAL STATUS Mental Status: Somnolent - VITAL SIGNS Vital Signs: Last Vital Signs Temp 97.9 F 03/20/21 09:05 Pulse 53 L 03/20/21 09:05 Resp 13 03/20/21 09:05 BP 106/49 L 03/20/21 09:05 Pulse Ox 100 03/20/21 09:05 - RESPIRATORY Respiratory Status: Respiratory Rate WNL, Airway Patent, O2 Saturation Stable - CARDIOVASCULAR CV Status: Pulse Rate WNL, Blood Pressure Stable - GASTROINTESTINAL GI Status: No Symptoms - PAIN Free Text/Narrative:: Resting comfortably - POST OP HYDRATION Hydration Status: Adequate & Stable
--- NOTE | 2021-03-20 09:13 | PCM48HPAN ---
Post Anesthesia Note - EVALUATION WITHIN 48HRS OF ANESTHETIC Vital Signs in Normal Range: Yes Patient Participated in Evaluation: Yes Respiratory Function Stable: Yes Airway Patent: Yes Cardiovascular Function Stable: Yes Hydration Status Stable: Yes Pain Control Satisfactory: Yes Nausea and Vomiting Control Satisfactory: Yes Mental Status Recovered: Yes Vital Signs: Last Vital Signs Temp 97.9 F 03/20/21 09:05 Pulse 53 L 03/20/21 09:05 Resp 13 03/20/21 09:05 BP 106/49 L 03/20/21 09:05 Pulse Ox 100 03/20/21 09:05 - COMMENTS/OBSERVATIONS Free Text/Narrative:: Pt doing well post-op. VSS. No apparent anesthetic complications. Dr. Mark Ramirez
--- NOTE | 2021-03-20 09:53 | CR ---
INDICATION: Right chest port placement. COMPARISON: 06/21/2020. TECHNIQUE: Chest one-view. FINDINGS: Cardiac silhouette is borderline enlarged which could be accentuated due to portable technique. Right chest port tip is at the cavoatrial junction. No focal lung consolidation, pleural effusion or pneumothorax. IMPRESSION: Right chest port placement. No pneumothorax. Dictated by Deejay Wright MD @ 03/20/2021 9:52:[address] Deejay Wright @ Mar 20 2021 9:52AM
--- NOTE | 2021-03-20 09:55 | CR ---
INDICATION: Right chest port placement. COMPARISON: 06/21/2020. TECHNIQUE: Two fluoroscopic images of the right chest during chest port placement. 35.3 seconds fluoroscopy time. IMPRESSION: Intraoperative images. Right chest port placement, better assessed on subsequent chest x-ray. Dictated by Deejay Wright MD @ 03/20/2021 9:54:[address] Deejay Wright @ Mar 20 2021 9:54AM
--- NOTE | 2021-03-21 21:25 | OR ---
SURGEON: MARANDA SAMS MD DATE OF PROCEDURE: 03/20/2021 PREOPERATIVE DIAGNOSIS: Small bowel adenocarcinoma. POSTOPERATIVE DIAGNOSIS: Small bowel adenocarcinoma. PROCEDURE PERFORMED: Right internal jugular Port-A-Cath placement. PRIMARY SURGEON: Maranda Sams MD ANESTHESIA: MAC, local. FLUIDS: 400 mL crystalloid. ESTIMATED BLOOD LOSS: 10 mL. FINDINGS: Placement of right internal jugular Port-A-Cath without complications. COMPLICATIONS: None. INDICATIONS: The patient is a 70-year-old male who recently underwent surgery for small bowel obstruction. He was found to have a jejunal mass. The pathology came back as adenocarcinoma. He will be undergoing chemotherapy and is in need of a Port-A- Cath access. The patient and I discussed the procedure, expected perioperative course, and the risks. He verbalized understanding and wishes to proceed. PROCEDURE IN DETAIL: The patient was brought in to the OR and placed on the OR table in supine position. A time-out was completed verifying the patient's name, age, date of , allergies, and procedure to be performed. Monitored anesthesia care was induced. A roll was placed under the patient's shoulders and both arms were tucked to the patient's side. An ultrasound was brought into the field and I identified the vascular anatomy of the right side of the neck. A photograph was taken on the ultrasound and saved. The neck and upper chest were then prepped and draped in usual standard fashion. The patient was placed into Trendelenburg position. A sterile ultrasound probe was brought into the field and I reidentified the vascular anatomy of the right side of the neck. I anesthetized the skin overlying the right internal jugular vein with a combination of 0.5% Marcaine plain and 1% lidocaine plain. I also anesthetized my tunneling tract and my Port-A-Cath site on the right anterior chest wall. I then brought in an ultrasound and placed an access needle into the right internal jugular vein under direct visualization. A guidewire was passed down the needle into the vein. It passed without difficulty. X-ray was brought in and verified placement of the guidewire into the vena cava. The guidewire was then secured to the drapes and I turned my attention to the right chest wall. I used a 15- blade to make a 3 cm incision over the anterior chest wall two fingerbreadths below the right lateral clavicle. Electrocautery was then used to create a subcutaneous chest wall pocket. I then tunneled my catheter tubing up to the guidewire insertion site on the neck. A small kasey was made with an 11-blade to allow passage of the catheter tubing beside the guidewire. I then dilated my vascular tract over my guidewire under fluoroscopic guidance. I did this using a vascular sheath and dilator. The dilator and guidewire were then removed and the catheter tubing placed down through the vascular sheath. The vascular sheath was peeled away. I aspirated from my catheter tubing and had a good return of venous blood. The tip of the catheter was then moved into the distal one-third of the superior vena cava using fluoroscopic guidance. I then trimmed my catheter tubing to size and placed it on the Port-A-Cath device. The port was then placed in the chest wall pocket. I had a good return of venous blood through the Port-A-Cath device itself. I then flushed and locked the catheter with 3 mL of heparinized saline. The Port-A-Cath device was secured inside the chest wall pocket using interrupted 2-0 Prolene sutures on either side of the Port-A-Cath device. The subcutaneous fat layer was closed with interrupted 3-0 Vicryl stitches over the top of the Port-A-Cath device, and the skin was closed with a running 4-0 Monocryl suture. The insertion site on the neck was closed with an interrupted 4-0 Monocryl suture as well. Dermabond and sterile dressings were applied. The patient tolerated the procedure well, was awoken, and taken to PACU in stable condition. A postoperative chest x-ray showed good placement of the catheter tubing with no acute complications. All counts were complete and correct at the end of the case. GREY / NATALIIA /[id number]
== END 2021-03-20 10:05 | disposition home or self-care (01) ==
LOC: MW.SDS 06:29
PROVIDERS: ATTEND Surgery
DX: C17.1 Malignant neoplasm of jejunum (principal); G47.33 Obstructive sleep apnea (adult) (pediatric); I10 Essential (primary) hypertension; E78.5 Hyperlipidemia, unspecified; E11.9 Type 2 diabetes mellitus without complications; E78.00 Pure hypercholesterolemia, unspecified; Z86.010 Personal history of colon polyps; Z79.84 Long term (current) use of oral hypoglycemic drugs
CPT/HCPCS: 36561; 71045; 76000; 82947; A9270; C1788; J0690; J1642; J2704; J3010; J3490; J7120; 00532; 99100; Q9966

== ENCOUNTER 2021-11-12 09:02 | Day surgery (SDC) | payer MEDICARE, OTHER ==
[~2021-11-12 09:02] MED LIST changes: -Albuterol 0.083% 2.5 MG/3 ML Neb Soln NEB PRN; +Lactated Ringers 1,000 ML IV SCH; -Lidocaine 2% 5 ML SDV ONE; -Ondansetron 4 MG/2 ML SDV IVPUSH PRN; -Ondansetron 4 MG/2 ML SDV ONE; +Sodium Chloride 0.9% 10 ML Syringe FLUSH PRN; +Sodium Chloride 0.9% 2.5 ML Syringe FLUSH PRN; +Sodium Chloride 0.9% 20 ML SDV IV PRN; -fentaNYL 100 MCG/2 ML SDV ONE
[2021-11-12] MEDS ORDERED: Propofol 200 MG/20 ML SDV ONE (10:17)
== END 2021-11-12 11:54 | disposition home or self-care (01) ==
LOC: MW.SDS 09:02
PROVIDERS: ATTEND Surgery
DX: Z09 Encounter for follow-up examination after completed treatment for conditions other than malignant neoplasm (principal); K29.50 Unspecified chronic gastritis without bleeding; F41.9 Anxiety disorder, unspecified; E03.9 Hypothyroidism, unspecified; I10 Essential (primary) hypertension; F32.A Depression, unspecified; H91.90 Unspecified hearing loss, unspecified ear; K43.2 Incisional hernia without obstruction or gangrene; M19.90 Unspecified osteoarthritis, unspecified site; E78.00 Pure hypercholesterolemia, unspecified; E11.9 Type 2 diabetes mellitus without complications; E66.3 Overweight; Z79.84 Long term (current) use of oral hypoglycemic drugs; Z79.82 Long term (current) use of aspirin; Z79.899 Other long term (current) drug therapy; Z98.890 Other specified postprocedural states; Z86.010 Personal history of colon polyps; Z85.00 Personal history of malignant neoplasm of unspecified digestive organ; Z86.73 Personal history of transient ischemic attack (TIA), and cerebral infarction without residual deficits
CPT/HCPCS: 43239; 45378; 82947; J2704; J7120; 00813; 99100

== ENCOUNTER 2023-03-07 10:26 | Inpatient (IN) | payer MEDICARE, OTHER ==
[2023-03-07] MEDS ORDERED: Sodium Chloride 0.9% 10 ML Syringe FLUSH PRN ×2 (10:44→19:11)
[2023-03-07] MEDS ORDERED: Ondansetron 4 MG/2 ML SDV IVPUSH ONE (10:44)
[2023-03-07] MEDS ORDERED: Sodium Chloride 0.9% 1,000 ML IV ONE ×2 (10:44→12:54)
[2023-03-07] MEDS ORDERED: Sodium Chloride 0.9% 2.5 ML Syringe FLUSH PRN ×2 (10:44→19:11)
[2023-03-07 11:29] LABS: HEMATOCRIT 44.9 % (38.0-50.0); HEMOGLOBIN 14.6 g/dL (13.0-17.0); LYMPHOCYTES ABSOLUTE AUTO 1.3 K/uL (0.6-2.4); LYMPHOCYTES PERCENT AUTO 13.2 % (16.0-40.0); MEAN CORPUSCULAR HEMOGLOBIN 29.1 pg (27.0-32.0); MEAN CORPUSCULAR HGB CONC 32.5 g/dL (31.0-37.0); MEAN CORPUSCULAR VOLUME 89.4 fL (80.0-98.0); NEUTROPHILS ABSOLUTE AUTO 7.4 K/uL (1.4-5.7); NEUTROPHILS PERCENT AUTO 76.8 % (48.0-80.0); NRBC ABSOLUTE 0 K/uL; PLATELET COUNT,PLT 304 K/uL (150-400); RED BLOOD CELL COUNT 5.02 M/uL (4.50-5.90)
[2023-03-07 12:05] LABS: LACTIC ACID 1.9 mmol/L (0.4-2.0)
[2023-03-07 12:07] LABS: A/G RATIO 1.2 (0.9-1.6); ALBUMIN 4.5 g/dL (3.4-5.0); BILIRUBIN TOTAL 0.6 mg/dL (0.2-1.0); CALCIUM 9.9 mg/dL (8.5-10.1); CARBON DIOXIDE,CO2 27.9 mmol/L (21.0-32.0); CREATININE 1.2 mg/dL (0.8-1.3); EST CRCL DRUG DOSING (CG) 51.34 mL/min; POTASSIUM,K 4.1 mmol/L (3.5-5.1); PROTEIN TOTAL,TP 8.1 g/dL (6.4-8.2)
[2023-03-07] MEDS ORDERED: Metoclopramide 10 MG/2 ML SDV IVPUSH ONE (12:54)
[2023-03-07] MEDS ORDERED: diphenhydrAMINE 50 MG/ML SDV IVPUSH ONE (12:55)
[2023-03-07] MEDS ORDERED: Lidocaine 2% 11 ML Jelly Filled Syringe MUCMEM STA (12:55)
[2023-03-07] MEDS ORDERED: Iopamidol 755 Mg/ML 100 ML Bottle IVPUSH ONE (13:48)
[2023-03-07] MEDS ORDERED: Lactated Ringers 1,000 ML IV SCH (16:30)
[2023-03-07 18:15] LABS: APPEARANCE,URINE CLEAR; BILIRUBIN,URINE NEGATIVE (NEGATIVE); COLOR,URINE YELLOW; GLUCOSE,URINE NEGATIVE (NEGATIVE); KETONES,URINE 15 mg/dL (NEGATIVE); LEUKOCYTE ESTERASE,URINE NEGATIVE (NEGATIVE); NITRITE,URINE NEGATIVE (NEGATIVE); OCCULT BLOOD,URINE TRACE-INTACT (NEGATIVE); PROTEIN,URINE NEGATIVE (NEGATIVE); UROBILINOGEN,URINE 0.2 EU/dL (<2.0)
[2023-03-07 18:29] LABS: BACTERIA,URINE NOT SEEN (NEGATIVE); EPITHELIAL CELLS,URINE NOT SEEN (NONE-FEW); RBC,URINE 0-5 (0-2/HPF); WBC,URINE NONE SEEN (0-5/HPF)
[2023-03-07] MEDS ORDERED: Promethazine 25 MG/ML SDV IM PRN (19:11)
[2023-03-07] MEDS ORDERED: Ondansetron 4 MG/2 ML SDV IVPUSH PRN (19:11)
[2023-03-07] MEDS ORDERED: Albuterol/Ipratropium 3.0-0.5 MG/3 ML Neb Soln NEB PRN (19:11)
[2023-03-07] MEDS ORDERED: Naloxone 0.4 MG/ML SDV IVPUSH PRN (19:11)
[2023-03-07] MEDS ORDERED: Acetaminophen 325 MG Tab PO PRN (19:11)
[2023-03-07] MEDS ORDERED: Sodium Chloride 0.9% 20 ML SDV IV PRN (19:11)
[2023-03-07] MEDS ORDERED: Morphine 2 MG/ML SYRINGE IVPUSH PRN (19:11)
[2023-03-07] MEDS: Pantoprazole 40 MG in Sodium Chloride 0.9% 10 ML IVPUSH SCH (20:48)
[2023-03-07] MEDS: Latanoprost 0.005% Ophth Soln 2.5 ML Bottle EYEBOTH SCH (20:51)
[2023-03-08] MEDS: Lactated Ringers 1,000 ML IV SCH ×3 (02:10→21:59)
[2023-03-08 05:55] LABS: EOSINOPHILS PERCENT AUTO 0.3 % (0.0-7.0); HEMOGLOBIN 12.5 g/dL (13.0-17.0); LYMPHOCYTES ABSOLUTE AUTO 1.8 K/uL (0.6-2.4); LYMPHOCYTES PERCENT AUTO 24.8 % (16.0-40.0); MEAN CORPUSCULAR HEMOGLOBIN 28.7 pg (27.0-32.0); MEAN CORPUSCULAR HGB CONC 31.3 g/dL (31.0-37.0); MEAN CORPUSCULAR VOLUME 91.7 fL (80.0-98.0); MONOCYTES ABSOLUTE AUTO 1.1 K/uL (0.0-0.8); MONOCYTES PERCENT AUTO 15.4 % (0.0-15.0); NEUTROPHILS ABSOLUTE AUTO 4.4 K/uL (1.4-5.7); NEUTROPHILS PERCENT AUTO 59.5 % (48.0-80.0); NRBC ABSOLUTE 0 K/uL; PLATELET COUNT,PLT 228 K/uL (150-400); RED BLOOD CELL COUNT 4.36 M/uL (4.50-5.90); WHITE BLOOD CELL COUNT,WBC 7.39 K/uL (4.0-11.0)
[2023-03-08 06:20] LABS: CARBON DIOXIDE,CO2 30.7 mmol/L (21.0-32.0); CREATININE 0.8 mg/dL (0.8-1.3); EST CRCL DRUG DOSING (CG) 76.77 mL/min; MAGNESIUM 1.9 mg/dL (1.8-2.4); POTASSIUM,K 4.1 mmol/L (3.5-5.1)
[2023-03-08] MEDS ORDERED: Escitalopram 10 MG Tab ONE (08:49)
[2023-03-08] MEDS: Pantoprazole 40 MG in Sodium Chloride 0.9% 10 ML IVPUSH SCH ×2 (08:56→20:52)
[2023-03-08] MEDS: Tamsulosin 0.4 MG Cap.ER PO SCH (08:56)
[2023-03-08] MEDS: Escitalopram 10 MG Tab PO SCH (08:56)
[2023-03-08] MEDS: Lisinopril 10 MG Tab PO SCH (08:58)
[2023-03-08] MEDS: Enoxaparin 40 MG/0.4 ML Syringe SUBCUT SCH (08:59)
[2023-03-08] MEDS ORDERED: 50% Dextrose in Water 50 ML Syringe IVPUSH ONE (18:09)
[2023-03-08] MEDS ORDERED: 50% Dextrose in Water 50 ML Syringe ONE (18:24)
[2023-03-08] MEDS: Latanoprost 0.005% Ophth Soln 2.5 ML Bottle EYEBOTH SCH (20:52)
[2023-03-09] MEDS ORDERED: 50% Dextrose in Water 50 ML Syringe IVPUSH ONE (01:57)
[2023-03-09 05:47] LABS: BASOPHILS PERCENT AUTO 0.2 % (0.0-1.5); EOSINOPHILS PERCENT AUTO 0.5 % (0.0-7.0); HEMATOCRIT 35.6 % (38.0-50.0); LYMPHOCYTES ABSOLUTE AUTO 1.5 K/uL (0.6-2.4); LYMPHOCYTES PERCENT AUTO 24.3 % (16.0-40.0); MEAN CORPUSCULAR HEMOGLOBIN 28.1 pg (27.0-32.0); MEAN CORPUSCULAR HGB CONC 30.9 g/dL (31.0-37.0); MONOCYTES ABSOLUTE AUTO 0.9 K/uL (0.0-0.8); MONOCYTES PERCENT AUTO 14.7 % (0.0-15.0); NEUTROPHILS ABSOLUTE AUTO 3.6 K/uL (1.4-5.7); NEUTROPHILS PERCENT AUTO 60.3 % (48.0-80.0); NRBC ABSOLUTE 0 K/uL; PLATELET COUNT,PLT 175 K/uL (150-400); RED BLOOD CELL COUNT 3.91 M/uL (4.50-5.90)
[2023-03-09 06:08] LABS: A/G RATIO 1.1 (0.9-1.6); ALBUMIN 2.9 g/dL (3.4-5.0); BILIRUBIN TOTAL 0.4 mg/dL (0.2-1.0); CALCIUM 8.1 mg/dL (8.5-10.1); CARBON DIOXIDE,CO2 28.6 mmol/L (21.0-32.0); CREATININE 0.6 mg/dL (0.8-1.3); EST CRCL DRUG DOSING (CG) 102.36 mL/min; MAGNESIUM 1.6 mg/dL (1.8-2.4); POTASSIUM,K 3.2 mmol/L (3.5-5.1); PROTEIN TOTAL,TP 5.6 g/dL (6.4-8.2)
[2023-03-09] MEDS ORDERED: Magnesium Sulfate/Water 2 GM in Premix Bag 1 BAG IV ONE (07:37)
[2023-03-09] MEDS: Lactated Ringers 1,000 ML IV SCH (07:55)
[2023-03-09] MEDS: Potassium Chloride 100 ML IV SCH ×2 (08:04→10:22)
[2023-03-09] MEDS: Escitalopram 10 MG Tab PO SCH (09:08)
[2023-03-09] MEDS: Tamsulosin 0.4 MG Cap.ER PO SCH (09:08)
[2023-03-09] MEDS: Pantoprazole 40 MG in Sodium Chloride 0.9% 10 ML IVPUSH SCH ×2 (09:09→21:02)
[2023-03-09] MEDS: Lisinopril 10 MG Tab PO SCH (09:09)
[2023-03-09] MEDS: Enoxaparin 40 MG/0.4 ML Syringe SUBCUT SCH (09:09)
[2023-03-09] MEDS ORDERED: Melatonin 3 MG Tab PO PRN (18:23)
[2023-03-09] MEDS ORDERED: LORazepam 2 MG/ML SDV IVPUSH PRN (18:24)
[2023-03-09] MEDS: Latanoprost 0.005% Ophth Soln 2.5 ML Bottle EYEBOTH SCH (21:02)
[2023-03-10 06:16] LABS: CALCIUM 8.5 mg/dL (8.5-10.1); CARBON DIOXIDE,CO2 28.3 mmol/L (21.0-32.0); CREATININE 0.6 mg/dL (0.8-1.3); EST CRCL DRUG DOSING (CG) 102.36 mL/min; MAGNESIUM 1.6 mg/dL (1.8-2.4); POTASSIUM,K 3.6 mmol/L (3.5-5.1)
[2023-03-10] MEDS ORDERED: Magnesium Sulfate/Water 2 GM in Premix Bag 1 BAG IV ONE (07:33)
[2023-03-10] MEDS: Pantoprazole 40 MG in Sodium Chloride 0.9% 10 ML IVPUSH SCH (08:37)
[2023-03-10] MEDS: Enoxaparin 40 MG/0.4 ML Syringe SUBCUT SCH (08:40)
[2023-03-10] MEDS: Escitalopram 10 MG Tab PO SCH (08:41)
[2023-03-10] MEDS: Tamsulosin 0.4 MG Cap.ER PO SCH (08:41)
[2023-03-10] MEDS: Lisinopril 10 MG Tab PO SCH (08:50)
== END 2023-03-10 11:19 | disposition home or self-care (01) | DRG 375 ==
LOC: MW.ED 10:26 → INTOOBSV 17:52 → MW.MS 17:52 → OBSVTOIN 03-09 08:46
PROVIDERS: ADMIT Family Medicine; ATTEND Family Medicine
DX: C17.1 Malignant neoplasm of jejunum (principal); K56.609 Unspecified intestinal obstruction, unspecified as to partial versus complete obstruction; E78.00 Pure hypercholesterolemia, unspecified; R64 Cachexia; E78.5 Hyperlipidemia, unspecified; Z79.84 Long term (current) use of oral hypoglycemic drugs; Z51.5 Encounter for palliative care; F32.9 Major depressive disorder, single episode, unspecified; Z66 Do not resuscitate; I10 Essential (primary) hypertension; H40.9 Unspecified glaucoma; Z96.659 Presence of unspecified artificial knee joint; K21.9 Gastro-esophageal reflux disease without esophagitis; N40.0 Benign prostatic hyperplasia without lower urinary tract symptoms; R73.03 Prediabetes; Z87.891 Personal history of nicotine dependence; Z79.899 Other long term (current) drug therapy; Z86.73 Personal history of transient ischemic attack (TIA), and cerebral infarction without residual deficits; Z86.010 Personal history of colon polyps; Z98.890 Other specified postprocedural states; Z98.52 Vasectomy status; Z68.22 Body mass index [BMI] 22.0-22.9, adult
CPT/HCPCS: 36415 ×3; 71045; 74019; 74177; 80048; 80053 ×2; 81001; 82947 ×3; 83605; 83690; 83735 ×3; 84484; 85025 ×3; 93005; A9270 ×5; C9113 ×3; J1200; J1650; J2405; J2765; J3475; J3480; J3490 ×4; J7030 ×2; J7120 ×5; Q9967; 43752; 93010; 96361; 96374; 96375; 99291; J1642

== ENCOUNTER 2023-03-12 08:45 | Emergency (ER) | payer MEDICARE, OTHER ==
[2023-03-12] MEDS ORDERED: Sodium Chloride 0.9% 1,000 ML IV ONE ×2 (10:26→11:52)
[2023-03-12] MEDS ORDERED: Ondansetron 4 MG/2 ML SDV IVPUSH ONE (10:26)
[2023-03-12 10:39] LABS: BASOPHILS PERCENT AUTO 0.1 % (0.0-1.5); EOSINOPHILS PERCENT AUTO 0.1 % (0.0-7.0); HEMATOCRIT 42.2 % (38.0-50.0); HEMOGLOBIN 13.6 g/dL (13.0-17.0); LYMPHOCYTES ABSOLUTE AUTO 1.1 K/uL (0.6-2.4); MEAN CORPUSCULAR HEMOGLOBIN 28.8 pg (27.0-32.0); MEAN CORPUSCULAR HGB CONC 32.2 g/dL (31.0-37.0); MEAN CORPUSCULAR VOLUME 89.4 fL (80.0-98.0); MONOCYTES ABSOLUTE AUTO 1.7 K/uL (0.0-0.8); MONOCYTES PERCENT AUTO 8.8 % (0.0-15.0); NRBC ABSOLUTE 0 K/uL; PLATELET COUNT,PLT 205 K/uL (150-400); RED BLOOD CELL COUNT 4.72 M/uL (4.50-5.90); WHITE BLOOD CELL COUNT,WBC 18.81 K/uL (4.0-11.0)
[2023-03-12] MEDS ORDERED: Piperacillin/Tazobactam 3.375 GM in Sodium Chloride 0.9% 100 ML IV ONE (11:07)
[2023-03-12 11:32] LABS: ALBUMIN 3.3 g/dL (3.4-5.0); BILIRUBIN TOTAL 1.6 mg/dL (0.2-1.0); CALCIUM 8.6 mg/dL (8.5-10.1); CARBON DIOXIDE,CO2 25.5 mmol/L (21.0-32.0); CREATININE 1.4 mg/dL (0.8-1.3); EST CRCL DRUG DOSING (CG) 42.81 mL/min; MAGNESIUM 1.6 mg/dL (1.8-2.4); POTASSIUM,K 3.4 mmol/L (3.5-5.1); PROTEIN TOTAL,TP 6.6 g/dL (6.4-8.2)
[2023-03-12 11:32] LABS: APPEARANCE,URINE SLT CLOUDY; GLUCOSE,URINE 100 mg/dL (NEGATIVE); KETONES,URINE 15 mg/dL (NEGATIVE); LEUKOCYTE ESTERASE,URINE SMALL (NEGATIVE); NITRITE,URINE NEGATIVE (NEGATIVE); OCCULT BLOOD,URINE NEGATIVE (NEGATIVE); PROTEIN,URINE 30 mg/dL (NEGATIVE)
[2023-03-12 11:52] LABS: BILIRUBIN,URINE MODERATE (NEGATIVE); COLOR,URINE DARK YELLOW
[2023-03-12 11:57] LABS: EPITHELIAL CELLS,URINE RARE (NONE-FEW)
[2023-03-12 11:58] LABS: BACTERIA,URINE MANY (NEGATIVE)
[2023-03-12 12:12] LABS: CORONAVIRUS COVID-19 NAA NEGATIVE (NEGATIVE); INFLUENZA A NAA NEGATIVE (NEGATIVE); INFLUENZA B NAA NEGATIVE (NEGATIVE)
[2023-03-12] MEDS ORDERED: Iopamidol 755 MG/ML 500 ML Multipack Bottle IVPUSH STA (12:50)
[2023-03-12 15:00] LABS: LACTIC ACID 1.3 mmol/L (0.4-2.0)
== END 2023-03-12 17:57 ==
LOC: MW.ED 08:45
DX: N13.6 Pyonephrosis (principal); D72.829 Elevated white blood cell count, unspecified; A41.9 Sepsis, unspecified organism
CPT/HCPCS: 0240U; 36415; 71045; 74177; 80053; 81001; 83605; 83690; 83735; 85025; 87040; 87086; 96361; 96365; 96375; 99285; J2405; J2543; J3490; J7030; Q9967

== ENCOUNTER 2023-03-15 18:07 | Inpatient (IN) | payer MEDICARE, OTHER ==
[2023-03-15] MEDS ORDERED: diphenhydrAMINE 50 MG/ML SDV IVPUSH ONE (19:01)
[2023-03-15] MEDS ORDERED: Metoclopramide 10 MG/2 ML SDV IVPUSH ONE (19:01)
[2023-03-15] MEDS ORDERED: Famotidine 20 MG/2 ML SDV IVPUSH ONE (19:01)
[2023-03-15] MEDS ORDERED: Sodium Chloride 0.9% 1,000 ML IV ONE (19:01)
[2023-03-15] MEDS ORDERED: Sodium Chloride 0.9% 2.5 ML Syringe FLUSH PRN (19:01)
[2023-03-15] MEDS ORDERED: Sodium Chloride 0.9% 10 ML Syringe FLUSH PRN (19:01)
[2023-03-15 19:38] LABS: BASOPHILS PERCENT AUTO 0.1 % (0.0-1.5); EOSINOPHILS PERCENT AUTO 0.1 % (0.0-7.0); HEMATOCRIT 40.8 % (38.0-50.0); HEMOGLOBIN 13.1 g/dL (13.0-17.0); LYMPHOCYTES ABSOLUTE AUTO 1.3 K/uL (0.6-2.4); MEAN CORPUSCULAR HEMOGLOBIN 28.8 pg (27.0-32.0); MEAN CORPUSCULAR HGB CONC 32.1 g/dL (31.0-37.0); MEAN CORPUSCULAR VOLUME 89.7 fL (80.0-98.0); NEUTROPHILS ABSOLUTE AUTO 6.4 K/uL (1.4-5.7); NEUTROPHILS PERCENT AUTO 73.8 % (48.0-80.0); NRBC ABSOLUTE 0 K/uL; PLATELET COUNT,PLT 274 K/uL (150-400); RED BLOOD CELL COUNT 4.55 M/uL (4.50-5.90); WHITE BLOOD CELL COUNT,WBC 8.72 K/uL (4.0-11.0)
[2023-03-15 20:12] LABS: LACTIC ACID 1.4 mmol/L (0.4-2.0)
[2023-03-15 20:14] LABS: A/G RATIO 0.9 (0.9-1.6); ALBUMIN 3.7 g/dL (3.4-5.0); BILIRUBIN TOTAL 0.8 mg/dL (0.2-1.0); CALCIUM 9.7 mg/dL (8.5-10.1); CARBON DIOXIDE,CO2 26.5 mmol/L (21.0-32.0); CREATININE 0.8 mg/dL (0.8-1.3); EST CRCL DRUG DOSING (CG) 73.87 mL/min; MAGNESIUM 1.3 mg/dL (1.8-2.4); POTASSIUM,K 3.6 mmol/L (3.5-5.1); PROTEIN TOTAL,TP 7.6 g/dL (6.4-8.2)
[2023-03-15] MEDS ORDERED: Iopamidol 755 MG/ML 500 ML Multipack Bottle IVPUSH ONE (20:20)
[2023-03-15] MEDS ORDERED: cefTRIAXone 2 GM in Sodium Chloride 0.9% 50 ML IV ONE (21:56)
[2023-03-15] MEDS ORDERED: Benzocaine 20% Topical Spray UD MUCMEM ONE (22:15)
[2023-03-16] MEDS ORDERED: Morphine 2 MG/ML SYRINGE IVPUSH PRN (00:26)
[2023-03-16] MEDS ORDERED: Magnesium Sulfate/Water 2 GM/50 ML Premix Bag IV ONE (00:30)
[2023-03-16] MEDS ORDERED: 50% Dextrose in Water 50 ML Syringe IVPUSH PRN (00:44)
[2023-03-16] MEDS ORDERED: Glucagon,Human Recombinant 1 MG Vial IM PRN (00:44)
[2023-03-16] MEDS: Insulin Aspart 100 Units/ML 3 ML Pen SUBCUT SCH ×4 (01:28→18:05)
[2023-03-16] MEDS: Sodium Chloride 0.9% 1,000 ML IV SCH ×2 (01:32→09:53)
[2023-03-16] MEDS: Enoxaparin 40 MG/0.4 ML Syringe SUBCUT SCH (01:33)
[2023-03-16 06:43] LABS: BASOPHILS PERCENT AUTO 0.1 % (0.0-1.5); EOSINOPHILS PERCENT AUTO 0.3 % (0.0-7.0); HEMATOCRIT 37.5 % (38.0-50.0); HEMOGLOBIN 11.5 g/dL (13.0-17.0); LYMPHOCYTES ABSOLUTE AUTO 1.7 K/uL (0.6-2.4); LYMPHOCYTES PERCENT AUTO 15.9 % (16.0-40.0); MEAN CORPUSCULAR HGB CONC 30.7 g/dL (31.0-37.0); MEAN CORPUSCULAR VOLUME 91.2 fL (80.0-98.0); MONOCYTES ABSOLUTE AUTO 1.4 K/uL (0.0-0.8); MONOCYTES PERCENT AUTO 13.3 % (0.0-15.0); NEUTROPHILS ABSOLUTE AUTO 7.4 K/uL (1.4-5.7); NEUTROPHILS PERCENT AUTO 70.4 % (48.0-80.0); NRBC ABSOLUTE 0 K/uL; PLATELET COUNT,PLT 229 K/uL (150-400); RED BLOOD CELL COUNT 4.11 M/uL (4.50-5.90); WHITE BLOOD CELL COUNT,WBC 10.52 K/uL (4.0-11.0)
[2023-03-16 07:03] LABS: CALCIUM 8.3 mg/dL (8.5-10.1); CARBON DIOXIDE,CO2 26.1 mmol/L (21.0-32.0); CREATININE 0.7 mg/dL (0.8-1.3); EST CRCL DRUG DOSING (CG) 90.93 mL/min; POTASSIUM,K 3.3 mmol/L (3.5-5.1)
[2023-03-16] MEDS ORDERED: NS with KCl 40mEq 1,000 ML IV SCH (11:15)
[2023-03-16] MEDS ORDERED: 50% Dextrose in Water 50 ML Syringe IVPUSH ONE (11:30)
[2023-03-16] MEDS: Dextrose 5%-0.9% NaCl 1,000 ML IV SCH ×2 (12:21→20:36)
[2023-03-16] MEDS: cefTRIAXone 1 GM in Sodium Chloride 0.9% 50 ML IV SCH (21:34)
[2023-03-17] MEDS: Insulin Aspart 100 Units/ML 3 ML Pen SUBCUT SCH ×4 (00:11→17:15)
[2023-03-17] MEDS: Enoxaparin 40 MG/0.4 ML Syringe SUBCUT SCH (00:12)
[2023-03-17] MEDS: Dextrose 5%-0.9% NaCl 1,000 ML IV SCH ×2 (04:11→14:16)
[2023-03-17 06:15] LABS: BASOPHILS PERCENT AUTO 0.1 % (0.0-1.5); EOSINOPHILS ABSOLUTE AUTO 0.1 K/uL (0.0-0.7); HEMOGLOBIN 10.4 g/dL (13.0-17.0); LYMPHOCYTES ABSOLUTE AUTO 1.3 K/uL (0.6-2.4); MEAN CORPUSCULAR HEMOGLOBIN 28.6 pg (27.0-32.0); MEAN CORPUSCULAR HGB CONC 31.5 g/dL (31.0-37.0); MEAN CORPUSCULAR VOLUME 90.7 fL (80.0-98.0); MONOCYTES ABSOLUTE AUTO 1.3 K/uL (0.0-0.8); MONOCYTES PERCENT AUTO 16.1 % (0.0-15.0); NEUTROPHILS ABSOLUTE AUTO 5.3 K/uL (1.4-5.7); NEUTROPHILS PERCENT AUTO 66.8 % (48.0-80.0); NRBC ABSOLUTE 0 K/uL; PLATELET COUNT,PLT 188 K/uL (150-400); RED BLOOD CELL COUNT 3.64 M/uL (4.50-5.90); WHITE BLOOD CELL COUNT,WBC 7.94 K/uL (4.0-11.0)
[2023-03-17 06:40] LABS: A/G RATIO 0.9 (0.9-1.6); ALBUMIN 2.5 g/dL (3.4-5.0); BILIRUBIN TOTAL 0.4 mg/dL (0.2-1.0); CALCIUM 7.5 mg/dL (8.5-10.1); CREATININE 0.5 mg/dL (0.8-1.3); EST CRCL DRUG DOSING (CG) 127.3 mL/min; MAGNESIUM 1.3 mg/dL (1.8-2.4); POTASSIUM,K 3.1 mmol/L (3.5-5.1); PROTEIN TOTAL,TP 5.4 g/dL (6.4-8.2)
[2023-03-17] MEDS ORDERED: Magnesium Sulfate/Water 4 GM in Premix Bag 1 BAG IV ONE (06:59)
[2023-03-17] MEDS: Potassium Chloride 100 ML IV SCH ×2 (09:38→11:45)
[2023-03-17] MEDS: cefTRIAXone 1 GM in Sodium Chloride 0.9% 50 ML IV SCH (22:57)
[2023-03-18] MEDS: Enoxaparin 40 MG/0.4 ML Syringe SUBCUT SCH (00:12)
[2023-03-18] MEDS: Dextrose 5%-0.9% NaCl 1,000 ML IV SCH ×2 (00:14→07:40)
[2023-03-18] MEDS: Insulin Aspart 100 Units/ML 3 ML Pen SUBCUT SCH ×3 (00:16→11:42)
[2023-03-18 06:30] LABS: BASOPHILS PERCENT AUTO 0.3 % (0.0-1.5); EOSINOPHILS ABSOLUTE AUTO 0.1 K/uL (0.0-0.7); EOSINOPHILS PERCENT AUTO 1.1 % (0.0-7.0); HEMATOCRIT 35.6 % (38.0-50.0); LYMPHOCYTES ABSOLUTE AUTO 1.4 K/uL (0.6-2.4); MEAN CORPUSCULAR HEMOGLOBIN 28.1 pg (27.0-32.0); MEAN CORPUSCULAR HGB CONC 30.9 g/dL (31.0-37.0); MEAN CORPUSCULAR VOLUME 90.8 fL (80.0-98.0); MONOCYTES ABSOLUTE AUTO 1.3 K/uL (0.0-0.8); MONOCYTES PERCENT AUTO 17.8 % (0.0-15.0); NEUTROPHILS ABSOLUTE AUTO 4.4 K/uL (1.4-5.7); NEUTROPHILS PERCENT AUTO 61.8 % (48.0-80.0); NRBC ABSOLUTE 0 K/uL; PLATELET COUNT,PLT 232 K/uL (150-400); RED BLOOD CELL COUNT 3.92 M/uL (4.50-5.90); WHITE BLOOD CELL COUNT,WBC 7.09 K/uL (4.0-11.0)
[2023-03-18 06:48] LABS: A/G RATIO 0.8 (0.9-1.6); ALBUMIN 2.8 g/dL (3.4-5.0); BILIRUBIN TOTAL 0.4 mg/dL (0.2-1.0); CALCIUM 7.6 mg/dL (8.5-10.1); CARBON DIOXIDE,CO2 26.4 mmol/L (21.0-32.0); CREATININE 0.6 mg/dL (0.8-1.3); EST CRCL DRUG DOSING (CG) 106.08 mL/min; MAGNESIUM 1.6 mg/dL (1.8-2.4); POTASSIUM,K 3.1 mmol/L (3.5-5.1); PROTEIN TOTAL,TP 6.2 g/dL (6.4-8.2)
[2023-03-18] MEDS ORDERED: Magnesium Sulfate/Water 2 GM in Premix Bag 1 BAG IV ONE (07:15)
[2023-03-18] MEDS: Potassium Chloride 100 ML IV SCH ×3 (10:30→14:37)
== END 2023-03-18 17:45 | disposition hospice, home (50) | DRG 389 ==
LOC: MW.ED 18:07 → MW.MS 22:06 → OBSVTOIN 03-17 09:25
PROVIDERS: ADMIT Internal Medicine; ATTEND Internal Medicine
DX: K56.609 Unspecified intestinal obstruction, unspecified as to partial versus complete obstruction (principal); C17.1 Malignant neoplasm of jejunum; I69.354 Hemiplegia and hemiparesis following cerebral infarction affecting left non-dominant side; R64 Cachexia; Z51.5 Encounter for palliative care; E78.00 Pure hypercholesterolemia, unspecified; K21.9 Gastro-esophageal reflux disease without esophagitis; N40.0 Benign prostatic hyperplasia without lower urinary tract symptoms; Z66 Do not resuscitate; M19.90 Unspecified osteoarthritis, unspecified site; E11.9 Type 2 diabetes mellitus without complications; F03.90 Unspecified dementia, unspecified severity, without behavioral disturbance, psychotic disturbance, mood disturbance, and anxiety; Z96.659 Presence of unspecified artificial knee joint; Z79.84 Long term (current) use of oral hypoglycemic drugs; Z79.899 Other long term (current) drug therapy; Z86.010 Personal history of colon polyps; Z98.890 Other specified postprocedural states; Z98.52 Vasectomy status; Z68.31 Body mass index [BMI] 31.0-31.9, adult
CPT/HCPCS: 36415 ×3; 43752; 70450; 71045 ×2; 74177; 80048; 80053 ×2; 82947 ×2; 83605; 83690; 83735 ×3; 84484; 85025 ×3; 93005; 96361; 96365; 96375; 99285; A9270; J0696 ×2; J1200; J1650; J2765; J3475 ×2; J3480; J3490 ×4; J7030 ×3; J7042 ×3; Q9967; 93010; 96366; 96367; 96372; 99223; 99233; 99239; 99284; G0378

== ENCOUNTER 2023-03-28 09:36 | Inpatient (IN) | payer MEDICARE, OTHER ==
[2023-03-28] MEDS ORDERED: Metoclopramide 10 MG/2 ML SDV IVPUSH ONE (10:28)
[2023-03-28] MEDS ORDERED: diphenhydrAMINE 50 MG/ML SDV IVPUSH ONE (10:28)
[2023-03-28] MEDS ORDERED: Sodium Chloride 0.9% 1,000 ML IV ONE (10:28)
[2023-03-28] MEDS ORDERED: Lidocaine 2% 11 ML Jelly Filled Syringe MUCMEM STA (10:30)
[2023-03-28 10:59] LABS: BASOPHILS PERCENT AUTO 0.1 % (0.0-1.5); EOSINOPHILS PERCENT AUTO 0.1 % (0.0-7.0); HEMATOCRIT 41.8 % (38.0-50.0); HEMOGLOBIN 13.7 g/dL (13.0-17.0); LYMPHOCYTES ABSOLUTE AUTO 1.1 K/uL (0.6-2.4); LYMPHOCYTES PERCENT AUTO 9.7 % (16.0-40.0); MEAN CORPUSCULAR HEMOGLOBIN 28.8 pg (27.0-32.0); MEAN CORPUSCULAR HGB CONC 32.8 g/dL (31.0-37.0); MEAN CORPUSCULAR VOLUME 87.8 fL (80.0-98.0); MONOCYTES ABSOLUTE AUTO 1.1 K/uL (0.0-0.8); MONOCYTES PERCENT AUTO 9.8 % (0.0-15.0); NEUTROPHILS ABSOLUTE AUTO 9.2 K/uL (1.4-5.7); NEUTROPHILS PERCENT AUTO 80.3 % (48.0-80.0); NRBC ABSOLUTE 0 K/uL; PLATELET COUNT,PLT 362 K/uL (150-400); RED BLOOD CELL COUNT 4.76 M/uL (4.50-5.90); WHITE BLOOD CELL COUNT,WBC 11.51 K/uL (4.0-11.0)
[2023-03-28 11:25] LABS: ALBUMIN 4.2 g/dL (3.4-5.0); BILIRUBIN TOTAL 0.6 mg/dL (0.2-1.0); CALCIUM 9.5 mg/dL (8.5-10.1); CARBON DIOXIDE,CO2 27.6 mmol/L (21.0-32.0); CREATININE 1.3 mg/dL (0.8-1.3); EST CRCL DRUG DOSING (CG) 45.46 mL/min; POTASSIUM,K 3.3 mmol/L (3.5-5.1); PROTEIN TOTAL,TP 8.4 g/dL (6.4-8.2)
[2023-03-28] MEDS ORDERED: Lactated Ringers 1,000 ML IV ONE (15:25)
[2023-03-28] MEDS ORDERED: Ondansetron 4 MG/2 ML SDV IVPUSH PRN (16:45)
[2023-03-28] MEDS ORDERED: Morphine 2 MG/ML SYRINGE IVPUSH PRN (16:45)
[2023-03-28] MEDS ORDERED: LORazepam 2 MG/ML SDV IVPUSH PRN (16:45)
[2023-03-28] MEDS: Dextrose 5%-Lactated Ringers 1,000 ML IV SCH (17:56)
[2023-03-29] MEDS: Dextrose 5%-Lactated Ringers 1,000 ML IV SCH ×2 (03:55→14:09)
[2023-03-30] MEDS: Dextrose 5%-Lactated Ringers 1,000 ML IV SCH ×3 (00:14→20:28)
[2023-03-31] MEDS: Dextrose 5%-Lactated Ringers 1,000 ML IV SCH (06:42)
== END 2023-03-31 13:22 | disposition hospice, home (50) | DRG 375 ==
LOC: MW.ED 09:36 → MW.MS 16:16
PROVIDERS: ADMIT Family Medicine; ATTEND Family Medicine
PROC: 0D9670Z Drainage of Stomach with Drainage Device, Via Natural or Artificial Opening (ICD-10-PCS; principal; 2023-03-28)
DX: C17.1 Malignant neoplasm of jejunum (principal); K56.699 Other intestinal obstruction unspecified as to partial versus complete obstruction; E11.9 Type 2 diabetes mellitus without complications; E78.00 Pure hypercholesterolemia, unspecified; K21.9 Gastro-esophageal reflux disease without esophagitis; M19.90 Unspecified osteoarthritis, unspecified site; I69.354 Hemiplegia and hemiparesis following cerebral infarction affecting left non-dominant side; Z51.5 Encounter for palliative care; Z96.659 Presence of unspecified artificial knee joint; Z66 Do not resuscitate; Z96.0 Presence of urogenital implants; Z79.2 Long term (current) use of antibiotics; N40.0 Benign prostatic hyperplasia without lower urinary tract symptoms; Z79.84 Long term (current) use of oral hypoglycemic drugs; Z86.010 Personal history of colon polyps; Z98.890 Other specified postprocedural states; Z79.899 Other long term (current) drug therapy
CPT/HCPCS: 36415; 43752; 71045; 74018; 74176; 80053; 83690; 84484; 85025; 93005; 96361; 96374; 96375; 99285; J1200; J2765; J7030; 82947; 93010; 99284; J2270; J2405; J7120; J7121